=== PATIENT | female | born 1955 | race Caucasian/White ===

== ENCOUNTER 2018-03-03 22:00 | Emergency (ER) | payer MEDICARE ==
[2018-03-03 22:40] LABS: #Eosinphils 0.2 thou/uL (0.0-0.7); #Lymphocytes 2.3 thou/uL (1.20-3.40); #Monocytes 0.7 thou/uL (0.11-0.59); #Neutrophils 6.2 thou/uL (1.40-6.50); %Basophils 0.4 % (0.0-1.0); %Lymphocytes 24.5 % (21.0-51.0); %Monocytes 7.2 % (0.0-10.0); %Neutrophils 65.9 % (42.0-75.0); Mean Corpuscular HGB CONC 34.8 g/dL (32.0-36.0); Mean Corpuscular Hemoglobin 31.8 pg (27.0-31.0); Mean Corpuscular Volume 91.5 fl (81.0-99.0); Mean Platelet Volume 7.9 fL (7.4-10.4); Platelet Count 203 thou/uL (130-400); RBC Distribution Width 11.9 % (11.5-14.5); White Blood Cell (WBC) Count 9.4 thou/uL (4.8-10.8)
[2018-03-03 23:03] LABS: ALT (SGPT) 21 U/L (8-55); AST (SGOT) 14 U/L (5-34); Albumin 4.2 g/dL (3.4-4.8); Alkaline Phosphatase 92 U/L (40-150); Anion Gap 12 mmol/L (10-20); BUN (Urea Nitrogen) 13 mg/dL (9.8-20.1); Bilirubin, Total 0.4 mg/dL (0.2-1.2); Calc. Creatinine Clearance 0 mL/min (70-130); Calcium 10.3 mg/dL (7.8-10.44); Carbon Dioxide 26 mmol/L (23-31); Chloride 105 mmol/L (98-107); Estimated GFR-MDRD 75; Globulin 2.7 g/dL (2.4-3.5); Glucose 100 mg/dL (80-115); Potassium 4.3 mmol/L (3.5-5.1); Protein, Total 6.9 g/dL (6.0-8.3); Sodium 139 mmol/L (136-145)
--- NOTE | 2018-03-03 23:29 | ULT ---
LEFT LOWER EXTREMITY VENOUS DOPPLER WITH SPECTRAL ANALYSIS AND COLORFLOW EVALUATION: 03/03/2018 HISTORY: Left lower extremity pain, redness, and swelling. History of peripheral arterial disease. TECHNIQUE: Bolaños-scale, color-flow, Doppler evaluation, and spectral analysis of the left lower extremity venous structures is performed with 2D imaging. The left lower extremity common femoral, superficial femora l, popliteal, posterior tibial, most proximal greater saphenous, and profunda femoral veins are image d. FINDINGS: There is normal lumen compressibility, flow, and augmentation of the visualized deep venous structure s of the left lower extremity. IMPRESSION: No evidence of deep venous thrombosis involving the visualized deep venous structures of the left low er extremity. POS: KENN
[2018-03-04] MEDS ORDERED: Fentanyl 100 MCG/2 ML VIAL ONE (00:22)
== END 2018-03-04 00:45 | disposition home or self-care (01) ==
LOC: ERS 22:00
DX: I82.4Z2 Acute embolism and thrombosis of unspecified deep veins of left distal lower extremity (principal); F17.210 Nicotine dependence, cigarettes, uncomplicated; Z86.718 Personal history of other venous thrombosis and embolism; Z86.73 Personal history of transient ischemic attack (TIA), and cerebral infarction without residual deficits
CPT/HCPCS: 36415; 80053; 83605; 85025; 96374; 99406; J3010

== ENCOUNTER 2019-04-13 20:21 | Inpatient (IN) | payer MEDICARE ==
[~2019-04-13 20:21] MED LIST: Iopamidol 370 76% 100 ML VIAL ONE
--- NOTE | 2019-04-13 21:33 | RAD ---
EXAM: Single view of the chest HISTORY: Chest pain; left foot discoloration COMPARISON: 09/26/2010 FINDINGS: Single view of the chest shows a normal sized cardiomediastinal silhouette. There is no valery dence of consolidation, mass, or pleural effusion. Degenerative changes are seen in the spine. IMPRESSION: No evidence of acute cardiopulmonary disease
[2019-04-13 21:50] LABS: #Eosinphils 0.2 thou/uL (0.0-0.7); #Monocytes 0.7 thou/uL (0.11-0.59); #Neutrophils 5.3 thou/uL (1.40-6.50); %Basophils 0.5 % (0.0-1.0); %Eosinophils 2.1 % (0.0-10.0); %Lymphocytes 24.6 % (21.0-51.0); %Neutrophils 64.8 % (42.0-75.0); Hemoglobin 14.2 g/dL (12.0-16.0); Mean Corpuscular Hemoglobin 29.8 pg (27.0-31.0); Mean Corpuscular Volume 87.7 fL (78.0-98.0); Mean Platelet Volume 7.8 fL (7.4-10.4); Platelet Count 192 thou/uL (130-400); RBC Distribution Width 12.3 % (11.5-14.5); Red Blood Cell (RBC) Count 4.77 mill/uL (4.20-5.40); White Blood Cell (WBC) Count 8.2 thou/uL (4.8-10.8)
[2019-04-13 22:13] LABS: ALT (SGPT) 17 U/L (8-55); AST (SGOT) 15 U/L (5-34); Albumin 4.2 g/dL (3.4-4.8); Alkaline Phosphatase 96 U/L (40-150); Anion Gap 12 mmol/L (10-20); BUN (Urea Nitrogen) 12 mg/dL (9.8-20.1); Bilirubin, Total 0.5 mg/dL (0.2-1.2); Calc. Creatinine Clearance 0 mL/min (70-130); Calcium 10.2 mg/dL (7.8-10.44); Carbon Dioxide 24 mmol/L (23-31); Chloride 108 mmol/L (98-107); Estimated GFR-MDRD 75; Globulin 2.3 g/dL (2.4-3.5); Glucose 100 mg/dL (80-115); Potassium 4.1 mmol/L (3.5-5.1); Protein, Total 6.5 g/dL (6.0-8.3); Sodium 140 mmol/L (136-145)
--- NOTE | 2019-04-13 23:23 | CT ---
EXAM: CTA of the abdomen, pelvis, and bilateral lower extremities HISTORY: Left decreased pulses with left foot pain and discoloration COMPARISON: None TECHNIQUE: Multiple contiguous axial images were obtained a CTA of the abdomen, pelvis, and bilateral lower extremities with contrast. Sagittal and coronal 3-D MIP reformats were performed. FINDINGS: Liver: Unremarkable. Gallbladder: Absent. Kidneys: Unremarkable. Spleen: Unremarkable Pancreas: Unremarkable Bowel: Unremarkable. Retroperitoneum: No lymphadenopathy Reproductive organs: unremarkable Bones: Degenerative changes in the spine. Inferior thorax: Unremarkable Abdominal aorta. Normal caliber with mild diffuse atherosclerotic disease Celiac trunk: Patent SMA: Patent MARY ANN: Patent Renal arteries: Bilateral single renal arteries without significant atherosclerotic disease Bilateral common iliac arteries: Moderate diffuse nonfocal atherosclerotic disease Internal iliac arteries: Moderate diffuse nonfocal atherosclerotic disease External iliac arteries: Unremarkable Common femoral arteries: Unremarkable Frontal femoral arteries: Unremarkable Superficial femoral arteries: No significant right SFA abnormality. Occluded left SFA proximally. Popliteal arteries: No significant right popliteal artery abnormality. Reconstituted flow in the left popliteal artery via profunda collaterals. 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
[2019-04-14] MEDS ORDERED: Ondansetron PF 4 MG/2 ML Vial IVP PRN ×2 (00:56→11:48)
[2019-04-14] MEDS ORDERED: Ondansetron ODT 4 MG TAB SL PRN (00:56)
[2019-04-14 01:33] VITALS: BMI 41.2
--- NOTE | 2019-04-14 03:38 | HP ---
CHIEF COMPLAINT: Left foot pain and discoloration. HISTORY OF PRESENT ILLNESS: Ms. Whaley is a pleasant 63-year-old woman, with a history of peripheral arterial disease with recurring ischemic-type changes of the left foot requiring multiple procedures in the past including femoral popliteal bypass surgery x4 and femoral stent placement. The patient states she had throbbing pain on Sunday with bluish discoloration of her left foot, lasting approximately an hour and a half. Yesterday, the pain recurred again as well as the discoloration and persisted prompting her to come into the emergency department. In the ED, when assessed, she was noted to have discoloration with the foot being cool to touch. The patient apparently was seen in [place] back in October when she had her last surgery and was told there was 98% blockage to the left femoral artery. The patient currently reports a pain level of 10/10 and states it feels like severe throbbing that begins at the knee and worsens as it gets down to the ankle. Her case was discussed with Dr. Upton as per ED physician, who advised the patient to remain n.p.o. and he will see her in the morning. In the ED, there was difficulty palpating pulses even with the assistance of a Doppler. Of note, the CT angiogram did confirm occlusion of the left superficial femoral artery with reconstitution of flow distal to the knee via profunda collaterals. REVIEW OF SYSTEMS: The patient denies having any recent fevers, chills, or sweats. Denies having any headaches or dizziness. She does report feeling nauseated yesterday and so she did not take any of her regular medications. Denies having any abdominal pain or cramping. No urinary symptoms. No bowel changes. Denies having any other complaints. She denies any chest pain, palpitations, or shortness of breath. All other review of systems are negative. PAST MEDICAL HISTORY: 1. DVT. 2. Heart attack x3 in February. 3. TIA. PAST SURGICAL HISTORY: 1. CABG x2. 2. Appendectomy. 3. Cholecystectomy. 4. Tubal ligation. 5. Femoral-popliteal bypass surgery x4. SOCIAL HISTORY: The patient drinks socially and denies any tobacco use. Denies any drug use. ALLERGIES: 1. CODEINE. 2. DARVOCET. 3. DEMEROL. 4. MORPHINE. CURRENT MEDICATIONS: 1. Aspirin. 2. Clopidogrel. 3. Gabapentin. 4. Metoprolol. 5. Nitroglycerin. 6. Atorvastatin. PHYSICAL EXAMINATION: GENERAL: The patient was found sleeping and did not appear to be in any significant distress. VITAL SIGNS: Temperature 98.2, pulse 75, respirations 18, and O2 saturation 96% on room air, blood pressure 110/72. HEENT: Normocephalic and atraumatic. Pupils are equal, round, and reactive to light. Sclerae are without icterus. Oropharynx is clear. NECK: Supple. LUNGS: Clear to auscultation bilaterally. CARDIAC: Regular rate and rhythm. ABDOMEN: Soft, nontender, nondistended. Normoactive bowel sounds present. EXTREMITIES: Left foot cool to touch with slight discoloration. Mild dusky appearance to the plantar aspect. Unable to palpate pedal pulses. NEUROLOGIC: Alert and oriented x3. SKIN: Otherwise normal. Warm and dry. LABORATORY DATA: White blood count 8.2, hemoglobin 14.2, platelets 192. Sodium 140, potassium 4.1, creatinine 0.77, GFR 75, BUN 12, lactic acid 1.0, glucose 100. LFTs unremarkable. Troponin negative. Albumin 4.2, total protein 6.5. IMAGING DATA: As mentioned above in HPI. IMPRESSION AND PLAN: Ms. Whaley is a 63-year-old woman, being admitted for management of the following. 1. CT confirmed occlusion of the left superficial femoral artery. Case has been discussed with Dr. Upton who plans to evaluate tomorrow morning. At present, the patient complaining of 10/10 pain; however, allergic to multiple narcotics. We will try IV acetaminophen. Dr. Avendaño has advised to hold Plavix. We will also gently hydrate given the fact she may receive contrast with any surgery related studies. 2. Hypertension. The patient missed blood pressure medicine yesterday and today her blood pressure is on the lower side. We will continue to monitor blood pressure. We did reconcile her home medications. 3. Nausea. We have prescribed Zofran p.r.n. 4. Gastrointestinal prophylaxis. 5. Deep venous thrombosis prophylaxis. No mechanical SCDs. At this present time, any anticoagulation is surgically contraindicated given the fact she may undergo surgery tomorrow. 6. Full code status. Her surrogate decision maker is her daughter, Carol Whaley. The patient's case was discussed with Dr. Avendaño, who agrees with the plan of care as described above. Job ID: [id number]
[2019-04-14 04:29] LABS: #Eosinphils 0.1 thou/uL (0.0-0.7); #Monocytes 0.7 thou/uL (0.11-0.59); #Neutrophils 4.2 thou/uL (1.40-6.50); %Basophils 0.2 % (0.0-1.0); %Lymphocytes 28.8 % (21.0-51.0); %Monocytes 9.5 % (0.0-10.0); %Neutrophils 59.5 % (42.0-75.0); Hemoglobin 13.3 g/dL (12.0-16.0); Mean Corpuscular HGB CONC 34.1 g/dL (32.0-36.0); Mean Corpuscular Hemoglobin 30.1 pg (27.0-31.0); Mean Corpuscular Volume 88.3 fL (78.0-98.0); Mean Platelet Volume 7.9 fL (7.4-10.4); Platelet Count 165 thou/uL (130-400); RBC Distribution Width 12.2 % (11.5-14.5); Red Blood Cell (RBC) Count 4.42 mill/uL (4.20-5.40)
[2019-04-14 04:41] LABS: INR-International Normal Ratio 1.1; Prothrombin Time 14.6 SEC (12.0-14.7)
[2019-04-14 04:42] LABS: PTT 32.3 SEC (22.9-36.1)
[2019-04-14 04:53] LABS: Anion Gap 10 mmol/L (10-20); BUN (Urea Nitrogen) 10 mg/dL (9.8-20.1); Calc. Creatinine Clearance 138 mL/min (70-130); Carbon Dioxide 24 mmol/L (23-31); Chloride 109 mmol/L (98-107); Estimated GFR-MDRD 83; Glucose 95 mg/dL (80-115); Potassium 4.1 mmol/L (3.5-5.1); Sodium 139 mmol/L (136-145)
[2019-04-14] MEDS: Sodium Chloride 0.9% 1,000 ML IV SCH ×3 (05:35→22:44)
[2019-04-14] MEDS: Acetaminophen 650 MG in Premix Bag 1 BAG IVPB SCH ×2 (05:35→11:09)
[2019-04-14] MEDS: Metoprolol Tartrate 25 MG TAB PO SCH ×2 (08:53→20:31)
[2019-04-14] MEDS ORDERED: Famotidine/PF 20 mg/2ml Vial SLOW IVP SCH (09:00)
--- NOTE | 2019-04-14 11:01 | PDOC.PN ---
- Subjective Encounter Start Date: 04/14/19 Encounter Start Time: 09:00 -: old records requested/rev pt has left foot pain, no other complaints Patient seen and examined. No overnight events - Objective Resuscitation Status - Order Detail: 04/14/19 02:30 Resuscitation Status Routine Co-Sign Provider: Resuscitation Status: FULL: Full Resuscitation MAR Reviewed: Yes Vital Signs & Weight: Vital Signs (12 hours) Temp Pulse Resp BP Pulse Ox 04/14/19 07:55 97.7 F 61 16 98/65 96 04/14/19 04:00 98 F 62 16 100/66 95 04/14/19 01:30 96 04/14/19 00:55 98.2 F 75 18 110/72 96 Weight Weight 240 lb 3.2 oz I&O: 04/13/19 04/14/19 04/15/19 06:59 06:59 06:59 Intake Total 225 Balance 225 Result Diagrams: 04/14/19 04:09 04/14/19 04:09 Radiology Reviewed by me: Yes Phys Exam - Physical Examination Constitutional: NAD HEENT: PERRLA, moist MMs, sclera anicteric Neck: no JVD, supple Respiratory: no wheezing, no rales, no rhonchi Cardiovascular: RRR, no significant murmur, no rub Gastrointestinal: soft, non-tender, no distention, positive bowel sounds left foot cold, no discoloration Neurological: non-focal, normal sensation, moves all 4 limbs Lymphatic: no nodes Psychiatric: normal affect, A&O x 3 Skin: no rash, normal turgor Dx/Plan (1) Ischemia of left lower extremity Code(s): I99.8 - OTHER DISORDER OF CIRCULATORY SYSTEM Status: Acute (2) Occlusion of left femoral artery Code(s): I70.202 - UNSP ATHSCL [place] ARTERIES OF EXTREMITIES, LEFT LEG Status : Acute Comment: LEFT SUPERFICIAL FEMORAL ARTERY OCCLUSION (3) CAD (coronary artery disease) Code(s): I25.10 - ATHSCL HEART DISEASE OF [place] CORONARY ARTERY W/O ANG PCTRS Status: Chronic (4) Dyslipidemia Code(s): E78.5 - HYPERLIPIDEMIA, UNSPECIFIED Status: Chronic (5) Hypertension Code(s): I10 - ESSENTIAL (PRIMARY) HYPERTENSION Status: Chronic (6) Morbid obesity with BMI of 40.0-44.9, adult Code(s): E66.01 - MORBID (SEVERE) OBESITY DUE TO EXCESS CALORIES; Z68.41 - BODY MASS INDEX (BMI) 40.0-44.9, ADULT Status: Chronic (7) PAD (peripheral artery disease) Code(s): I73.9 - PERIPHERAL VASCULAR DISEASE, UNSPECIFIED Status: Chronic (8) Tobacco abuse Code(s): Z72.0 - TOBACCO USE Status: Chronic - Plan cont current plan of care * CV surgery recommendation noted * plan for angiography and get medical record from previous surgery * medication reviewed as below * symptomatic treatment. * pain control * home meds reconciled Review of Systems - Review of Systems ENT: negative: Ear Pain, Ear Discharge, Nose Pain, Nose Discharge, Nose Congestion, Mouth Pain, Mouth Swelling, Throat Pain, Throat Swelling, Other Respiratory: negative: Cough, Dry, Shortness of Breath, Hemoptysis, SOB with Excertion, Pleuritic Pain, Sputum, Wheezing Cardiovascular: negative: chest pain, palpitations, orthopnea, paroxysmal nocturnal dyspnea, edema, light headedness, other Gastrointestinal: negative: Nausea, Vomiting, Abdominal Pain, Diarrhea, Constipation, Melena, Hematochezia, Other Genitourinary: negative: Dysuria, Frequency, Incontinence, Hematuria, Retention , Other Musculoskeletal: Foot Pain. negative: Neck Pain, Shoulder Pain, Arm Pain, Back Pain, Hand Pain, Leg Pain, Other Skin: negative: Rash, Lesions, Andre, Bruising, Other - Medications/Allergies Allergies/Adverse Reactions: Allergies Allergy/AdvReac Type Severity Reaction Status Date / Time codeine Allergy Rash Verified 04/14/19 01:22 hydrocodone Allergy Rash Verified 04/14/19 01:22 meperidine [From Demerol] Allergy Rash Verified 04/14/19 01:22 morphine Allergy Rash Verified 04/14/19 01:22 propoxyphene Allergy Rash Verified 04/14/19 01:22 [From Darvocet-N] Medications: Current Medications Atorvastatin Calcium (Lipitor) 80 mg PO HS FELICE Famotidine (Pepcid) 20 mg SLOW IVP Q12HR [facility] Last Admin: 04/14/19 08:40 Dose: 20 mg Acetaminophen 650 mg/ Device 65 mls @ 400 mls/hr IVPB Q6HR [facility]EL[facility] Stop: 04/15/19 00:09 Last Admin: 04/14/19 05:35 Dose: 65 mls Sodium Chloride (Normal Saline 0.9%) 1,000 mls @ 75 mls/hr IV .[id number] [facility] Last Admin: 04/14/19 05:35 Dose: 1,000 mls Metoprolol Tartrate (Lopressor) 12.5 mg PO BID [facility] Last Admin: 04/14/19 08:53 Dose: Not Given Ondansetron HCl (Zofran) 4 mg IVP Q6H PRN PRN Reason: Nausea/Vomiting Stop: 04/14/19 11:43 Ondansetron HCl (Zofran Odt) 4 mg SL Q6H PRN PRN Reason: Nausea/Vomiting Stop: 04/14/19 11:43 Sodium Chloride (Flush - Normal Saline) 10 ml IVF Q12HR [facility] Last Admin: 04/14/19 08:41 Dose: 10 ml Sodium Chloride (Flush - Normal Saline) 10 ml IVF PRN PRN PRN Reason: Saline Flush
[2019-04-14] MEDS ORDERED: Sodium Chloride 0.65% Nasal 44 ML BOT EA NARE PRN (11:48)
[2019-04-14] MEDS ORDERED: Loratadine 10 MG TAB PO PRN (11:48)
[2019-04-14] MEDS ORDERED: Loperamide HCl 2 MG CAP PO PRN (11:48)
[2019-04-14] MEDS ORDERED: Cepastat Lozenges 1 LOZ PO PRN (11:48)
[2019-04-14] MEDS ORDERED: Zolpidem Tartrate 5 MG TAB PO PRN (11:48)
[2019-04-14] MEDS ORDERED: hydrALAZINE 20 MG/ML VIAL SLOW IVP PRN (11:48)
[2019-04-14] MEDS ORDERED: Ondansetron ODT 4 MG TAB PO PRN (11:48)
[2019-04-14] MEDS ORDERED: Nitroglycerin 0.4 MG TAB (25 Tab Bottle) SL PRN (11:49)
[2019-04-14] MEDS ORDERED: Bisacodyl 10 MG SUPP PR PRN (12:00)
[2019-04-14] MEDS ORDERED: Diabetic Tussin 200 MG/10 ML UDCUP PO PRN (12:00)
[2019-04-14] MEDS ORDERED: Calcium Carbonate 500 MG ChewTAB PO PRN (12:00)
[2019-04-14] MEDS ORDERED: Artificial Tears 18 DROP/0.9 ML EA EYE PRN (12:00)
--- NOTE | 2019-04-14 14:02 | CON ---
DATE OF CONSULTATION: 04/14/2019 CHIEF COMPLAINT: Left foot pain. HISTORY OF PRESENT ILLNESS: The patient is a 63-year-old woman with no history of smoking or diabetes, but a positive family history of atherosclerotic disease. She has recently moved here from the [place], [place] area. She has an extensive vascular history primarily involving her left lower extremity. She describes 4 different revascularization procedures on her left lower extremity in the last few years and describes having had a percutaneous coronary intervention following a myocardial infarction last October. On Sunday, she had a brief episode of pain and discoloration in her left leg associated with essentially crippling claudication pain. She had a second episode yesterday afternoon that persisted long enough that last night she presented to the emergency room. Though painful, she had not developed any paresthesias or neurapraxia, and the ankle remained mobile. CT angiography demonstrated findings consistent with an SFA occlusion with intact trifurcation vessel runoff. Overnight, her symptoms have largely resolved with respect to resting symptoms, but she still has difficulty doing much more than simply walking from the bed to the bathroom and back. PAST MEDICAL HISTORY: As above. MEDICATIONS: 1. Lopressor 12.5 mg b.i.d. 2. Lipitor 80 mg at bedtime. 3. Plavix 75 mg a day. 4. Baby aspirin a day. ALLERGIES: SHE REPORTS RASHES WITH CODEINE, HYDROCODONE, MEPERIDINE, MORPHINE, AND PROPOXYPHENE. SOCIAL HISTORY: She denies smoking. She has a younger sister, who has had a heart attack. REVIEW OF SYSTEMS: Negative for any chest pain currently. Negative for any shortness of breath. Negative for eye, speech, facial, or extremity symptoms consistent with recent TIAs. PHYSICAL EXAMINATION: GENERAL: She is in no distress. VITAL SIGNS: She is 5 feet 4 inches, weighs 240 pounds. Heart rate 61, blood pressure 98/65, temperature 97.7. HEENT: She has no obvious xanthelasma. No JVD. No carotid bruits. CHEST: Clear to auscultation. She has a regular rate and rhythm. ABDOMEN: Obese, soft, and nontender. EXTREMITIES: She has palpable radial and femoral pulses bilaterally. She has well-healed surgical scars on her thigh and proximal calf medially consistent with multiple femoropopliteal procedures consistent with her description of one of them being with vein. She has some dependent rubor in the left foot that is far more noticeable when she is standing than when her leg is elevated. Capillary refill in that foot is about 2 seconds. Capillary refill in the right foot is fairly brisk, but I am not able to palpate pedal pulses. There are some varicosities in the ankle on the right side. LABORATORY DATA: Showed a white count of 8.2, hemoglobin 14.2, hematocrit 41.8, platelets 192,000. PT 14.6, INR 1.1, PTT 32.3. Sodium was 140, potassium was 4.1, glucose was 100, BUN 12, creatinine 0.77. LFTs were normal. IMAGING STUDIES: Chest x-ray is essentially normal. CTA for aorta with runoffs suggest a proximal to mid SFA occlusion with reconstitution of the trifurcation vessels on the left side, which at the time of the study last night appeared tiny. There appears to be stents in the distal SFA as it is passing in the Bro canal and then in the popliteal just barely above the knee joint on the left with some calcifications in the common femoral. IMPRESSION AND RECOMMENDATIONS: The patient currently does not have a limb truly at risk, but she is going to almost surely be left with crippling claudication based on what she is describing to me right now. She probably ought to have conventional arteriography to get better detail of her anatomy, which will also potentially offer the option for percutaneous intervention, and I would like to get records from her caregivers in the [place], [place] area including Dr. Devan Myers, her vascular surgeon; Dr. Sawyer Vidal, her recruiter manager; Sahra Page, who is the nurse practitioner who provided her primary care. Job ID: [id number]
[2019-04-14] MEDS ORDERED: Acetaminophen 325 MG TAB PO PRN (14:32)
[2019-04-14] MEDS: Ketorolac Tromethamine 30 MG/ML VIAL IVP PRN (16:15)
[2019-04-14] MEDS: Atorvastatin Calcium 40 MG TAB PO SCH (20:31)
[2019-04-14] MEDS: Famotidine 20 MG TAB PO SCH (20:31)
[2019-04-14] MEDS ORDERED: Senokot S 8.6-50 MG TAB PO PRN (21:00)
[2019-04-15] MEDS: Ketorolac Tromethamine 30 MG/ML VIAL IVP PRN (05:57)
[2019-04-15] MEDS: Metoprolol Tartrate 25 MG TAB PO SCH ×2 (09:28→21:21)
[2019-04-15] MEDS: Aspirin 81 mg Enteric Coated Tablet PO SCH (11:03)
[2019-04-15] MEDS: Clopidogrel Bisulfate 75 MG TAB PO SCH (11:03)
[2019-04-15] MEDS: Famotidine 20 MG TAB PO SCH ×2 (11:03→21:20)
[2019-04-15] MEDS ORDERED: Midazolam HCl 2 mg/2 ml Vial ONE (11:08)
[2019-04-15] MEDS ORDERED: diphenhydrAMINE 50 MG/ML VIAL ONE (11:09)
--- NOTE | 2019-04-15 11:31 | PDOC.PN ---
- Subjective Encounter Start Date: 04/15/19 Encounter Start Time: 09:30 Patient seen and examined. No new complaints. No overnight events - Objective Resuscitation Status - Order Detail: 04/14/19 02:30 Resuscitation Status Routine Co-Sign Provider: Resuscitation Status: FULL: Full Resuscitation MAR Reviewed: Yes Vital Signs & Weight: Vital Signs (12 hours) Temp Pulse Resp BP Pulse Ox 04/15/19 07:54 97.5 F L 58 L 18 110/72 96 04/15/19 07:51 98 04/15/19 04:45 97.6 F 59 L 20 111/72 98 04/15/19 00:30 98.1 F 71 20 108/77 94 L Weight Weight 240 lb 3.2 oz I&O: 04/14/19 04/15/19 04/16/19 06:59 06:59 06:59 Intake Total 225 2850 Balance 225 2850 Result Diagrams: 04/14/19 04:09 04/14/19 04:09 Phys Exam - Physical Examination Constitutional: NAD HEENT: PERRLA, moist MMs, sclera anicteric Neck: no JVD, supple Respiratory: no wheezing, no rales, no rhonchi Cardiovascular: RRR, no significant murmur, no rub Gastrointestinal: soft, non-tender, no distention, positive bowel sounds Musculoskeletal: no edema, pulses present left foot cold compared to right Neurological: non-focal, normal sensation Lymphatic: no nodes Psychiatric: normal affect, A&O x 3 Dx/Plan (1) Ischemia of left lower extremity Code(s): I99.8 - OTHER DISORDER OF CIRCULATORY SYSTEM Status: Acute (2) Occlusion of left femoral artery Code(s): I70.202 - UNSP ATHSCL [place] ARTERIES OF EXTREMITIES, LEFT LEG Status : Acute Comment: LEFT SUPERFICIAL FEMORAL ARTERY OCCLUSION (3) CAD (coronary artery disease) Code(s): I25.10 - ATHSCL HEART DISEASE OF [place] CORONARY ARTERY W/O ANG PCTRS Status: Chronic (4) Dyslipidemia Code(s): E78.5 - HYPERLIPIDEMIA, UNSPECIFIED Status: Chronic (5) Hypertension Code(s): I10 - ESSENTIAL (PRIMARY) HYPERTENSION Status: Chronic (6) Morbid obesity with BMI of 40.0-44.9, adult Code(s): E66.01 - [place] (SEVERE) OBESITY DUE TO EXCESS CALORIES; Z68.41 - BODY MASS INDEX (BMI) 40.0-44.9, ADULT Status: Chronic (7) PAD (peripheral artery disease) Code(s): I73.9 - PERIPHERAL VASCULAR DISEASE, UNSPECIFIED Status: Chronic (8) Tobacco abuse Code(s): Z72.0 - TOBACCO USE Status: Chronic - Plan cont current plan of care * today plan for angiography and possible PTCA * Medication reviewed as below * symptomatic treatment. Review of Systems - Review of Systems Eyes: negative: Pain, Vision Change, Conjunctivae Inflammation, Eyelid Inflammation, Redness, Other ENT: negative: Ear Pain, Ear Discharge, Nose Pain, Nose Discharge, Nose Congestion, Mouth Pain, Mouth Swelling, Throat Pain, Throat Swelling, Other Respiratory: negative: Cough, Dry, Shortness of Breath, Hemoptysis, SOB with Excertion, Pleuritic Pain, Sputum, Wheezing Cardiovascular: negative: chest pain, palpitations, orthopnea, paroxysmal nocturnal dyspnea, edema, light headedness, other Gastrointestinal: negative: Nausea, Vomiting, Abdominal Pain, Diarrhea, Constipation, Melena, Hematochezia, Other Genitourinary: negative: Dysuria, Frequency, Incontinence, Hematuria, Retention , Other Musculoskeletal: Foot Pain. negative: Neck Pain, Shoulder Pain, Arm Pain, Back Pain, Hand Pain, Leg Pain, Other - Medications/Allergies Allergies/Adverse Reactions: Allergies Allergy/AdvReac Type Severity Reaction Status Date / Time codeine Allergy Rash Verified 04/14/19 01:22 hydrocodone Allergy Rash Verified 04/14/19 01:22 meperidine [From Demerol] Allergy Rash Verified 04/14/19 01:22 morphine Allergy Rash Verified 04/14/19 01:22 propoxyphene Allergy Rash Verified 04/14/19 01:22 [From Darvocet-N] Medications: Current Medications Acetaminophen (Tylenol) 650 mg PO Q6H PRN PRN Reason: Headache/Fever or Pain Artificial Tears (Tears Naturale) 2 drop EA EYE PRN PRN PRN Reason: Dry Eyes Aspirin (Ecotrin) 81 mg PO DAILY [facility] Last Admin: 04/15/19 11:03 Dose: Not Given Atorvastatin Calcium (Lipitor) 80 mg PO HS [facility] Last Admin: 04/14/19 20:31 Dose: 80 mg Bisacodyl (Dulcolax) [address] DAILYPRN PRN PRN Reason: Constipation Calcium Carbonate (Tums) 1,000 mg PO Q4H PRN PRN Reason: Heartburn or Indigestion Clopidogrel Bisulfate (Plavix) 75 mg PO DAILY [facility] Last Admin: 04/15/19 11:03 Dose: Not Given Famotidine (Pepcid) 20 mg PO BID [facility] Last Admin: 04/15/19 11:03 Dose: Not Given Guaifenesin (Robitussin Sf) 200 mg PO Q4H PRN PRN Reason: Cough Hydralazine HCl (Apresoline) 10 mg SLOW IVP Q4H PRN PRN Reason: SBP > 180 and HR < 70 Sodium Chloride (Normal Saline 0.9%) 1,000 mls @ 75 mls/hr IV .[id number] [facility] Last Admin: 04/14/19 22:44 Dose: 1,000 mls Ketorolac Tromethamine (Toradol) 15 mg IVP Q6H PRN PRN Reason: Pain Stop: 04/19/19 11:50 Last Admin: 04/15/19 05:57 Dose: 15 mg Loperamide HCl (Imodium) 2 mg PO PRN PRN PRN Reason: Diarrhea/Loose Stools Loratadine (Claritin) 10 mg PO DAILYPRN PRN PRN Reason: Sinus Symptoms Metoprolol Tartrate (Lopressor) 12.5 mg PO BID [facility] Last Admin: 04/15/19 09:28 Dose: 12.5 mg Nitroglycerin (Nitrostat) 0.4 mg SL Q5MIN PRN PRN Reason: chest pain Ondansetron HCl (Zofran Odt) 4 mg PO Q6H PRN PRN Reason: Nausea/Vomiting Ondansetron HCl (Zofran) 4 mg IVP Q6H PRN PRN Reason: Nausea/Vomiting Senna/Docusate Sodium (Senokot S) 2 tab PO BID PRN PRN Reason: Constipation Sodium Chloride (Flush - Normal Saline) 10 ml IVF Q12HR [facility] Last Admin: 04/15/19 09:30 Dose: Not Given Sodium Chloride (Flush - Normal Saline) 10 ml IVF PRN PRN PRN Reason: Saline Flush Sodium Chloride ([place] Nasal Arnold 0.65%) 0 ml EA NARE QIDPRN PRN PRN Reason: Nasal Congestion Throat Lozenges (Cepastat Lozenges) 1 edel PO Q2H PRN PRN Reason: Sore Throat Zolpidem Tartrate (Ambien) 5 mg PO HSPRN PRN PRN Reason: Insomnia
[2019-04-15] MEDS ORDERED: hydrALAZINE 20 MG/ML VIAL ONE (12:19)
[2019-04-15] MEDS ORDERED: Iopamidol 370 76% 50 ML VIAL FS ONE (14:39)
--- NOTE | 2019-04-15 15:26 | OP ---
DATE OF PROCEDURE: 04/15/2019 PROCEDURES PERFORMED: Ultrasound guidance, right common femoral artery access and aortography with left lower extremity runoff with selective angiography of superficial femoral artery. PREOPERATIVE DIAGNOSIS: Peripheral vascular disease. POSTOPERATIVE DIAGNOSIS: Peripheral vascular disease. ANESTHESIA: 1% lidocaine, local anesthesia with intravenous sedation consisting of 2 mg of Versed and 50 mg of Benadryl. INDICATIONS: The patient is a 63-year-old woman with multiple previous left lower extremity revascularization procedures including percutaneous and open procedures. She recently had sudden onset of discoloration and pain in her left foot that has since resolved, but she has left with essentially crippling claudication. CT angiography demonstrated occlusion of her SFA, but had marginal imaging of her outflow. FINDINGS: Proximal occlusion of the SFA. Able to advance the catheter to the midportion of the stent in the mid SFA, but not able to advance a wire or see any significant contrast passed in the SFA beyond that approach. The diseased infrageniculate popliteal artery reconstituted. The trifurcation was small and initial view of the trifurcation appeared to indicate that the posterior tibial occluded. The followup view appears that both the anterior tibial and posterior tibial crossed to the foot, but the peroneal does not quite. NARRATIVE REPORT: After informed consent was obtained, the patient was positioned on the cardiac catheterization table and her groins, prepped and draped in a sterile fashion. She was given intravenous sedation consisting of incremental doses of Versed totaling 2 mg and 50 mg of Benadryl. Ultrasound was used to identify the common femoral artery and its bifurcation. 1% lidocaine was infiltrated in the skin and subcutaneous tissues at that level and then a micropuncture needle was used to cannulate the femoral artery under ultrasonic guidance. A guidewire was placed and passed retrograde into the iliac system under fluoroscopy. The needle was removed and the micropuncture sheath was inserted over the wire. Through that sheath, a Bentson wire was placed and the micropuncture sheath was exchanged for a 5-Romanian sheath. A Contra catheter over the Bentson wire was guided into the aorta and a flush aortogram was obtained that showed no significant disease within the distal aorta or in the iliac system. The catheter was withdrawn, down to the level of the bifurcation and another aortogram was obtained getting clearer pictures of the iliacs. Under fluoroscopy, the Contra catheter and Bentson wire were manipulated to advance the wire into the left iliac system and then over that wire guide, the Bentson catheter and injection of the common femoral was undertaken. There was a network of profunda collaterals and fairly proximal occlusion of the SFA. It was relatively easy to guide the wire and catheter about half way through the stent in the mid SFA. An injection at that point, failed to show any further patency and there were profunda collaterals that were filling through reflux of contrast. The catheter was then withdrawn back to the level of the common femoral, and serial imaging was undertaken first using half-strength contrast and then with full-strength contrast in order to image the trifurcation vessels in the runoff to the foot. The catheter over the wire was then withdrawn and removed. The sheath was removed and hemostasis achieved with direct pressure. The patient was taken to the recovery area for initial observation before being returned to the room. Job ID: [id number]
[2019-04-15] MEDS ORDERED: Ketorolac Tromethamine 30 MG/ML VIAL ONE (16:30)
[2019-04-15] MEDS: Atorvastatin Calcium 40 MG TAB PO SCH (21:20)
[2019-04-16] MEDS: Sodium Chloride 0.9% 1,000 ML IV SCH (00:59)
[2019-04-16] MEDS: Ketorolac Tromethamine 30 MG/ML VIAL IVP PRN ×2 (04:40→10:12)
[2019-04-16 04:45] LABS: #Eosinphils 0.2 thou/uL (0.0-0.7); #Lymphocytes 1.9 thou/uL (1.20-3.40); #Monocytes 0.6 thou/uL (0.11-0.59); #Neutrophils 3.5 thou/uL (1.40-6.50); %Basophils 0.4 % (0.0-1.0); %Eosinophils 2.9 % (0.0-10.0); %Lymphocytes 30.3 % (21.0-51.0); %Monocytes 9.2 % (0.0-10.0); %Neutrophils 57.3 % (42.0-75.0); Hemoglobin 12.1 g/dL (12.0-16.0); Mean Corpuscular HGB CONC 34.7 g/dL (32.0-36.0); Mean Corpuscular Hemoglobin 30.8 pg (27.0-31.0); Mean Corpuscular Volume 88.7 fL (78.0-98.0); Mean Platelet Volume 8.6 fL (7.4-10.4); Platelet Count 151 thou/uL (130-400); RBC Distribution Width 12.2 % (11.5-14.5); Red Blood Cell (RBC) Count 3.93 mill/uL (4.20-5.40); White Blood Cell (WBC) Count 6.1 thou/uL (4.8-10.8)
[2019-04-16 04:59] LABS: Anion Gap 9 mmol/L (10-20); BUN (Urea Nitrogen) 21 mg/dL (9.8-20.1); Calc. Creatinine Clearance 138 mL/min (70-130); Calcium 9.4 mg/dL (7.8-10.44); Carbon Dioxide 23 mmol/L (23-31); Chloride 112 mmol/L (98-107); Estimated GFR-MDRD 83; Glucose 96 mg/dL (80-115); Potassium 4.4 mmol/L (3.5-5.1); Sodium 140 mmol/L (136-145)
[2019-04-16] MEDS: Metoprolol Tartrate 25 MG TAB PO SCH ×2 (09:18→09:23)
[2019-04-16] MEDS: Famotidine 20 MG TAB PO SCH (09:18)
[2019-04-16] MEDS: Aspirin 81 mg Enteric Coated Tablet PO SCH (09:18)
[2019-04-16] MEDS: Clopidogrel Bisulfate 75 MG TAB PO SCH (09:18)
--- NOTE | 2019-04-16 14:06 | PDOC.PN ---
- Subjective Encounter Start Date: 04/16/19 Encounter Start Time: 10:00 Patient seen and examined. No new complaints. No overnight events still has cold left foot and pain in left foot - Objective Resuscitation Status - Order Detail: 04/14/19 02:30 Resuscitation Status Routine Co-Sign Provider: Resuscitation Status: FULL: Full Resuscitation MAR Reviewed: Yes Vital Signs & Weight: Vital Signs (12 hours) Temp Pulse Resp BP Pulse Ox 04/16/19 11:54 98.0 F 69 16 118/75 98 04/16/19 07:17 97.7 F 57 L 14 106/67 98 04/16/19 04:49 98.0 F 70 20 100/64 97 Weight Weight 240 lb 3.2 oz I&O: 04/15/19 04/16/19 04/17/19 06:59 06:59 06:59 Intake Total 2850 1250 240 Balance 2850 1250 240 Result Diagrams: 04/16/19 04:01 04/16/19 04:01 Phys Exam - Physical Examination Constitutional: NAD HEENT: PERRLA, moist MMs, sclera anicteric Neck: no JVD, supple Respiratory: no wheezing, no rales, no rhonchi Cardiovascular: RRR, no significant murmur, no rub Gastrointestinal: soft, non-tender, no distention Musculoskeletal: no edema left foot cold Neurological: non-focal, normal sensation, moves all 4 limbs Lymphatic: no nodes Psychiatric: normal affect, A&O x 3 Skin: no rash, normal turgor Dx/Plan (1) Ischemia of left lower extremity Code(s): I99.8 - OTHER DISORDER OF CIRCULATORY SYSTEM Status: Acute Comment : s/p angiography (2) Occlusion of left femoral artery Code(s): I70.202 - UNSP ATHSCL [place] ARTERIES OF EXTREMITIES, LEFT LEG Status : Acute Comment: LEFT SUPERFICIAL FEMORAL ARTERY OCCLUSION (3) CAD (coronary artery disease) Code(s): I25.10 - ATHSCL HEART DISEASE OF [place] CORONARY ARTERY W/O ANG PCTRS Status: Chronic (4) Dyslipidemia Code(s): E78.5 - HYPERLIPIDEMIA, UNSPECIFIED Status: Chronic (5) Hypertension Code(s): I10 - ESSENTIAL (PRIMARY) HYPERTENSION Status: Chronic (6) Morbid obesity with BMI of 40.0-44.9, adult Code(s): E66.01 - MORBID (SEVERE) OBESITY DUE TO EXCESS CALORIES; Z68.41 - BODY MASS INDEX (BMI) 40.0-44.9, ADULT Status: Chronic (7) PAD (peripheral artery disease) Code(s): I73.9 - PERIPHERAL VASCULAR DISEASE, UNSPECIFIED Status: Chronic (8) Tobacco abuse Code(s): Z72.0 - TOBACCO USE Status: Chronic - Plan cont current plan of care * continue medical therapy * CV surgery on case and further treatment plan will defer to them * pain controlled * medication reviewed as below * symptomatic treatment. Review of Systems - Review of Systems ENT: negative: Ear Pain, Ear Discharge, Nose Pain, Nose Discharge, Nose Congestion, Mouth Pain, Mouth Swelling, Throat Pain, Throat Swelling, Other Respiratory: negative: Cough, Dry, Shortness of Breath, Hemoptysis, SOB with Excertion, Pleuritic Pain, Sputum, Wheezing Cardiovascular: negative: chest pain, palpitations, orthopnea, paroxysmal nocturnal dyspnea, edema, light headedness, other Gastrointestinal: negative: Nausea, Vomiting, Abdominal Pain, Diarrhea, Constipation, Melena, Hematochezia, Other Genitourinary: negative: Dysuria, Frequency, Incontinence, Hematuria, Retention , Other Musculoskeletal: Foot Pain. negative: Neck Pain, Shoulder Pain, Arm Pain, Back Pain, Hand Pain, Leg Pain, Other Skin: negative: Rash, Lesions, Andre, Bruising, Other - Medications/Allergies Allergies/Adverse Reactions: Allergies Allergy/AdvReac Type Severity Reaction Status Date / Time codeine Allergy Rash Verified 04/14/19 01:22 hydrocodone Allergy Rash Verified 04/14/19 01:22 meperidine [From Demerol] Allergy Rash Verified 04/14/19 01:22 morphine Allergy Rash Verified 04/14/19 01:22 propoxyphene Allergy Rash Verified 04/14/19 01:22 [From Darvocet-N] Medications: Current Medications Acetaminophen (Tylenol) 650 mg PO Q6H PRN PRN Reason: Headache/Fever or Pain Artificial Tears (Tears Naturale) 2 drop EA EYE PRN PRN PRN Reason: Dry Eyes Aspirin (Ecotrin) 81 mg PO DAILY [facility] Last Admin: 04/16/19 09:18 Dose: 81 mg Atorvastatin Calcium (Lipitor) 80 mg PO HS [facility] Last Admin: 04/15/19 21:20 Dose: 80 mg Bisacodyl (Dulcolax) 10 mg [place] DAILYPRN PRN PRN Reason: Constipation Calcium Carbonate (Tums) 1,000 mg PO Q4H PRN PRN Reason: Heartburn or Indigestion Clopidogrel Bisulfate (Plavix) 75 mg PO DAILY [facility] Last Admin: 04/16/19 09:18 Dose: 75 mg Famotidine (Pepcid) 20 mg PO BID [facility] Last Admin: 04/16/19 09:18 Dose: 20 mg Guaifenesin (Robitussin Sf) 200 mg PO Q4H PRN PRN Reason: Cough Hydralazine HCl (Apresoline) 10 mg SLOW IVP Q4H PRN PRN Reason: SBP > 180 and HR < 70 Sodium Chloride (Normal Saline 0.9%) 1,000 mls @ 75 mls/hr IV .[id number] [facility] Last Admin: 04/16/19 00:59 Dose: 1,000 mls Ketorolac Tromethamine (Toradol) 15 mg IVP Q6H PRN PRN Reason: Pain Stop: 04/19/19 11:50 Last Admin: 04/16/19 10:12 Dose: 15 mg Loperamide HCl (Imodium) 2 mg PO PRN PRN PRN Reason: Diarrhea/Loose Stools Loratadine (Claritin) 10 mg PO DAILYPRN PRN PRN Reason: Sinus Symptoms Metoprolol Tartrate (Lopressor) 12.5 mg PO BID [facility] Last Admin: 04/16/19 09:23 Dose: Not Given Nitroglycerin (Nitrostat) 0.4 mg SL Q5MIN PRN PRN Reason: chest pain Ondansetron HCl (Zofran Odt) 4 mg PO Q6H PRN PRN Reason: Nausea/Vomiting Ondansetron HCl (Zofran) 4 mg IVP Q6H PRN PRN Reason: Nausea/Vomiting Senna/Docusate Sodium (Senokot S) 2 tab PO BID PRN PRN Reason: Constipation Sodium Chloride (Flush - Normal Saline) 10 ml IVF Q12HR [facility] Last Admin: 04/16/19 09:20 Dose: Not Given Sodium Chloride (Flush - Normal Saline) 10 ml IVF PRN PRN PRN Reason: Saline Flush Sodium Chloride ([place] Nasal [place] 0.65%) 0 ml EA NARE QIDPRN PRN PRN Reason: Nasal Congestion Throat Lozenges (Cepastat Lozenges) 1 edel PO Q2H PRN PRN Reason: Sore Throat Zolpidem Tartrate (Ambien) 5 mg PO HSPRN PRN PRN Reason: Insomnia
[2019-04-16 15:22] VITALS: BP 146/81; TEMP 97.7
--- NOTE | 2019-04-16 15:25 | DIS ---
DATE OF ADMISSION: 04/14/2019 DATE OF DISCHARGE: 04/16/2019 PRIMARY CARE PHYSICIAN: [facility] Call Admission. DISCHARGE DISPOSITION: Home. PRIMARY DISCHARGE DIAGNOSES: Ischemia of left foot, occlusion of left superficial femoral artery. SECONDARY DISCHARGE DIAGNOSES: Tobacco abuse disorder, peripheral arterial disease, morbid obesity with BMI of 41, hypertension, dyslipidemia, coronary artery disease. PRIMARY PROCEDURE/OPERATION: Angiography of lower extremity. RADIOLOGICAL INVESTIGATION: Aorta with runoff CT angiography showed occlusion of left superficial femoral artery. SIGNIFICANT LABORATORY DATA: WBC 6.1, hemoglobin 12.1, platelets 151. INR 1.1. Sodium 140, creatinine 0.71, calcium 9.4. LFT normal. Cardiac enzyme negative. DISCHARGE MEDICATIONS: The patient will continue all her previous medications. 1. Nitroglycerin 0.4 mg sublingual p.r.n. as directed. 2. Aspirin 81 mg daily. 3. Lipitor 80 mg p.o. at bedtime. 4. Plavix 75 mg p.o. daily. 5. Lopressor 12.5 mg b.i.d. 6. Tums 1000 mg q.4 hourly p.r.n. CONTRAINDICATION: None. CODE STATUS: Full code. INPATIENT SENIOR COBOL DEVELOPER: Dr. Upton was consulted while in hospital. ALLERGIES: CODEINE, HYDROCODONE, DEMEROL, MORPHINE, PROPOXYPHENE. DISCHARGE PLAN: Posthospital, the patient is instructed to follow up with primary care physician as well as the patient is also instructed to follow up with primary obiee consultant and primary cardiovascular surgeon. HOSPITAL COURSE: A 63-year-old female, who was initially evaluated at [facility]. Subsequently, she was brought to our emergency room for evaluation. The patient was having left foot coldness and pain. She has underlying history of peripheral arterial disease. She had CT angiography, which showed occlusion of the left superficial femoral artery. We consulted cardiovascular surgeon for further management. We obtained medical record from her primary obiee consultant and primary cardiovascular surgeon's office. Subsequently, cardiovascular surgeon decided to do an invasive angiography. Based on invasive angiography report, the patient has significant vascular problem, but cardiovascular surgeon decided that it is not fixable problem for them and that is why they decided to discharge her home with medical therapy. The patient is seen and examined at bedside today. Please see my progress note from today for further detail. The patient is discharged by cardiovascular surgeon. Job ID: [id number]
--- NOTE | 2019-04-17 11:34 | DIS ---
DATE OF ADMISSION: 04/14/2019 DATE OF DISCHARGE: 04/16/2019 PRINCIPAL DIAGNOSIS: Peripheral vascular disease. PROCEDURES PERFORMED: Aortography with left lower extremity runoff, 04/15/2019. HISTORY OF PRESENT ILLNESS AND HOSPITAL COURSE: The patient is a 63-year-old woman with an extensive vascular history involving her left lower extremity while records from [place], [place] are not immediately available for review. She describes and has scars that are consistent with at least 2 surgical femoral popliteal bypass procedures and she has multiple stenting procedures in her left lower extremity. The day prior to admission, she had several minutes of severe pain and discoloration in her leg and then on the day of presentation, she had another episode that persisted for several hours. She was admitted to the hospital, but by the next morning her symptoms at least at rest had largely resolved. She underwent aortography with runoffs, which demonstrated occluded stents in her mid SFA, distal SFA, and in her popliteal extending down to just above the knee joint. She had proximal occlusion of her SFA, but a rich network of collaterals that filled the small infrageniculate popliteal artery. She had anterior and posterior tibial runoff to the foot, although the vessel seemed to be small. Historically, she says and she has scars consistent with previous use of vein for revascularizing that leg. At this point, she is describing severe claudication, but not truly crippling claudication and is not having any resting symptoms. Because she has such poor revascularization options and a poor track record on previous attempts at revascularization, she is going to be discharged home now with an attempt to manage her medically. I have discussed with her strategies for recruitment of collaterals through a regular walking regimen. I will plan on seeing her in the office initially in about 2 weeks, but then assuming she remains stable, every few months after that. Job ID: [id number]
== END 2019-04-16 16:15 | disposition home or self-care (01) | DRG 300 ==
LOC: ERS 20:21 → SURG A 04-14 00:43
PROVIDERS: ADMIT Internal Medicine; ATTEND Internal Medicine
PROC: B41G1ZZ Fluoroscopy of Left Lower Extremity Arteries using Low Osmolar Contrast (ICD-10-PCS; principal; 2019-04-15)
DX: I70.202 Unspecified atherosclerosis of native arteries of extremities, left leg (principal); Z68.41 Body mass index [BMI] 40.0-44.9, adult; I10 Essential (primary) hypertension; E66.01 Morbid (severe) obesity due to excess calories; Z86.718 Personal history of other venous thrombosis and embolism; Z95.1 Presence of aortocoronary bypass graft; Z90.49 Acquired absence of other specified parts of digestive tract; Z98.51 Tubal ligation status; Z88.5 Allergy status to narcotic agent; Z88.6 Allergy status to analgesic agent; Z79.82 Long term (current) use of aspirin; Z79.899 Other long term (current) drug therapy; Z72.0 Tobacco use
CPT/HCPCS: 36251; 36415; 71045; 75630; 75635; 76942; 80048; 80053; 83605; 84484; 85025; 85610; 85730; 93005; 99152; C1769; J0131; J0360; J1200; J1644; J1885; J2250; Q9967; S0028

== ENCOUNTER 2019-05-06 10:59 | Outpatient (CLI) | payer MEDICARE ==
[2019-05-06 13:40] LABS: Hemoglobin 14.5 g/dL (12.0-16.0); Mean Corpuscular HGB CONC 33.7 g/dL (32.0-36.0); Mean Corpuscular Hemoglobin 30.3 pg (27.0-31.0); Mean Corpuscular Volume 89.8 fL (78.0-98.0); Mean Platelet Volume 7.8 fL (7.4-10.4); Platelet Count 200 thou/uL (130-400); RBC Distribution Width 12.6 % (11.5-14.5); Red Blood Cell (RBC) Count 4.78 mill/uL (4.20-5.40); White Blood Cell (WBC) Count 7.9 thou/uL (4.8-10.8)
[2019-05-06 14:16] LABS: Anion Gap 11 mmol/L (10-20); BUN (Urea Nitrogen) 11 mg/dL (9.8-20.1); Calc. Creatinine Clearance 0 mL/min (70-130); Calcium 10.8 mg/dL (7.8-10.44); Carbon Dioxide 25 mmol/L (23-31); Chloride 108 mmol/L (98-107); Estimated GFR-MDRD 84; Glucose 86 mg/dL (80-115); Potassium 3.9 mmol/L (3.5-5.1); Sodium 140 mmol/L (136-145)
== END 2019-05-06 11:00 | disposition home or self-care (01) ==
LOC: LABBT 10:59
PROVIDERS: ATTEND Thoracic Surgery (Cardiothoracic Vascular Surgery)
DX: Z01.812 Encounter for preprocedural laboratory examination (principal); I73.9 Peripheral vascular disease, unspecified
CPT/HCPCS: 80048; 85027

== ENCOUNTER 2019-05-06 11:30 | Inpatient (IN) | payer MEDICARE ==
[2019-05-07] MEDS ORDERED: Heparin 5,000 UNITS/ML VIAL ONE ×2 (06:35→08:52)
[2019-05-07] MEDS ORDERED: Protamine Sulfate 50 MG/5 ML VIAL ONE ×2 (06:35→17:13)
[2019-05-07] MEDS ORDERED: Fentanyl 100 MCG/2 ML VIAL ONE ×4 (06:55→18:57)
[2019-05-07] MEDS ORDERED: Midazolam HCl 2 mg/2 ml Vial ONE (06:55)
[2019-05-07] MEDS ORDERED: Glycopyrrolate 0.2 MG/ML 5 ML SYRINGE ONE (08:52)
[2019-05-07] MEDS ORDERED: Heparin 30,000 units/30 ml VIAL ONE (08:52)
[2019-05-07] MEDS ORDERED: PROPOFOL 200 MG/20 ML VIAL ONE (08:52)
[2019-05-07] MEDS ORDERED: ePHEDrine 50 MG/ML VIAL ONE (08:52)
[2019-05-07] MEDS ORDERED: Papaverine 60 MG/2 ML VIAL ONE ×2 (08:52→13:05)
[2019-05-07] MEDS ORDERED: PHENYLEPHRINE-NS 100 MCG/ML 10 ML SYRINGE ONE (08:52)
[2019-05-07] MEDS ORDERED: Vecuronium 10 MG VIAL ONE ×2 (08:52→17:13)
[2019-05-07] MEDS ORDERED: Rocuronium Bromide 10 MG/ML (10ML VIAL) ONE (08:52)
[2019-05-07] MEDS ORDERED: Heparin 10,000 UNITS/1 ML VIAL ONE ×2 (14:36→16:32)
[2019-05-07] MEDS ORDERED: Phenylephrine HCL 10 MG/ML VIAL ONE (14:36)
[2019-05-07] MEDS ORDERED: Heparin 1,000 UNITS/ML VIAL ONE (15:00)
[2019-05-07] MEDS ORDERED: SUGAMMADEX SODIUM 500 MG/5 ML VIAL ONE (15:44)
[2019-05-07] MEDS ORDERED: Calcium Carbonate 500 MG ChewTAB PO PRN (18:22)
[2019-05-07] MEDS ORDERED: Nitroglycerin 0.4 MG TAB (25 Tab Bottle) SL PRN (18:22)
[2019-05-07] MEDS ORDERED: traMADol HCl 50 MG TAB PO PRN (18:23)
[2019-05-07] MEDS ORDERED: Promethazine HCl 25 MG/ML VIAL IM PRN (18:27)
[2019-05-07] MEDS ORDERED: Ondansetron PF 4 MG/2 ML Vial ONE (18:27)
[2019-05-07] MEDS ORDERED: Promethazine HCl 25 MG/ML VIAL SLOW IVP PRN (18:27)
[2019-05-07] MEDS ORDERED: Ondansetron HCl/PF 4 MG/2 ML Vial IVP PRN (18:27)
[2019-05-07] MEDS ORDERED: Haloperidol Lactate 5 MG/ML VIAL ONE (18:39)
[2019-05-07] MEDS: Atorvastatin Calcium 40 MG TAB PO SCH (20:15)
[2019-05-07] MEDS: traMADol HCl 50 MG TAB PO PRN (20:19)
[2019-05-07] MEDS: Fentanyl 100 MCG/2 ML VIAL SLOW IVP PRN ×2 (21:54→23:53)
[2019-05-07] MEDS: Sodium Chloride 0.9% 1,000 ML IV SCH (22:05)
[2019-05-07] MEDS: Metoprolol Tartrate 25 MG TAB PO SCH (22:28)
--- NOTE | 2019-05-08 02:29 | OP ---
DATE OF PROCEDURE: 05/07/2019 PROCEDURES PERFORMED: Left common femoral endarterectomy and profundoplasty with greater saphenous vein patch angioplasty, left common femoral artery to posterior tibial artery bypass with composite bilateral lower extremity lesser saphenous and left lower extremity greater saphenous tributary veins. PREOPERATIVE DIAGNOSIS: Peripheral vascular disease with ischemic rest pain and nonhealing wound. POSTOPERATIVE DIAGNOSIS: Peripheral vascular disease with ischemic rest pain and nonhealing wound. ANESTHESIA: General endotracheal anesthesia. INDICATIONS FOR PROCEDURE: The patient is a 63-year-old woman who has had multiple left lower extremity revascularization procedures, both open and percutaneous. Over the fairly recent past, she [place] and she developed severe claudication and some discoloration in her foot. Overnight the rest pain and discoloration dramatically improved, but she continued to have some near crippling claudication. Arteriography at that time showed an occluded SFA and a small diseased infrageniculate popliteal artery with small but intact tibial runoff to the foot. She had already had saphenous vein harvested for at least one of her procedures, but when she presented for followup, she had progressed to rest pain and marked discoloration of her forefoot and she had a recent injury to that foot where the dog had scratched her foot and there was scant evidence of healing. Venous mapping showed a very short stump of greater saphenous vein at the left ankle, but intact lesser saphenous in both calves. The combined length appeared to be adequate to reach from groin to mid calf and she is now taken to the operating room in an attempt for limb salvage. FINDINGS: While the external caliber of the lesser saphenous all appeared to be adequate and in fact, in some areas appeared to be thin-walled, post revascularization areas were found to be very thick-walled with compromised lumen and although postprocedure, a good Doppler signal could be identified in the graft and in the posterior tibial within the relatively deep wound. In the lower leg, no Doppler signals could be identified in the foot itself transcutaneous. NARRATIVE REPORT: After informed consent was obtained, the patient was taken to the operating room. General endotracheal anesthesia was induced on her gurney. Her endotracheal tube was controlled. Her face in the operating table was appropriately padded and she was turned into the prone position on the operating table. Ultrasonographic mapping of both lesser saphenous veins was undertaken and the legs were marked. Her lower legs were circumferentially prepped and draped. Lesser saphenous was harvested from the popliteal fossa down to just above the heel bilaterally and the veins were prepared for use as grafts. The 2 veins were somewhat small, but appeared to be of adequate size and quality and appeared to be of similar quality. The composite length appeared to be adequate to reach from mid calf to the groin. Those wounds were closed in layers of subcutaneous and subcuticular Vicryl and a Dermabond was applied. The patient was then turned back onto the gurney and then transferred back to the operating table in the supine position and her lower abdomen, groins, and lower extremities were prepped and draped in sterile fashion after mapping the remnant saphenous vein at the ankle. An oblique incision was made about a fingerbreadth below the groin crease on the left side. No scar was identified and upon exposing the common femoral artery, there was no evidence that it had previously been surgically manipulated. There was a fairly large thin-walled tributary to the saphenous system seen at that point. It was followed up proximally and when it was traced back to drainage into the saphenofemoral junction, the greater saphenous proper was identified about 1 handbreadth or so, greater saphenous was still intact and had Prolene suture on it. Distally that appeared to represent either a ligature or some sort of tagging and this was harvested as well. Palpation of the common femoral artery showed a good pulse in it, but there was eccentric plaque palpable within the femoral, particularly distally that seem to be mostly on the posterior aspect of the vessel wall. A longitudinal incision was made on the medial lower legs starting in about the extent of the previous medial scar below the knee. The superficial and then the deep posterior compartments were entered and the posterior tibial artery and vein were identified. The posterior tibial artery was about 1.5 to 2 mm in size and soft, but was somewhat spastic upon manipulation though isolated. A counter incision was made about a handbreadth above the knee to allow for creation of a subcutaneous tunnel fairly directly from the lower leg wound to the groin wound rather than the traditional path of the greater saphenous to minimize the length of vein that would be necessary. This corresponded with roughly the length of the lesser saphenous vein so that the vein to vein anastomosis could be constructed readily under direct vision within that wound. The lesser saphenous was reversed and anastomosed to an arteriotomy made between vascular clamps in the posterior tibial with 7-0 Prolene suture. Saline easily flushed through it. It was oriented and passed up to the counter incision in the distal thigh and a vascular clamp was used to maintain orientation. Papaverine solution was applied topically to the posterior tibial in that wound. The other lesser saphenous was reversed and the 2 were obliquely divided and spatulated to make an oblique end-to-end anastomosis with 7-0 Prolene suture. Multiple repairs were necessary as the most proximal end of the reversed lesser saphenous that had been anastomosed to the posterior tibial artery was quite thin-walled at that point. The composite graft was oriented and passed up to the groin incision, held in place with a vascular clamp. Proximal and distal control was then established on the distal external iliac artery and on the femoral bifurcation. A longitudinal arteriotomy was made in the common femoral and extended proximally and distally. The distal extent was taken down onto the origin of the profunda and endarterectomy plane was developed at the distal common femoral. Plaque was easily transected proximally and broke off in the origin of the profunda with a clean feather. The short-segment of greater saphenous from the groin wound was bivalved and used to close that endarterectomized vessel with an onlay patch. It was distended by releasing the vascular clamp briefly and a longitudinal venotomy was made in that patch and the composites lesser saphenous was anastomosed there with running Prolene. The vein to vein anastomosis in the thigh appeared problematic, although there was a good Doppler signal throughout the vein in the posterior tibial, there appeared to be a palpable change in the strength of that pulse across the anastomosis. The vessels were re-clamped and divided freshening up the ends and re-doing the oblique anastomosis with an improvement in the quality of the pulse. Protamine was administered and the wounds were closed in layers of subcutaneous and subcuticular Vicryl. Even prior to closure with a good Doppler signal in the posterior tibial within the wound, no posterior tibial could be found even immediately below that wound transcutaneously nor in the foot. The dorsalis pedis was not found either, although the veins filled in when stripped fairly quickly when examining the foot. Doppler signal could be identified in the graft just above the knee. Upon closure of the wounds, another exam was undertaken and the pulse could not be found at the knee. Attempts at visualizing it with ultrasound showed some pulsatility to the vessel to the graft proximally, but not distally. The wounds were reopened starting distally and the pulse in the graft was quite weak and the signal was quite weak. All the wounds were reopened in order to sequentially examine the whole length of the vein. Very proximally, there was a palpable pulse in the graft. There was one area found when following the vein down its tunnel from the groin that appeared somewhat narrower. An incision was made in the skin over that to better visualize it. The patient was re-heparinized and the tributary to the greater saphenous system in the groin wound was harvested and used as an interposition graft to replace that segment. When the vein was transected, the lumen at that point appeared to be small and spatulation was extended several centimeters proximally until good inflow was reestablished. But even at that, the vein wall was very thick at that point. Likewise, the graft distally was spatulated to get back to where there was better caliber. There was noticeable improvement in the Doppler signal throughout the graft and in the posterior tibial within the wound, but still no Doppler signal could be identified in the foot transcutaneously. The veins refilled fairly quickly when stripped and slowly the foot seemed to be improving in color, feeling that there really was no more that could be done. At this point, the wound was inspected for hemostasis, which appeared grossly adequate without reversal of the heparin and the wounds were reclosed in layers of subcutaneous Vicryl and skin luz. They were dressed. The patient was awakened and extubated in the operating room and taken to the recovery area in stable condition. Job ID: [id number]
[2019-05-08] MEDS: Fentanyl 100 MCG/2 ML VIAL SLOW IVP PRN ×9 (02:58→21:02)
[2019-05-08] MEDS: Sodium Chloride 0.9% 1,000 ML IV SCH ×2 (03:13→14:08)
[2019-05-08 03:44] LABS: #Lymphocytes 0.9 thou/uL (1.20-3.40); #Monocytes 0.6 thou/uL (0.11-0.59); #Neutrophils 8.8 thou/uL (1.40-6.50); %Basophils 0.1 % (0.0-1.0); %Eosinophils 0.1 % (0.0-10.0); %Lymphocytes 8.3 % (21.0-51.0); %Monocytes 5.6 % (0.0-10.0); %Neutrophils 85.8 % (42.0-75.0); Hemoglobin 10.7 g/dL (12.0-16.0); Mean Corpuscular HGB CONC 33.9 g/dL (32.0-36.0); Mean Corpuscular Hemoglobin 30.2 pg (27.0-31.0); Mean Corpuscular Volume 89.1 fL (78.0-98.0); Mean Platelet Volume 7.2 fL (7.4-10.4); Platelet Count 138 thou/uL (130-400); RBC Distribution Width 12.6 % (11.5-14.5); Red Blood Cell (RBC) Count 3.53 mill/uL (4.20-5.40); White Blood Cell (WBC) Count 10.3 thou/uL (4.8-10.8)
[2019-05-08 04:06] LABS: Anion Gap 10 mmol/L (10-20); BUN (Urea Nitrogen) 6 mg/dL (9.8-20.1); Calc. Creatinine Clearance 169 mL/min (70-130); Calcium 9.4 mg/dL (7.8-10.44); Carbon Dioxide 23 mmol/L (23-31); Chloride 110 mmol/L (98-107); Estimated GFR-MDRD Greater than 90; Glucose 117 mg/dL (80-115); Potassium 3.9 mmol/L (3.5-5.1); Sodium 139 mmol/L (136-145)
[2019-05-08] MEDS: Metoprolol Tartrate 25 MG TAB PO SCH ×2 (08:06→23:32)
[2019-05-08] MEDS: Aspirin 81 mg Enteric Coated Tablet PO SCH (08:06)
[2019-05-08] MEDS: Clopidogrel Bisulfate 75 MG TAB PO SCH (08:06)
[2019-05-08] MEDS ORDERED: Aspirin Chewable 81 MG TAB PO SCH (09:00)
[2019-05-08] MEDS: traMADol HCl 50 MG TAB PO PRN (14:02)
--- NOTE | 2019-05-08 15:16 | CON ---
DATE OF CONSULTATION: 05/08/2019 REASON FOR CONSULTATION: The patient is status post left common femoral endarterectomy and profundoplasty with greater saphenous vein patch angioplasty in ICU for recovery. HISTORY OF PRESENT ILLNESS: This is a 63-year-old female, who presents to the ICU after having a scheduled elective left common femoral endarterectomy and profundoplasty with greater saphenous vein patch angioplasty. This is patient's fifth revascularization surgery for peripheral vascular disease. The patient's other significant past medical history includes hypertension, coronary artery disease, status post stent placement. The patient is doing well, status post surgical intervention. REVIEW OF SYSTEMS: A 12-point review of systems is performed and are negative except as indicated in HPI are listed below. The patient denies any chest pain or shortness of breath. She does endorse left lower extremity pain, which is tolerable on current medications. The patient denies any significant lower extremity swelling. PAST MEDICAL HISTORY: 1. Peripheral vascular disease. 2. Status post left common femoral endarterectomy and profundoplasty with greater saphenous vein patch angioplasty. 3. Hypertension. 4. Coronary artery disease, status post stent placement. PAST SURGICAL HISTORY: 1. Coronary stent placement. 2. Femoral-popliteal surgical intervention x5. FAMILY HISTORY: Noncontributory per the patient. SOCIAL HISTORY: The patient states she quit smoking in August. She denies history of alcohol or drug use. ALLERGIES: 1. CODEINE. 2. HYDROCODONE. 3. MEPERIDINE. 4. MORPHINE. 5. PROPOXYPHENE. PHYSICAL EXAMINATION: VITAL SIGNS: Blood pressure 113/64, respiratory rate 17, oxygen saturation 93% on room air, heart rate 82, temp 98 degrees Fahrenheit. GENERAL: The patient is alert and oriented x3, in no acute distress. HEENT: Pupils are equally round and reactive to light. CARDIO: Regular rate and rhythm. No appreciable murmurs. RESPIRATORY: No acute respiratory distress. Clear to auscultation bilaterally. EXTREMITIES: Left lower extremity with recent postoperative changes to include sutures along the medial aspect of the left lower extremity. The patient's dorsalis pedis and posterior tibial pulses not palpable on the left. NEURO: GCS 15. No focal deficits. LABORATORY DATA: CBC reveals white blood cell count 10.3, hemoglobin 10.7, hematocrit 31.5, platelets 138. BMP reveals sodium 139, potassium 3.9, chloride 110, bicarb 23, BUN 6, creatinine 0.62, glucose 117, calcium 9.4. ASSESSMENT: 1. Peripheral vascular disease, status post left common femoral endarterectomy and profundoplasty with greater saphenous vein patch angioplasty. 2. Hypertension. 3. Coronary artery disease, status post stent placement. PLAN: The patient is stable from a respiratory standpoint. She does not have palpable pulses in the left lower extremity. Uncertain whether or not she will be taken back for an additional procedure. We will continue to follow while the patient is in the ICU. Dr. Olson was present for the consultation. He is agreeable with the stated plan. Thank you for the consultation. 70 minutes have been devoted to this patient in various activities. I personally reviewed all imaging studies and laboratory data noted within this document. For fifty percent of this time, I was interacting with the patient at the bedside or coordinating care with the care team. For the remainder of the time I was immediately available to the patient in the hospital unit. Job ID: [id number] [facility]
[2019-05-08] MEDS: Atorvastatin Calcium 40 MG TAB PO SCH (20:56)
[2019-05-08] MEDS: HYDROmorphone 2 MG TAB PO PRN (23:58)
[2019-05-09] MEDS: Fentanyl 100 MCG/2 ML VIAL SLOW IVP PRN ×8 (03:54→23:54)
[2019-05-09] MEDS: Metoprolol Tartrate 25 MG TAB PO SCH ×2 (07:37→20:41)
[2019-05-09] MEDS: Aspirin 81 mg Enteric Coated Tablet PO SCH (07:37)
[2019-05-09] MEDS: Clopidogrel Bisulfate 75 MG TAB PO SCH (07:37)
[2019-05-09] MEDS: HYDROmorphone 2 MG TAB PO PRN ×3 (08:28→20:42)
--- NOTE | 2019-05-09 08:37 | OP ---
DATE OF PROCEDURE: 05/07/2019 ADDENDUM: PROCEDURES PERFORMED: Left common femoral endarterectomy and profundoplasty with greater saphenous vein patch angioplasty, left common femoral artery to posterior tibial artery bypass, Composite bilateral lower extremity lesser saphenous and left lower extremity graders, saphenous tributary veins. NARRATIVE REPORT: During the graft revision in which a tributary to the greater saphenous vein was harvested and used as an interposition graft to replace a segment of lesser saphenous with a small lumen. The Composite lesser saphenous graft was evaluated for thrombus. None was found upon passing a #3 Arsenio catheter proximally through the anastomosis and withdrawing it and none was found when passing the Arsenio distally. The Arsenio passed at roughly 70 cm from the point of the graft transection in the proximal thigh well beyond the anastomosis into the foot. The Arsenio could be appreciated when it was withdrawn into the exposed posterior tibial in the wound through the anastomosis and into the vein graft. No thrombus was extracted. Job ID: [id number]
--- NOTE | 2019-05-09 13:46 | PRG ---
DATE OF SERVICE: 05/09/2019 SERVICE: Pulmonary Medicine. INTERVAL HISTORY: The patient is doing really well from respiratory standpoint. That being said, she had to sleep in a chair yesterday. The reason for that is whenever she got into bed, she had a horrendous left foot discomfort. She has been basically upright for the last 24 hours. She did not get much sleep. She denies any cough, sputum production, or fevers. Her left foot is exquisitely tender. PHYSICAL EXAMINATION: VITAL SIGNS: Afebrile, pulse 83, blood pressure 108/64, respirations 20, and saturations 95% on room air. GENERAL: The patient is awake and alert, in no apparent distress. LUNGS: Decent air entry. There is slight prolongation of expiratory phase, but no wheezing. HEART: Normal rate, regular. ABDOMEN: Soft, nontender, nondistended. Bowel sounds are positive. MUSCULOSKELETAL: No cyanosis or clubbing. There is 2+ pitting in the left lower extremity, and 1+ pitting in the right lower extremity. Pulses are absent in the left foot. NEUROLOGIC: Nonfocal. ASSESSMENT: 1. Peripheral vascular disease, quite severe. 2. Hypertension. DISCUSSION AND PLAN: The patient is being transitioned to the floor. Pulmonary/Critical Care will continue to follow, intermittently during this hospital stay. The patient will be declaring herself over the next couple of weeks as to whether or not she will be able to re-establish blood flow to the foot. At this point, if she has increasing signs of sepsis, panculture and empiric antibiotics for skin janene would be initiated. Job ID: [id number] [facility]
[2019-05-09] MEDS: Atorvastatin Calcium 40 MG TAB PO SCH (20:42)
[2019-05-10] MEDS: Fentanyl 100 MCG/2 ML VIAL SLOW IVP PRN ×5 (03:05→18:58)
[2019-05-10] MEDS: HYDROmorphone 2 MG TAB PO PRN ×4 (05:05→22:43)
[2019-05-10] MEDS: Clopidogrel Bisulfate 75 MG TAB PO SCH (08:06)
[2019-05-10] MEDS: Metoprolol Tartrate 25 MG TAB PO SCH ×2 (08:06→20:11)
[2019-05-10] MEDS: Aspirin 81 mg Enteric Coated Tablet PO SCH (08:06)
[2019-05-10] MEDS ORDERED: Zolpidem Tartrate 5 MG TAB PO PRN (13:00)
[2019-05-10] MEDS: Atorvastatin Calcium 40 MG TAB PO SCH (20:10)
[2019-05-11] MEDS: Fentanyl 100 MCG/2 ML VIAL SLOW IVP PRN ×3 (00:18→19:09)
[2019-05-11] MEDS: HYDROmorphone 2 MG TAB PO PRN ×4 (03:39→21:11)
[2019-05-11] MEDS: Aspirin 81 mg Enteric Coated Tablet PO SCH (08:56)
[2019-05-11] MEDS: Clopidogrel Bisulfate 75 MG TAB PO SCH (08:56)
[2019-05-11] MEDS: Acetaminophen 325 MG TAB PO PRN ×2 (08:56→17:07)
[2019-05-11] MEDS: Metoprolol Tartrate 25 MG TAB PO SCH ×2 (08:56→21:08)
[2019-05-11] MEDS: Atorvastatin Calcium 40 MG TAB PO SCH (21:07)
[2019-05-12] MEDS: Fentanyl 100 MCG/2 ML VIAL SLOW IVP PRN ×2 (03:19→15:03)
[2019-05-12] MEDS: Acetaminophen 325 MG TAB PO PRN ×2 (03:24→08:56)
[2019-05-12] MEDS: HYDROmorphone 2 MG TAB PO PRN ×2 (06:56→21:11)
[2019-05-12] MEDS: Clopidogrel Bisulfate 75 MG TAB PO SCH (08:57)
[2019-05-12] MEDS: Aspirin 81 mg Enteric Coated Tablet PO SCH (08:57)
--- NOTE | 2019-05-12 09:42 | RAD ---
RADIOGRAPH CHEST 2 VIEWS: HISTORY: 63-year-old female with dyspnea and tachycardia. FINDINGS: There is no air space density, pulmonary edema, pleural effusion, pneumothorax, or cardiomegaly. IMPRESSION: No acute cardiopulmonary findings. jn [] POS: [facility]
[2019-05-12] MEDS: Metoprolol Tartrate 25 MG TAB PO SCH ×2 (09:43→21:08)
[2019-05-12 20:22] LABS: Anion Gap 14 mmol/L (10-20); BUN (Urea Nitrogen) 12 mg/dL (9.8-20.1); Calc. Creatinine Clearance 154 mL/min (70-130); Calcium 9.8 mg/dL (7.8-10.44); Carbon Dioxide 26 mmol/L (23-31); Chloride 100 mmol/L (98-107); Estimated GFR-MDRD 87; Glucose 96 mg/dL (80-115); Potassium 3.3 mmol/L (3.5-5.1); Sodium 137 mmol/L (136-145)
[2019-05-12] MEDS: Atorvastatin Calcium 40 MG TAB PO SCH (21:07)
[2019-05-12] MEDS: Zolpidem Tartrate 5 MG TAB PO PRN (21:15)
[2019-05-13] MEDS: HYDROmorphone 2 MG TAB PO PRN ×4 (02:45→20:18)
[2019-05-13 04:41] LABS: #Eosinphils 0.1 thou/uL (0.0-0.7); #Lymphocytes 1.1 thou/uL (1.20-3.40); #Monocytes 0.8 thou/uL (0.11-0.59); #Neutrophils 6.8 thou/uL (1.40-6.50); %Basophils 0.1 % (0.0-1.0); %Eosinophils 1.3 % (0.0-10.0); %Lymphocytes 12.6 % (21.0-51.0); %Monocytes 9.2 % (0.0-10.0); %Neutrophils 76.8 % (42.0-75.0); Hemoglobin 9.2 g/dL (12.0-16.0); Mean Corpuscular HGB CONC 33.6 g/dL (32.0-36.0); Mean Corpuscular Volume 89.4 fL (78.0-98.0); Mean Platelet Volume 8.1 fL (7.4-10.4); Platelet Count 159 thou/uL (130-400); RBC Distribution Width 12.5 % (11.5-14.5); Red Blood Cell (RBC) Count 3.05 mill/uL (4.20-5.40); White Blood Cell (WBC) Count 8.9 thou/uL (4.8-10.8)
[2019-05-13] MEDS ORDERED: Piperacillin/Tazobactam 3.375 GM in Sodium Chloride 0.9% 100 ML IVPB SCH (06:00)
[2019-05-13] MEDS: Clopidogrel Bisulfate 75 MG TAB PO SCH (08:21)
[2019-05-13] MEDS: Aspirin 81 mg Enteric Coated Tablet PO SCH (08:21)
[2019-05-13] MEDS: Metoprolol Tartrate 25 MG TAB PO SCH ×2 (08:25→20:17)
[2019-05-13] MEDS: Fentanyl 100 MCG/2 ML VIAL SLOW IVP PRN ×2 (11:31→18:25)
--- NOTE | 2019-05-13 14:44 | PRG ---
DATE OF SERVICE: 05/13/2019 SERVICE: Pulmonary Medicine. INTERVAL HISTORY: The patient started to have some fevers overnight. Since she has been out of the ICU, she started coughing up a little bit of purulent sputum. She denies having any shortness of breath, nausea, or vomiting. She is not having any frequency, dysuria, or urgency. She does not have any hot, red, swollen joints other than the left lower extremity. She has exquisite tenderness to palpation of the left foot, but this has not changed since she has been here. Blood cultures were performed. Gram-negative rods are growing out of the urine. She also has gram-negative rods growing in 2/2 blood cultures. Presumptively, we are dealing with a pseudomonal infection. Sputum culture was also performed and was unremarkable. She was empirically initiated on Zosyn, which should be more than adequate to cover the causative organism. PHYSICAL EXAMINATION: VITAL SIGNS: Afebrile. Pulse 86, blood pressure 124/74, respirations 13, saturation 97% on room air. GENERAL: The patient is awake and alert, in no apparent distress. LUNGS: Very good air entry. There is no prolonged expiratory phase. Rhonchi are present, but clear with cough. No wheezing or crackles are appreciated. HEART: Normal rate and regular. ABDOMEN: Soft, nontender, nondistended. Bowel sounds are positive. MUSCULOSKELETAL: No cyanosis or clubbing. There is 1+ pitting in the left lower extremity. The bottom of her left foot is purple, and has some ischemic changes on the toes. Incisions are clean and dry. There is a little bit of erythema extending from the margins of the surgical site. Additionally, there is some purple discoloration in the inferior margin of the lower leg incision. : No Glover. LABORATORY DATA: WBC 8.9, hemoglobin 9.2 and downtrending, platelets 159,000. Neutrophil count is 77%. Lymphocyte count seems to be improving. Basic metabolic profile is otherwise unremarkable, except for potassium of 3.3. Respiratory culture is negative to date. Urine culture, blood culture x2 are all growing gram- negative rods. There are many white blood cells seen in the Gram stain. There is gram-positive cocci in chains and clusters, as well as some gram-variable rods, gram-negative rods, and gram-negative coccobacillus. IMAGING: Chest x-ray demonstrates no acute cardiopulmonary abnormality. There is a little subtle interstitial fullness throughout bilateral lung herndon. Minimal cephalization is noted. ASSESSMENT: 1. Sepsis without end-organ damage. 2. Bacteremia secondary to gram-negative joe. 3. Urinary tract infection secondary to gram-negative joe. 4. Peripheral vascular disease, quite severe. 5. Hypertension. DISCUSSION AND PLAN: I agree with the Zosyn. I am going to double cover for possible Pseudomonas with fluoroquinolone. Once we have final identification, and sensitivities, we can back off to one agent. She will require a minimum of 2 weeks of antibiotics. I will repeat blood cultures in the morning to make certain she is clearing the causative lesion. It looks like this was a urine-associated illness. Hopefully, she will defervesce very comfortably. It is my understanding that she is going back down to the operating room tomorrow to see if we can improve blood flow to that left foot. The patient already understands that if these multiple vascular interventions are unsuccessful, we may be looking at an amputation. Hopefully; however, it does not come to that. I am grateful that the patient is completely realistic. Job ID: [id number] [facility]
[2019-05-13] MEDS: Ondansetron PF 4 MG/2 ML Vial IVP PRN (17:07)
[2019-05-13] MEDS: Piperacillin/Tazobactam 3.375 GM in Sodium Chloride 0.9% 100 ML IVPB SCH ×2 (17:44→21:19)
[2019-05-13] MEDS: Melatonin 3 MG TAB PO SCH (20:16)
[2019-05-13] MEDS: Atorvastatin Calcium 40 MG TAB PO SCH (20:17)
[2019-05-13] MEDS: traZODone HCl 50 MG TAB PO SCH (20:17)
[2019-05-14] MEDS: Ondansetron PF 4 MG/2 ML Vial IVP PRN (03:07)
[2019-05-14] MEDS: HYDROmorphone 2 MG TAB PO PRN (03:08)
[2019-05-14] MEDS: Piperacillin/Tazobactam 3.375 GM in Sodium Chloride 0.9% 100 ML IVPB SCH ×3 (03:09→16:31)
[2019-05-14] MEDS: Acetaminophen 325 MG TAB PO PRN (03:32)
[2019-05-14 05:23] LABS: Band 15 % (5-11); Hemoglobin 9.5 g/dL (12.0-16.0); Hypochromia SLIGHT = 6-15 cells (100X) (0-5/hpf); Lymphocytes 3 % (21-51); MDiff Complete? YES; Mean Corpuscular HGB CONC 34.1 g/dL (32.0-36.0); Mean Corpuscular Hemoglobin 30.3 pg (27.0-31.0); Mean Corpuscular Volume 88.9 fL (78.0-98.0); Mean Platelet Volume 8.3 fL (7.4-10.4); Monocytes 1 % (0-10); Neutrophil 81 % (42-75); Platelet Count 150 thou/uL (130-400); Platelet Morphology Comment Appears Adequate; RBC Distribution Width 12.6 % (11.5-14.5); Red Blood Cell (RBC) Count 3.14 mill/uL (4.20-5.40); White Blood Cell (WBC) Count 7.9 thou/uL (4.8-10.8)
[2019-05-14 05:30] LABS: Anion Gap 16 mmol/L (10-20); BUN (Urea Nitrogen) 10 mg/dL (9.8-20.1); Calc. Creatinine Clearance 139 mL/min (70-130); Calcium 9.7 mg/dL (7.8-10.44); Carbon Dioxide 21 mmol/L (23-31); Chloride 100 mmol/L (98-107); Estimated GFR-MDRD 78; Glucose 116 mg/dL (80-115); Magnesium 1.2 mg/dL (1.6-2.6); Potassium 3.5 mmol/L (3.5-5.1); Sodium 133 mmol/L (136-145)
[2019-05-14 05:37] LABS: Phosphorus 1.9 mg/dL (2.3-4.7)
[2019-05-14] MEDS ORDERED: Midazolam HCl 2 mg/2 ml Vial ONE ×2 (06:31→10:40)
[2019-05-14] MEDS ORDERED: Fentanyl 100 MCG/2 ML VIAL ONE (06:31)
[2019-05-14] MEDS ORDERED: Protamine Sulfate 50 MG/5 ML VIAL ONE (06:36)
[2019-05-14] MEDS ORDERED: Heparin 5,000 UNITS/ML VIAL ONE (06:36)
[2019-05-14] MEDS: Aspirin 81 mg Enteric Coated Tablet PO SCH (09:19)
[2019-05-14] MEDS: Metoprolol Tartrate 25 MG TAB PO SCH ×2 (09:19→20:08)
[2019-05-14] MEDS: Clopidogrel Bisulfate 75 MG TAB PO SCH (09:23)
[2019-05-14] MEDS ORDERED: Midazolam HCl 5 mg/5 ml Vial ONE (10:40)
[2019-05-14] MEDS ORDERED: Insulin Regular 300 UNITS/3 ML VIAL ONE (11:03)
[2019-05-14] MEDS ORDERED: Magnesium Sulfate 4 GM in Sodium Chloride 0.9% 250 ML 250 ML IVPB SCH (12:15)
[2019-05-14] MEDS ORDERED: Potassium Phosphate 30 MMOL in Sodium Chloride 0.9% 500 ML IVPB SCH (12:15)
--- NOTE | 2019-05-14 12:39 | PRG ---
DATE OF SERVICE: 05/14/2019 SERVICE: Pulmonary Medicine. INTERVAL HISTORY: The patient is doing okay from a Respiratory standpoint. She spiked a fever last night, but did not go as high as prior. She denies any current fevers, chills, shortness of breath, or cough. Otherwise, she is improving ever so slightly. She is going back down to the operating room today for reexploration and to see if we can improve blood flow further. PHYSICAL EXAMINATION: VITAL SIGNS: Afebrile, currently with a T-max of 100.5, pulse 79, blood pressure 93/58, respirations 18, and saturation 96% on room air. GENERAL: The patient is awake, alert, in no apparent distress. LUNGS: Decent air entry. There is no prolonged expiratory phase. I do not appreciate any wheezing. Rhonchi are minimally clear with cough. HEART: Normal rate and regular. ABDOMEN: Soft, nontender, nondistended. Bowel sounds are positive. MUSCULOSKELETAL: No clubbing. There is cyanosis of the left foot, particular at the base with white toes. She has absent pulses in the left lower extremity. There is 1+ pitting in the left lower extremity, trace pitting in the right lower extremity. NEUROLOGIC: Grossly nonfocal. LABORATORY DATA: WBC 7.9, hemoglobin 9.5, platelets 150,000, and band count is 15% on top of 81% neutrophils. Sodium 133, bicarb 21, anion gap 16 and increasing, magnesium 1.2, and phosphorus 1.9. Urine culture is growing Enterobacter cloacae complex, which is a pansensitive organism. Blood culture on the other hand is growing 2/2 Pseudomonas species. Respiratory cultures are negative. ASSESSMENT: 1. Sepsis without end-organ damage. 2. Bacteremia secondary to Pseudomonas. 3. Urinary tract infection, secondary to Enterobacter. 4. Peripheral vascular disease, quite severe, status post multiple operations. 5. Hypertension. DISCUSSION AND PLAN: I will continue double coverage for the Pseudomonas. Final sensitivities will direct our ultimate therapy. It appears that the urine is not the source. It is increasingly likely that our issue is the left lower extremity. Dr. Lovell is going to be consulted to help us consider our options including hyperbarics. Pulmonary will continue to follow along as she will likely end up back in the ICU once again. Job ID: [id number] [facility]
[2019-05-14] MEDS ORDERED: Rocuronium Bromide 50 MG/5 ML VIAL ONE (13:22)
[2019-05-14 14:22] LABS: Hemoglobin 8.8 g/dL (12.0-16.0); Mean Corpuscular HGB CONC 34.7 g/dL (32.0-36.0); Mean Corpuscular Hemoglobin 29.9 pg (27.0-31.0); Mean Corpuscular Volume 86.3 fL (78.0-98.0); Mean Platelet Volume 8.6 fL (7.4-10.4); Platelet Count 115 thou/uL (130-400); Red Blood Cell (RBC) Count 2.92 mill/uL (4.20-5.40)
[2019-05-14 14:53] LABS: Band 21 % (5-11); Lymphocytes 2 % (21-51); MDiff Complete? YES; Metamyelocyte 1 % (0-0); Monocytes 1 % (0-10); Neutrophil 75 % (42-75); Platelet Morphology Comment Appears Decreased; Polychromasia SLIGHT = 2-3 cells (100X) (0-2/hpf)
[2019-05-14] MEDS ORDERED: Ondansetron PF 4 MG/2 ML Vial IVP PRN (15:53)
[2019-05-14] MEDS ORDERED: Insulin Regular 300 UNITS/3 ML VIAL SC PRN (15:53)
[2019-05-14] MEDS ORDERED: Dextrose 5% in Water 1,000 ML IV PRN (15:58)
[2019-05-14] MEDS ORDERED: Dextrose 50% Abboject 50 ML SYRINGE IVP PRN (15:58)
[2019-05-14 16:11] LABS: #Lymphocytes 0.9 thou/uL (1.20-3.40); #Monocytes 1.3 thou/uL (0.11-0.59); #Neutrophils 9.7 thou/uL (1.40-6.50); %Basophils 0.1 % (0.0-1.0); %Eosinophils 0.2 % (0.0-10.0); %Lymphocytes 7.1 % (21.0-51.0); %Neutrophils 81.6 % (42.0-75.0); Hemoglobin 9.9 g/dL (12.0-16.0); Mean Corpuscular HGB CONC 33.9 g/dL (32.0-36.0); Mean Corpuscular Hemoglobin 29.9 pg (27.0-31.0); Mean Corpuscular Volume 88.4 fL (78.0-98.0); Mean Platelet Volume 7.9 fL (7.4-10.4); Platelet Count 108 thou/uL (130-400); RBC Distribution Width 14.9 % (11.5-14.5); Red Blood Cell (RBC) Count 3.31 mill/uL (4.20-5.40); White Blood Cell (WBC) Count 11.8 thou/uL (4.8-10.8)
[2019-05-14 16:15] LABS: INR-International Normal Ratio 1.4; Prothrombin Time 16.9 SEC (12.0-14.7)
[2019-05-14 16:16] LABS: PTT 38.7 SEC (22.9-36.1)
[2019-05-14] MEDS ORDERED: Glycopyrrolate 0.2 MG/ML 5 ML SYRINGE ONE (16:22)
[2019-05-14] MEDS ORDERED: PHENYLEPHRINE-NS 100 MCG/ML 10 ML SYRINGE ONE (16:22)
[2019-05-14] MEDS ORDERED: Rocuronium Bromide 10 MG/ML (10ML VIAL) ONE (16:22)
[2019-05-14] MEDS ORDERED: ePHEDrine 50 MG/ML VIAL ONE (16:22)
[2019-05-14] MEDS ORDERED: Heparin 30,000 units/30 ml VIAL ONE (16:22)
[2019-05-14] MEDS ORDERED: Dextrose 50% Abboject 50 ML SYRINGE ONE (16:22)
[2019-05-14] MEDS: Sodium Chloride 0.9% 1,000 ML IV SCH (16:32)
--- NOTE | 2019-05-14 16:32 | RAD ---
PORTABLE CHEST: 05/14/19 INDICATION: Assess central line placement. Central line has been placed through the left subclavian. The tip overlying the upper SVC appears in adequate position. Lung herndon are clear of infiltrate. No pneumothorax. Heart size is mildly prominent. Mild vascular e ngorgement. IMPRESSION: Central line appears adequately positioned. No acute lung process. POS: OFF
[2019-05-14 16:48] LABS: Anion Gap 11 mmol/L (10-20); BUN (Urea Nitrogen) 11 mg/dL (9.8-20.1); Calc. Creatinine Clearance 144 mL/min (70-130); Carbon Dioxide 24 mmol/L (23-31); Chloride 106 mmol/L (98-107); Estimated GFR-MDRD 80; Glucose 93 mg/dL (80-115); Potassium 3.4 mmol/L (3.5-5.1); Sodium 138 mmol/L (136-145)
--- NOTE | 2019-05-14 17:37 | OP ---
DATE OF PROCEDURE: 05/14/2019 PROCEDURES PERFORMED: Emergent left groin exploration with control of anastomotic bleeding, redo left common femoral artery to posterior tibial artery bypass with reversed cadaveric saphenous vein graft, and posterior tibial artery thrombectomy. PREOPERATIVE DIAGNOSES: Failed, positive lesser saphenous and greater saphenous tributary, left common femoral to posterior tibial artery bypass with acute bleeding. POSTOPERATIVE DIAGNOSES: Failed, positive lesser saphenous and greater saphenous tributary, left common femoral to posterior tibial artery bypass with acute bleeding, and acute proximal anastomotic bleeding. ANESTHESIA: General endotracheal anesthesia. INDICATIONS: The patient is a 63-year-old woman, who has undergone several previous open and percutaneous attempts at left lower extremity revascularization, who had fairly crippling claudication following failure of the last procedure that progressed to rest pain and a nonhealing wound. Shortly thereafter, when she had trivial trauma to her left foot, arteriography demonstrated occlusion over the superficial femoral and popliteal arteries with small, but intact trifurcation vessels. Ultrasonography suggested adequate length of in size of the lesser saphenous and residual greater saphenous of the ankle to attempt revascularization with a composite technique. That procedure never worked very well because of poor quality of conduit and after discussing options with her, she opted to attempt limb salvage with cadaveric vein. Arrangements were made to have that available and while in the holding area for her second procedure, she went to the bathroom and began bleeding profusely from her left groin. Direct pressure was held and she was transported emergently to the operating room, where she was resuscitated while pressure was held and I was summoned emergently to the operating room. FINDINGS: Dehiscence of the anastomosis at the heel a little bit lateral to the heel, where the lesser saphenous was sewn into the greater saphenous vein patch of the endarterectomized common femoral proximally. The graft was thrombosed and there was some thrombus extending into the posterior tibial artery. Postoperatively, there was a good Doppler and palpable pulse in the graft and the posterior tibial within the wound, but it is difficult to Doppler posterior tibial pulse in the foot or the pulse in the graft in the thigh transcutaneously. NARRATIVE REPORT: The patient was emergently transported to the operating room and a large-bore internal jugular line was placed after intubating the patient. OR personnel held pressure in the right groin while the thigh and pannus were prepped and draped. I exchanged places with the OR personnel holding pressure and removed the skin luz and cut the subcutaneous suture on either side, where I was holding pressure, then released pressure and removed the remaining luz in suture to allow for direct pressure on the femoral artery within the wound. Retractors were put into place to allow for exposure. Yankauer sucker was used to evacuate blood and bluntly dissect out the femoral artery on either side, where it could be seen to be bleeding at the suture line near the heel, where the lesser saphenous graft was anastomosed to the endarterectomized common femoral artery. A 6-0 Prolene suture was used to oversew that bleeding area achieving hemostasis. The wound was then closed at the skin level with luz and the drapes were removed, then a circumferential prep of the left lower extremity was undertaken and more formal draping performed. The luz and subcutaneous suture from all of the wounds were removed. The graft could be seen to be thrombosed and there was some purplish discoloration of the posterior tibial, distal to the graft anastomosis. Posterior tibial was dissected out distally to that to allow for any extension of the anastomosis that might prove necessary and the cadaveric vein was thawed, rinsed, and flushed. The patient was heparinized. The posterior tibial was clamped proximally and distally from the anastomosis and the posterior tibial anastomosis was taken down with an 11 blade scalpel. A #3 Arsenio catheter was sequentially and incrementally passed down the posterior tibial well into the foot. Extracting thrombus from the posterior tibial, it was then passed proximally. No thrombus was extracted proximally. Low-pressure inflow bleeding was achieved, but even after irrigating the posterior tibial distally with heparinized saline, no backbleeding was re-established. The arteriotomy was extended slightly proximally and distally, so that the heel and toe would be placed on freshly incised tissue. The cadaveric vein was examined and then spatulated distally and anastomosed end-to-side to the posterior tibial. Heparinized saline easily flushed through it. It was distended and marked and then taking care to maintain orientation. Past deep to the skin bridges up to the groin when maintaining orientation. It was clamped with a vascular clamp and then proximal and distal control was established on the femoral artery. The anastomosis of the lesser saphenous graft to the vein patch on the endarterectomized common femoral was taken down. There was a small amount of adherent thrombus laminated within the wound. A Arsenio catheter was passed down the SFA. No thrombus was extracted. There was good backbleeding from the profunda and no thrombus extracted from it. There was no residual thrombus within the arteriotomy and a good pulse in the femoral artery proximal to the clamp. The cadaveric vein graft was trimmed to length and beveled, and anastomosed to the freshened vein patch on the common femoral with running 7-0 Prolene. The vessels were forward and back bled and the suture line secured and the vascular controls were released, although there was an excellent pulse both palpably in the graft and in the posterior tibial artery within the wound distal to the anastomosis. Attempts at identifying Doppler flow either in the graft or in the posterior tibial at the foot transcutaneously required frustrating after getting an ultrasound probe, 2 different Doppler probes, and 2 different Doppler boxes. Finally, a signal could be found in the posterior tibial in the foot. Protamine was administered at the beginning of the case while the graft was following. The wounds were swabbed for culture and then irrigated. When hemostasis was adequate, the wounds were closed with subcutaneous Vicryl and skin luz on the calf incision, where the anastomosis had been performed. A knife was used to sharply debride in the area of skin that was beginning to necrose prior to the stapling. The wounds were dressed. The patient was awakened and extubated in the operating room and taken to the intensive care unit in stable condition, where she had 1 to 1.5 second capillary refill in the forefoot and dopplerable pulse in the posterior tibial. Job ID: [id number]
[2019-05-14] MEDS: Fentanyl 100 MCG/2 ML VIAL SLOW IVP PRN ×3 (17:41→22:31)
--- NOTE | 2019-05-14 19:09 | CON ---
DATE OF CONSULTATION: 05/14/2019 REASON FOR CONSULTATION: Bacteremia. HISTORY OF PRESENT ILLNESS: A 63-year-old patient, who has a history of coronary artery disease, peripheral vascular disease with prior bypass graft surgery, and numerous vascular procedures including femoral popliteal bypasses, who developed worsening ischemic changes in the left foot. The patient had a left lower extremity runoff angiography and this was at the beginning of April and then on May 07, the patient had a left common femoral endarterectomy with profundoplasty with greater saphenous vein patch angioplasty, left common femoral artery to posterior tibial artery bypass and composite bilateral lower extremity lesser saphenous and left lower extremity greater saphenous tributary veins. The patient was waiting for another procedure because of the poor quality of the conduit before the bypass. The attempt was going to be made for limb salvage with a cadaveric vein. She developed bleeding in the left groin and she was taken to the operating room. There was evidence of dehiscence of the anastomosis, where the lesser saphenous vein was sewn into the greater saphenous vein patch of the endarterectomized common femoral proximally. The graft was thrombosed and there was some thrombus extending into the posterior tibial artery. The cadaveric vein was anastomosed end-to-side to the posterior tibial artery. The graft was seen to be thrombosed and there was some purplish discoloration of the posterior tibial, distal to the graft anastomosis. Before the second intervention on May 13, the patient started to have fever. She had a little bit of cough, dyspnea, and 2 out of 2 sets of blood cultures have yielded Pseudomonas aeruginosa. The patient has been started on Zosyn and quinolone intravenously. She is a little bit drowsy, but oriented, follows commands, and pleasant. No headaches. Vbnj-to-jizefmoe sore throat and some cough, but not much. No chest pain. No back pain. No abdominal pain. She is voiding in a bedside toilet. She has a central line, which was placed today in the left subclavian location. PAST MEDICAL HISTORY: Coronary artery disease, prior myocardial infarctions, TIA, peripheral vascular disease with previous femoral-popliteal bypasses on the left side x4, appendectomy, cholecystectomy, and tubal ligation. SOCIAL HISTORY: The patient had been smoking up until last year, but has discontinued since. Drinks occasionally. ALLERGIES: HISTORY OF ALLERGY TO DEMEROL. FAMILY HISTORY: Noncontributory. CURRENT MEDICATIONS: 1. DuoNeb. 2. Ecotrin. 3. Lipitor. 4. Tums. 5. Plavix. 6. Sublimaze. 7. Dilaudid. 8. Levofloxacin. 9. Zosyn. 10. Zolpidem. PHYSICAL EXAMINATION: VITAL SIGNS: She started having fever on 05/10 and then went up to 102.7 on . Other vital signs, blood pressure kailey was 89/60 on May 08 and she is now 109/ 63. Respiratory rate 18 and O2 saturation 96 on room air. SKIN: She has the skin exam, which shows some erythema in the dorsal aspect of the left foot with an elliptical irregular wound with scab covering it, measuring about 1.5 cm. There is some element of onycholysis in the first toenail. She has the wounds covered. I did not remove the dressing at this point in time, along the left lower extremity from the leg all the way to the groin. She has a central line catheter in the left subclavian location and does not have a Glovre catheter. There is no lymphadenopathy. HEENT: Ocular movements conjugate. Sclerae white. Pupils are equal. Oral cavity normal. NECK: Supple. No jugular vein distention. LUNGS: Symmetric clear breath sounds. HEART: S1 and S2. Regular rate. No S3 or S4. ABDOMEN: Soft, not distended or tender. There is moderate tenderness in the left groin region and along the incisions for the bypass and redo surgery. EXTREMITIES: She has a dopplerable pulse in the left dorsalis pedis and the toes on the left side is somewhat cool to touch. She is able to move them with some pain. NEUROLOGIC: She is oriented. Follows commands. LABORATORY DATA: White cell count was 10.3 went up to 11.8, hemoglobin 9.9, and platelets 108,000. INR 1.4. Creatinine 0.73, sodium 138, and phosphorus 1.9. The cultures have revealed sputum with Haemophilus influenzae and urine with Enterobacter cloacae complex and a two sets of blood cultures with Pseudomonas yet pending susceptibility results. ASSESSMENT: Peripheral vascular disease, coronary artery disease, and multiple vascular procedures in the past now with the redo procedure with a femoral tibial bypass. The patient developed bleeding and had to have a revision of the previous surgery with a cadaveric venous graft placed. The initial surgery was on the and the second one was on 05/14. Now with sepsis and P. aeruginosa bacteremia. DISCUSSION: The differential diagnosis includes a postop infection of one of the grafts of the initial surgery as the more likely scenario with colonization by Pseudomonas aeruginosa. The timing of the collection of the samples was at 9: 36 on 05/12. The second sample at so about 6 minutes apart. Unfortunately, those procedures have a significant rate of infection of the grafts and it is the more likely scenario. There is no evidence to suggest pneumonia, intraabdominal, or urinary tract infection causing the Pseudomonas bacteremia, which is the primary culprit here behind the sepsis syndrome. The central line was just placed so I cannot be the culprit although it would be at risk of colonization in the near future. In terms of management, we will continue with the aggressive antimicrobial therapy. I am not going to change the regimen for now except for an increase in the dose of Zosyn + administration in an extended fashion over 4 hrs. One of the main question is the viability of the bypassed site. She did have a second surgery, which hopefully will have cleared the areas that were compromised. I would recommend protracted antimicrobial treatment if the extremity is successfully salvaged. Job ID: [id number] [facility]
--- NOTE | 2019-05-14 19:29 | PRG ---
DATE OF SERVICE: 05/14/2019 SUBJECTIVE: Ms. Whaley apparently started to externally exsanguinate today, was emergently taken to the operating room. She had emergent left groin exploration to control anastomotic bleeding. She then had redo of her left common femoral artery to posterior tibial artery bypass with reversed cadaveric saphenous vein graft and posterior tibial artery thrombectomy. She was successfully weaned from mechanical ventilation in recovery room and transferred to the Critical Care Unit. I have since evaluated her. OBJECTIVE: VITAL SIGNS: She is afebrile, heart rate 76, respiratory rate is 18 , oximetry surprisingly is 96% on room air, blood pressure is 80/64. Heart rate is 124 after surgery as well as signs earlier from before surgery. HEENT: She has oxygen in place. LUNGS: Clear. HEART: Regular rhythm. ABDOMEN: Soft. EXTREMITIES: Warm. LABORATORY DATA: White count 11.8, hemoglobin 9.9, platelets are 108,000. Sodium 138, potassium 3.4, chloride 106, bicarb 24, BUN 11, and creatinine 0.73. IMPRESSION: Status post emergent repair of an anastomotic leak leading to a large volume blood loss. She is stable surprisingly after surgery with no evidence of cardiogenic and noncardiogenic pulmonary edema. Given the resting tachycardia, she is probably still a little bit behind on volume. This is being managed by the thoracic surgeon. Critical care time is 30 minutes. Job ID: [id number] [facility]
[2019-05-14] MEDS: traZODone HCl 50 MG TAB PO SCH (20:09)
[2019-05-14] MEDS: Atorvastatin Calcium 40 MG TAB PO SCH (20:09)
[2019-05-14] MEDS: Melatonin 3 MG TAB PO SCH (20:28)
[2019-05-14] MEDS: Cepastat Lozenges 1 LOZ PO PRN (22:33)
[2019-05-14] MEDS: Piperacillin/Tazobactam 4.5 GM in Sodium Chloride 0.9% 100 ML IVPB SCH (23:45)
[2019-05-15] MEDS: Cepastat Lozenges 1 LOZ PO PRN ×4 (02:06→20:34)
[2019-05-15] MEDS: HYDROmorphone 2 MG TAB PO PRN ×5 (02:12→20:26)
[2019-05-15] MEDS: Sodium Chloride 0.9% 1,000 ML IV SCH ×2 (02:18→13:25)
[2019-05-15 06:51] LABS: #Eosinphils 0.1 thou/uL (0.0-0.7); #Lymphocytes 1.1 thou/uL (1.20-3.40); #Neutrophils 7.3 thou/uL (1.40-6.50); %Basophils 0.3 % (0.0-1.0); %Eosinophils 0.6 % (0.0-10.0); %Lymphocytes 12.1 % (21.0-51.0); %Monocytes 10.1 % (0.0-10.0); %Neutrophils 76.9 % (42.0-75.0); Hemoglobin 8.9 g/dL (12.0-16.0); Mean Corpuscular HGB CONC 34.4 g/dL (32.0-36.0); Mean Corpuscular Hemoglobin 30.1 pg (27.0-31.0); Mean Corpuscular Volume 87.4 fL (78.0-98.0); Mean Platelet Volume 8.2 fL (7.4-10.4); Platelet Count 108 thou/uL (130-400); RBC Distribution Width 15.1 % (11.5-14.5); Red Blood Cell (RBC) Count 2.97 mill/uL (4.20-5.40); White Blood Cell (WBC) Count 9.5 thou/uL (4.8-10.8)
[2019-05-15 07:10] LABS: Anion Gap 10 mmol/L (10-20); BUN (Urea Nitrogen) 7 mg/dL (9.8-20.1); Calc. Creatinine Clearance 171 mL/min (70-130); Calcium 8.2 mg/dL (7.8-10.44); Carbon Dioxide 24 mmol/L (23-31); Chloride 107 mmol/L (98-107); Estimated GFR-MDRD Greater than 90; Glucose 92 mg/dL (80-115); Potassium 3.4 mmol/L (3.5-5.1); Sodium 138 mmol/L (136-145)
[2019-05-15] MEDS: Piperacillin/Tazobactam 4.5 GM in Sodium Chloride 0.9% 100 ML IVPB SCH ×2 (08:26→15:30)
[2019-05-15] MEDS: Aspirin 81 mg Enteric Coated Tablet PO SCH (08:26)
[2019-05-15] MEDS: Clopidogrel Bisulfate 75 MG TAB PO SCH (08:26)
[2019-05-15] MEDS: Metoprolol Tartrate 25 MG TAB PO SCH ×2 (08:27→21:00)
--- NOTE | 2019-05-15 11:16 | PRG ---
DATE OF SERVICE: 05/15/2019 SUBJECTIVE: This morning, she is awake, alert, responsive, status post emergency surgery from aortic bypass surgery. OBJECTIVE: VITAL SIGNS: This morning, blood pressure is 100/80, pulse 80, respiratory rate 18, afebrile. CHEST: No wheezing or crackles. CARDIAC: Normal S1 and S2. No gallops. ABDOMEN: No masses. LABORATORY DATA: H and H are stable at 8 and 25. Lytes are normal. She has an Enterobacter and H flu in the sputum and urine respectively. Previously, she had Pseudomonas in the blood culture. MEDICATIONS: Levaquin and Zosyn are her antibiotics. IMPRESSION: 1. Status post emergency left groin exploration for massive bleeding post aortic bypass surgery. 2. Morbid obesity. 3. Sepsis syndrome. PLAN: Continue broad-spectrum antibiotics for Pseudomonas sepsis. Continue hydration, supportive care, PT. She is on Plavix. For supportive care, probably needs to be started on Lovenox in the next day or two. Job ID: [id number]
[2019-05-15] MEDS: Atorvastatin Calcium 40 MG TAB PO SCH (20:30)
[2019-05-15] MEDS: Zolpidem Tartrate 5 MG TAB PO PRN (20:31)
[2019-05-15] MEDS: traZODone HCl 50 MG TAB PO SCH (20:32)
[2019-05-15] MEDS: Melatonin 3 MG TAB PO SCH (20:37)
[2019-05-16] MEDS: Sodium Chloride 0.9% 1,000 ML IV SCH ×3 (00:11→20:12)
[2019-05-16] MEDS: Piperacillin/Tazobactam 4.5 GM in Sodium Chloride 0.9% 100 ML IVPB SCH ×3 (00:11→15:43)
[2019-05-16] MEDS: HYDROmorphone 2 MG TAB PO PRN ×4 (01:15→20:18)
[2019-05-16 04:54] LABS: #Eosinphils 0.2 thou/uL (0.0-0.7); #Lymphocytes 1.3 thou/uL (1.20-3.40); #Monocytes 0.6 thou/uL (0.11-0.59); #Neutrophils 5.8 thou/uL (1.40-6.50); %Basophils 0.2 % (0.0-1.0); %Eosinophils 2.5 % (0.0-10.0); %Lymphocytes 16.4 % (21.0-51.0); Hemoglobin 8.9 g/dL (12.0-16.0); Mean Corpuscular HGB CONC 34.2 g/dL (32.0-36.0); Mean Corpuscular Hemoglobin 30.4 pg (27.0-31.0); Mean Platelet Volume 8.9 fL (7.4-10.4); Platelet Count 121 thou/uL (130-400); RBC Distribution Width 15.4 % (11.5-14.5); Red Blood Cell (RBC) Count 2.92 mill/uL (4.20-5.40); White Blood Cell (WBC) Count 7.9 thou/uL (4.8-10.8)
[2019-05-16 05:17] LABS: Anion Gap 10 mmol/L (10-20); BUN (Urea Nitrogen) 8 mg/dL (9.8-20.1); Calc. Creatinine Clearance 179 mL/min (70-130); Calcium 8.4 mg/dL (7.8-10.44); Carbon Dioxide 25 mmol/L (23-31); Chloride 106 mmol/L (98-107); Estimated GFR-MDRD Greater than 90; Glucose 103 mg/dL (80-115); Potassium 3.5 mmol/L (3.5-5.1); Sodium 137 mmol/L (136-145)
[2019-05-16] MEDS: Clopidogrel Bisulfate 75 MG TAB PO SCH (09:08)
[2019-05-16] MEDS: Aspirin 81 mg Enteric Coated Tablet PO SCH (09:08)
[2019-05-16] MEDS: Metoprolol Tartrate 25 MG TAB PO SCH ×2 (09:08→20:17)
[2019-05-16] MEDS: Acetaminophen 325 MG TAB PO PRN (13:36)
[2019-05-16] MEDS: Atorvastatin Calcium 40 MG TAB PO SCH (20:17)
[2019-05-16] MEDS: traZODone HCl 50 MG TAB PO SCH (20:18)
[2019-05-16] MEDS: Zolpidem Tartrate 5 MG TAB PO PRN (20:18)
[2019-05-16] MEDS: Melatonin 3 MG TAB PO SCH (20:33)
--- NOTE | 2019-05-16 20:33 | PRG ---
DATE OF SERVICE: 05/16/2019 SUBJECTIVE: Ms. Whaley is clinically doing well. They did try to sit her up today and she had serosanguineous drainage out of her wound on her leg. OBJECTIVE: VITAL SIGNS: She is afebrile. Heart rate in the 70s, respiratory rates in the teens, oximetry is 98% on a cannula, blood pressure 124/79. Intake and output, positive 1773. LUNGS: Clear. HEART: Regular rhythm. ABDOMEN: Soft. EXTREMITIES: Have bandages where the surgery was. LABORATORY DATA: White count 7.9, hemoglobin 8.9, platelets 121. Sodium 137, potassium 3.5, chloride 106, bicarb 25, BUN 8, and creatinine 0.6. IMPRESSION: Status post massive blood loss, requiring repair of an anastomotic leak. Overall, she appears to be doing well, weakness and deconditioning is an issue. Draining wound is a concern for future infection risk, but at this point in time, everything appears to be reasonably stable. Job ID: [id number]
[2019-05-17] MEDS: Piperacillin/Tazobactam 4.5 GM in Sodium Chloride 0.9% 100 ML IVPB SCH ×4 (00:53→23:55)
[2019-05-17] MEDS: HYDROmorphone 2 MG TAB PO PRN ×5 (00:53→18:46)
[2019-05-17] MEDS: Acetaminophen 325 MG TAB PO PRN ×2 (01:01→08:43)
[2019-05-17] MEDS: Sodium Chloride 0.9% 1,000 ML IV SCH ×3 (05:23→23:58)
[2019-05-17] MEDS: Clopidogrel Bisulfate 75 MG TAB PO SCH (08:43)
[2019-05-17] MEDS: Metoprolol Tartrate 25 MG TAB PO SCH ×2 (08:44→21:49)
[2019-05-17] MEDS: Aspirin 81 mg Enteric Coated Tablet PO SCH (08:44)
[2019-05-17] MEDS: Melatonin 3 MG TAB PO SCH (21:48)
[2019-05-17] MEDS: Zolpidem Tartrate 5 MG TAB PO PRN (21:49)
[2019-05-17] MEDS: Atorvastatin Calcium 40 MG TAB PO SCH (21:49)
[2019-05-17] MEDS: traZODone HCl 50 MG TAB PO SCH (21:49)
[2019-05-17] MEDS: Cepastat Lozenges 1 LOZ PO PRN (21:58)
[2019-05-18] MEDS: HYDROmorphone 2 MG TAB PO PRN ×4 (05:43→22:05)
[2019-05-18] MEDS: Metoprolol Tartrate 25 MG TAB PO SCH ×2 (08:24→21:22)
[2019-05-18] MEDS: Aspirin 81 mg Enteric Coated Tablet PO SCH (08:24)
[2019-05-18] MEDS: Piperacillin/Tazobactam 4.5 GM in Sodium Chloride 0.9% 100 ML IVPB SCH ×3 (08:25→23:27)
[2019-05-18] MEDS: Clopidogrel Bisulfate 75 MG TAB PO SCH (08:25)
[2019-05-18] MEDS ORDERED: HYDROmorphone 2 MG TAB PO SCH (11:00)
[2019-05-18] MEDS: Sodium Chloride 0.9% 1,000 ML IV SCH ×3 (15:34→23:27)
--- NOTE | 2019-05-18 15:40 | PRG ---
DATE OF SERVICE: 05/18/2019 SUBJECTIVE: Ms. Whaley is ambulating in the stacy slowly. She says her legs are throbbing, but it is tolerable. She had no new complaints. She denies shortness of breath. OBJECTIVE: VITAL SIGNS: Blood pressure 136/80, heart rate 78, respiratory rates in the teens, oximetry is 97%. LUNGS: Clear. HEART: Regular rhythm. ABDOMEN: Soft. EXTREMITIES: She still has Doppler pulses in feet. LABORATORY DATA: No new lab today. IMPRESSION: Status post near exsanguination with emergent repair of an anastomotic leak with a cadaveric vein graft. She appears to be doing reasonably well. She has recollection of the day, but also understands that if she had not been in the hospital when that happened, she probably would have exsanguinated. She is very grateful for the care that is being given to her at this point. We will continue with supportive care, which is mainly wound care, lab checks intermittently, and physical therapy. Job ID: [id number]
--- NOTE | 2019-05-18 17:28 | PRG ---
DATE OF SERVICE: 05/18/2019 SUBJECTIVE: Ms. Whaley is feeling better. Denies any chest pain. No shortness of breath. No abdominal pain. Mild pain in the left foot. OBJECTIVE: VITAL SIGNS: Temperature has been normal, BP 130/80, pulse 80. SKIN: Shows the irregular shaped 1 cm ulcer with about 30% dark tissue at the base with no erythema at the margins over the dorsal aspect of the left proximal MPJ skin site. There is a small blister proximal to the third left MPJ. The incisions are all dressed and I did not remove them at this time. The skin is speech therapist early intervention the left foot with a dopplerable pulse, which is quite strong. HEENT: Ocular movements are conjugate. LUNGS: Clear. HEART: S1 and S2. Regular rate. ABDOMEN: Soft, not distended. LABORATORY DATA: White cell count 7.9, hemoglobin 8.9, platelets 121, 73% neutrophils. Creatinine 0.61, sodium 137. Microbiology with propionibacterium, Peptostreptococcus, Pseudomonas aeruginosa, and groin swab. ASSESSMENT AND DISCUSSION: Peripheral vascular disease, coronary artery disease, multiple vascular procedures in the past, now with a redo procedure of femoral tibial bypass with postop infection, probably at the groin site. Continue Zosyn for protracted periods of time, probably at least 4 weeks if not six and then transition to oral quinolone at the end. The left foot appears viable at this point in time. Job ID: [id number]
[2019-05-18] MEDS: Atorvastatin Calcium 40 MG TAB PO SCH (21:21)
[2019-05-18] MEDS: Acetaminophen 325 MG TAB PO PRN (21:22)
[2019-05-18] MEDS: traZODone HCl 50 MG TAB PO SCH (21:22)
[2019-05-18] MEDS: Melatonin 3 MG TAB PO SCH (21:22)
[2019-05-18] MEDS: Zolpidem Tartrate 5 MG TAB PO PRN (22:05)
[2019-05-19 04:41] LABS: #Eosinphils 0.2 thou/uL (0.0-0.7); #Lymphocytes 1.5 thou/uL (1.20-3.40); #Monocytes 0.7 thou/uL (0.11-0.59); #Neutrophils 4.8 thou/uL (1.40-6.50); %Eosinophils 2.9 % (0.0-10.0); %Lymphocytes 20.3 % (21.0-51.0); %Monocytes 9.8 % (0.0-10.0); Mean Corpuscular Hemoglobin 30.5 pg (27.0-31.0); Mean Corpuscular Volume 89.7 fL (78.0-98.0); Platelet Count 190 thou/uL (130-400); RBC Distribution Width 15.3 % (11.5-14.5); Red Blood Cell (RBC) Count 2.94 mill/uL (4.20-5.40); White Blood Cell (WBC) Count 7.1 thou/uL (4.8-10.8)
[2019-05-19 05:01] LABS: Anion Gap 8 mmol/L (10-20); BUN (Urea Nitrogen) 6 mg/dL (9.8-20.1); Calc. Creatinine Clearance 160 mL/min (70-130); Carbon Dioxide 27 mmol/L (23-31); Chloride 107 mmol/L (98-107); Estimated GFR-MDRD Greater than 90; Glucose 97 mg/dL (80-115); Potassium 3.7 mmol/L (3.5-5.1); Sodium 138 mmol/L (136-145)
[2019-05-19] MEDS: Piperacillin/Tazobactam 4.5 GM in Sodium Chloride 0.9% 100 ML IVPB SCH ×2 (09:03→15:58)
[2019-05-19] MEDS: Metoprolol Tartrate 25 MG TAB PO SCH ×2 (09:03→20:06)
[2019-05-19] MEDS: Aspirin 81 mg Enteric Coated Tablet PO SCH (09:03)
[2019-05-19] MEDS: Clopidogrel Bisulfate 75 MG TAB PO SCH (09:03)
[2019-05-19] MEDS: HYDROmorphone 2 MG TAB PO PRN ×3 (09:04→20:07)
[2019-05-19] MEDS: Sodium Chloride 0.9% 1,000 ML IV SCH (16:00)
--- NOTE | 2019-05-19 16:46 | PRG ---
DATE OF SERVICE: 05/19/2019 SERVICE: Pulmonary Medicine. INTERVAL HISTORY: The patient is doing fine from respiratory standpoint. She is breathing comfortably. She denies having any cough, shortness of breath, nausea, or vomiting. She did not have any fevers overnight. She is having blood flow to the left foot. There is improving color there as well. She is able to get out of bed and into a chair. She had not had any events in the last 3 days. PHYSICAL EXAMINATION: VITAL SIGNS: Afebrile, pulse 78, blood pressure 135/60, respirations 16, and saturation 97% on room air. GENERAL: The patient is awake and alert, in no apparent distress. LUNGS: Decent air entry with a slightly prolonged expiratory phase. No wheezing or rhonchi are appreciated. HEART: Normal rate. Regular. ABDOMEN: Soft, nontender, and nondistended. Bowel sounds are positive. MUSCULOSKELETAL: No cyanosis or clubbing. There is 2+ pitting in the left lower extremity and 1+ pitting in the right lower extremity. She has actual pulses in the dorsalis pedis and the anterior tibialis on the bilateral feet. LABORATORY DATA: Hemoglobin 9.0. Basic metabolic profile is unremarkable. Multiple organisms are growing in the blood cultures including Pseudomonas x2, Haemophilus in the sputum, Enterobacter in the urine, Pseudomonas in the groin, and Peptostreptococcus and Propionibacterium in various leg sites. ASSESSMENT: 1. Peripheral vascular disease, severe, status post multiple operations. 2. Acute blood loss anemia with near exsanguination, stable x3 days. 3. Bacteremia secondary to Pseudomonas. 4. Sepsis without end-organ damage. DISCUSSION AND PLAN: The patient is stable from a respiratory standpoint. She can be transitioned out of the ICU to the intermediate care unit. IV fluids will be interrupted. I will give her a laboratory holiday tomorrow morning. Pulmonary/Critical Care will continue to follow along while the patient remains inhouse given her recent setback. Job ID: [id number]
[2019-05-19] MEDS: Atorvastatin Calcium 40 MG TAB PO SCH (20:05)
[2019-05-19] MEDS: Melatonin 3 MG TAB PO SCH (20:06)
[2019-05-19] MEDS: traZODone HCl 50 MG TAB PO SCH (20:06)
[2019-05-20] MEDS: Piperacillin/Tazobactam 4.5 GM in Sodium Chloride 0.9% 100 ML IVPB SCH ×4 (00:15→23:59)
[2019-05-20] MEDS: HYDROmorphone 2 MG TAB PO PRN ×4 (00:35→20:40)
[2019-05-20] MEDS: Clopidogrel Bisulfate 75 MG TAB PO SCH (08:42)
[2019-05-20] MEDS: Metoprolol Tartrate 25 MG TAB PO SCH ×2 (08:42→20:40)
[2019-05-20] MEDS: Aspirin 81 mg Enteric Coated Tablet PO SCH (08:42)
[2019-05-20 08:49] LABS: Actual Bicarbonate (HCO3a) 21.5 mEq/L (22-28); Analyzer IN Cardio OR; Base Excess (BEa) -3.8 mEq/L (-2.0 to +3.0); CO2 Tension 40.1 mmHg (35.0-45.0); Calcium, Ionized 1.01 mmol/L (1.12-1.30); Carboxyhemoglobin (COHb) 0.8 gm% (0.0-3.0); Hemoglobin (Hb) 8.9 g/dL (12.0-16.0); O2 Tension (PaO2) 362.8 mmHg (> 80.0); Potassium - ABG Lab 2.89 mmol/L (3.70-5.30); pH, Arterial 7.35 (7.35-7.45)
[2019-05-20 08:49] LABS: Actual Bicarbonate (HCO3a) 18.1 mEq/L (22-28); Analyzer IN Cardio OR; Base Excess (BEa) -8.6 mEq/L (-2.0 to +3.0); CO2 Tension 43.1 mmHg (35.0-45.0); Calcium, Ionized 1.02 mmol/L (1.12-1.30); Carboxyhemoglobin (COHb) 1.3 gm% (0.0-3.0); Hemoglobin (Hb) 6.7 g/dL (12.0-16.0); O2 Tension (PaO2) 456.8 mmHg (> 80.0); Potassium - ABG Lab 3.22 mmol/L (3.70-5.30)
[2019-05-20 08:49] LABS: Actual Bicarbonate (HCO3a) 19.9 mEq/L (22-28); Analyzer IN Cardio OR; Base Excess (BEa) -5.6 mEq/L (-2.0 to +3.0); CO2 Tension 38.7 mmHg (35.0-45.0); Calcium, Ionized 0.99 mmol/L (1.12-1.30); Hemoglobin (Hb) 8.2 g/dL (12.0-16.0); O2 Tension (PaO2) 457.6 mmHg (> 80.0); Potassium - ABG Lab 2.94 mmol/L (3.70-5.30); pH, Arterial 7.33 (7.35-7.45)
[2019-05-20 09:20] LABS: Puncture Site ALINE
[2019-05-20 09:20] LABS: Puncture Site ALINE
[2019-05-20 09:21] LABS: Puncture Site ALINE; pH, Arterial 7.24 (7.35-7.45)
--- NOTE | 2019-05-20 13:26 | PRG ---
DATE OF SERVICE: 05/20/2019 SERVICE: Pulmonary Medicine. INTERVAL HISTORY: The patient is doing fine from a respiratory standpoint. She denies any current chest pain, fevers, or chills. She is not experiencing any shortness of breath, nausea, or vomiting. She is tolerating p.o. just fine. She is requiring frequent doses of pain medications. Otherwise, there is no interval change to her condition. PHYSICAL EXAMINATION: VITAL SIGNS: Afebrile, pulse 69, blood pressure 106/77, respirations 15, saturation 96% on room air. GENERAL: The patient is awake and alert, in no apparent distress. LUNGS: Very good air entry. There is minimal dependent crackles present. No wheezing or rhonchi appreciated. HEART: Normal rate. Regular. ABDOMEN: Soft, nontender, nondistended. Bowel sounds are positive. MUSCULOSKELETAL: No cyanosis or clubbing. She has decent pulses in the bilateral lower extremities, which are at this point roughly symmetric. There is 2+ edema in the left lower extremity and trace to 1+ pitting in the right lower extremity. ASSESSMENT: 1. Peripheral vascular disease, severe, status post multiple operations. 2. Acute blood loss anemia with near exsanguination, stable x6 days. 3. Bacteremia, secondary to Pseudomonas. 4. Sepsis without end-organ damage. DISCUSSION AND PLAN: We will watch the lower extremity swelling pretty closely. If it fails to go down, an ultrasound of the leg may be indicated. Pulmonary/Critical Care will continue to follow along while she remains in this location. She is pending orders for transition to the floor. Job ID: [id number]
[2019-05-20] MEDS: Zolpidem Tartrate 5 MG TAB PO PRN (20:39)
[2019-05-20] MEDS: Melatonin 3 MG TAB PO SCH (20:39)
[2019-05-20] MEDS: traZODone HCl 50 MG TAB PO SCH (20:40)
[2019-05-20] MEDS: Atorvastatin Calcium 40 MG TAB PO SCH (20:40)
[2019-05-20] MEDS ORDERED: Piperacillin/Tazobactam 4.5 GM VIAL ONE (23:56)
[2019-05-21] MEDS: Piperacillin/Tazobactam 4.5 GM in Sodium Chloride 0.9% 100 ML IVPB SCH ×2 (08:52→16:00)
[2019-05-21] MEDS: HYDROmorphone 2 MG TAB PO PRN ×3 (08:56→21:08)
[2019-05-21] MEDS: Clopidogrel Bisulfate 75 MG TAB PO SCH (08:58)
[2019-05-21] MEDS: Aspirin 81 mg Enteric Coated Tablet PO SCH (08:58)
[2019-05-21] MEDS: Metoprolol Tartrate 25 MG TAB PO SCH ×2 (08:58→20:59)
--- NOTE | 2019-05-21 13:13 | PRG ---
DATE OF SERVICE: 05/21/2019 SERVICE: Pulmonary Medicine. INTERVAL HISTORY: The patient is doing fine from respiratory standpoint. Breathing comfortably. She is on room air. She slept well last night. She feels more refreshed today and has more energy. She has much improved pain in her leg right now. Earlier, got cold, so she put a sock on it. The throbbing ultimately stopped. PHYSICAL EXAMINATION: VITAL SIGNS: Afebrile, pulse 94, blood pressure 142/80, respirations 27, saturation 98% on room air. GENERAL: The patient is awake and alert, in no apparent distress. LUNGS: Decent air entry. No prolonged expiratory phase, wheezing, or crackles appreciated. HEART: Normal rate. Regular. ABDOMEN: Soft, nontender, and nondistended. Bowel sounds are positive. MUSCULOSKELETAL: No cyanosis or clubbing. There is decreasing pitting in the bilateral lower extremities. The left leg once again has absent pulses to palpation. ASSESSMENT: 1. Peripheral vascular disease, severe, status post multiple operations. 2. Acute blood loss anemia. 3. Bacteremia, secondary to Pseudomonas. 4. Sepsis without end-organ damage, resolving. DISCUSSION AND PLAN: The patient is doing fine from respiratory standpoint. Pulmonary/Critical Care will continue to follow along while she remains in this location. The patient will likely require placement of a PICC line for her long-term antibiotics. Job ID: [id number]
--- NOTE | 2019-05-21 18:20 | PRG ---
DATE OF SERVICE: 05/21/2019 SUBJECTIVE: Ms. Whaley is feeling well. She is finally able to lift her leg since the pain has improved markedly and the swelling is down as well. No respiratory symptoms or chest pain. No abdominal pain or diarrhea. OBJECTIVE: VITAL SIGNS: Essentially normal. She had a little bit of temp at 99.8 earlier, but now she is afebrile. BP 130/77, heart rate 85, O2 saturation 98%. GENERAL: Appears in no distress, pleasant. HEENT: Ocular movements are conjugate. LUNGS: Clear. HEART: S1 and S2. Regular rate. ABDOMEN: Soft and not distended. EXTREMITIES: The leg has a quite a bit of serous drainage from the wounds. The foot has a round-shaped necrotic ulcer in the dorsal aspect of the left first toe and one small blister in the dorsal aspect of the third toe MPJ skin site. There is good temperature and no tenderness. LABORATORY DATA: White cell count down to 7.1, hemoglobin 9.0, platelets 190. Sodium 138, creatinine 0.64. Microbiology with the Pseudomonas aeruginosa. She also has propionibacterium and slight Peptostreptococcus julio like swab. ASSESSMENT AND DISCUSSION: Peripheral vascular disease, coronary artery disease, multiple vascular procedures in the past, now with redo procedure of femoral-tibial bypass and with postop infection probably at the groin site due to Pseudomonas aeruginosa, but also with other organisms, which could be implicated in the process. The plan is to continue Zosyn intravenously for a total of 4 weeks and the end date of therapy will be June 14 with weekly labs. Peripherally inserted central catheter line will be inserted. Job ID: [id number]
[2019-05-21] MEDS: Melatonin 3 MG TAB PO SCH (20:59)
[2019-05-21] MEDS: traZODone HCl 50 MG TAB PO SCH (20:59)
[2019-05-21] MEDS: Atorvastatin Calcium 40 MG TAB PO SCH (21:02)
[2019-05-22] MEDS: Piperacillin/Tazobactam 4.5 GM in Sodium Chloride 0.9% 100 ML IVPB SCH ×3 (00:12→16:46)
[2019-05-22] MEDS: Cepastat Lozenges 1 LOZ PO PRN ×2 (02:21→20:42)
[2019-05-22] MEDS: HYDROmorphone 2 MG TAB PO PRN (02:25)
[2019-05-22] MEDS: Aspirin 81 mg Enteric Coated Tablet PO SCH (09:00)
[2019-05-22] MEDS: Clopidogrel Bisulfate 75 MG TAB PO SCH (09:00)
[2019-05-22] MEDS: Metoprolol Tartrate 25 MG TAB PO SCH ×2 (09:00→20:49)
--- NOTE | 2019-05-22 15:54 | SPC ---
Sonographic guided left upper extremity PICC HISTORY: Leg infection. Need for long-term antibiotics. FINDINGS: After explaining the procedure and answering all questions, the left upper extremity was pr epped and draped in usual sterile fashion. Sterile technique, buffered local anesthesia, sonographic guidance, and a 22-gauge needle were used to carefully access the left basilic vein. Stefano dard technique was used to place the tip of a 5 Arabic dual-lumen PICC so that the tip lies at the level of the superior vena cava. The catheter was flushed and secured externally. Patient tolerated t he procedure well and was returned in unchanged condition. Fluoroscopy time 0.1 minutes. IMPRESSION: Left upper extremity PICC is ready for use.
--- NOTE | 2019-05-22 17:20 | PRG ---
DATE OF SERVICE: 05/22/2019 SERVICE: Pulmonary Medicine. INTERVAL HISTORY: The patient is doing really well from respiratory standpoint. Breathing comfortably. She is able to walk and stand. She is ambulating from the bed to the bedside commode and back again without assistance. Otherwise, she feels like her lower extremity swelling and discomfort have improved. PHYSICAL EXAMINATION: VITAL SIGNS: Afebrile, pulse 89, blood pressure 124/78, respirations 30, saturation 100% on room air. GENERAL: The patient is awake and alert, in no apparent distress. LUNGS: Decent air entry. No prolonged expiratory phase or wheezing is appreciated. HEART: Normal rate, regular. ABDOMEN: Soft, nontender, and nondistended. Bowel sounds are positive. MUSCULOSKELETAL: No cyanosis or clubbing. No pitting in the bilateral lower extremities. NEUROLOGIC: Grossly nonfocal. ASSESSMENT: 1. Peripheral vascular disease, severe, status post multiple operations. 2. Acute blood loss anemia. 3. Bacteremia secondary to Pseudomonas, though polymicrobial infection is suspected. 4. Sepsis without end-organ damage, resolving. DISCUSSION AND PLAN: At this point, the patient is stable for transition out of the hospital from purely respiratory perspective. I will continue to follow, intermittently while the patient remains inhouse. Please call with additional questions or concerns through time. Job ID: [id number]
[2019-05-22] MEDS ORDERED: Piperacillin/Tazobactam 4.5 GM VIAL ONE (17:48)
[2019-05-22] MEDS: traZODone HCl 50 MG TAB PO SCH (20:41)
[2019-05-22] MEDS: Atorvastatin Calcium 40 MG TAB PO SCH (20:41)
[2019-05-22] MEDS: Melatonin 3 MG TAB PO SCH (20:41)
[2019-05-23] MEDS: Piperacillin/Tazobactam 4.5 GM in Sodium Chloride 0.9% 100 ML IVPB SCH ×4 (00:11→23:53)
[2019-05-23] MEDS: Acetaminophen 325 MG TAB PO PRN ×2 (05:58→16:20)
[2019-05-23] MEDS: Cepastat Lozenges 1 LOZ PO PRN ×2 (05:59→21:11)
[2019-05-23] MEDS: Metoprolol Tartrate 25 MG TAB PO SCH ×2 (08:32→21:08)
[2019-05-23] MEDS: Clopidogrel Bisulfate 75 MG TAB PO SCH (08:32)
[2019-05-23] MEDS: Aspirin 81 mg Enteric Coated Tablet PO SCH (08:32)
--- NOTE | 2019-05-23 13:32 | PRG ---
DATE OF SERVICE: 05/23/2019 SERVICE: Pulmonary Medicine. INTERVAL HISTORY: The patient is doing fine from respiratory standpoint. She is breathing comfortably. She has no complaints of chest pain, fevers, or chills. She is having frequent bowel movements. She had four yesterday and additional two bowel movements overnight. It is liquid. This is new onset over the last 48 hours. It seems to be getting worse. PHYSICAL EXAMINATION: VITAL SIGNS: Afebrile, pulse 93, blood pressure 109/62, respirations 21, and saturation 96% on room air. GENERAL: The patient is awake and alert, in no apparent distress. LUNGS: Decent air entry. No prolonged expiratory phase, wheezing, crackles or rhonchi appreciated. HEART: Normal rate, regular. ABDOMEN: Soft, nontender, nondistended. Bowel sounds are positive. MUSCULOSKELETAL: No cyanosis or clubbing. No pitting in the bilateral lower extremities. NEUROLOGIC: Grossly nonfocal. ASSESSMENT: 1. Peripheral vascular disease, severe, status post multiple operations. 2. Acute blood loss anemia, stable. 3. Bacteremia secondary to Pseudomonas, thought to be polymicrobial. 4. Sepsis without end-organ damage. 5. Diarrhea, new onset. DISCUSSION AND PLAN: I will repeat laboratories tomorrow morning. With her next bowel movement, we will get a lactoferrin and C. diff antigen and toxin. If it does not appear there is any infectious cause, Imodium will be initiated. Pulmonary will continue to follow along, intermittently while the patient remains in-house. If she runs into any issue over the weekend, please notify my colleague. Dr. Reese is covering. Job ID: [id number]
[2019-05-23] MEDS: Atorvastatin Calcium 40 MG TAB PO SCH (21:10)
[2019-05-23] MEDS: traZODone HCl 50 MG TAB PO SCH (21:10)
[2019-05-23] MEDS: Melatonin 3 MG TAB PO SCH (21:11)
[2019-05-24 06:05] LABS: #Eosinphils 0.2 thou/uL (0.0-0.7); #Lymphocytes 1.3 thou/uL (1.20-3.40); #Monocytes 0.6 thou/uL (0.11-0.59); #Neutrophils 8.6 thou/uL (1.40-6.50); %Basophils 0.2 % (0.0-1.0); %Eosinophils 1.7 % (0.0-10.0); %Lymphocytes 11.8 % (21.0-51.0); %Monocytes 5.6 % (0.0-10.0); %Neutrophils 80.7 % (42.0-75.0); Hemoglobin 9.1 g/dL (12.0-16.0); Mean Corpuscular HGB CONC 30.9 g/dL (32.0-36.0); Mean Corpuscular Hemoglobin 27.4 pg (27.0-31.0); Mean Corpuscular Volume 88.8 fL (78.0-98.0); Mean Platelet Volume 7.1 fL (7.4-10.4); Platelet Count 282 thou/uL (130-400); RBC Distribution Width 14.8 % (11.5-14.5); Red Blood Cell (RBC) Count 3.33 mill/uL (4.20-5.40); White Blood Cell (WBC) Count 10.6 thou/uL (4.8-10.8)
[2019-05-24 06:25] LABS: Anion Gap 9 mmol/L (10-20); BUN (Urea Nitrogen) 7 mg/dL (9.8-20.1); Calc. Creatinine Clearance 147 mL/min (70-130); Calcium 9.6 mg/dL (7.8-10.44); Carbon Dioxide 25 mmol/L (23-31); Chloride 107 mmol/L (98-107); Estimated GFR-MDRD 90; Glucose 105 mg/dL (80-115); Magnesium 1.7 mg/dL (1.6-2.6); Potassium 3.7 mmol/L (3.5-5.1); Sodium 137 mmol/L (136-145)
[2019-05-24] MEDS: Aspirin 81 mg Enteric Coated Tablet PO SCH (09:49)
[2019-05-24] MEDS: Clopidogrel Bisulfate 75 MG TAB PO SCH (09:49)
[2019-05-24] MEDS: Metoprolol Tartrate 25 MG TAB PO SCH ×2 (09:49→23:17)
[2019-05-24] MEDS: Piperacillin/Tazobactam 4.5 GM in Sodium Chloride 0.9% 100 ML IVPB SCH ×2 (09:49→15:47)
[2019-05-24] MEDS ORDERED: Ondansetron PF 4 MG/2 ML Vial ONE (15:02)
[2019-05-24] MEDS ORDERED: ePHEDrine 50 MG/ML VIAL ONE (15:02)
[2019-05-24] MEDS ORDERED: PROPOFOL 200 MG/20 ML VIAL ONE (15:02)
[2019-05-24] MEDS ORDERED: Calcium Chloride 1 GM/10 ML Abboject SYRINGE ONE (15:02)
[2019-05-24] MEDS ORDERED: Succinylcholine Chloride 20 MG/ML 10 ml SYRINGE FS ONE (15:02)
[2019-05-24] MEDS ORDERED: Rocuronium Bromide 10 MG/ML (10ML VIAL) ONE (15:02)
[2019-05-24] MEDS ORDERED: Dexamethasone 20 MG/5 ML VIAL ONE (15:02)
[2019-05-24] MEDS ORDERED: Fentanyl 100 MCG/2 ML VIAL ONE (18:31)
[2019-05-24] MEDS ORDERED: Midazolam HCl 2 mg/2 ml Vial ONE (18:32)
[2019-05-24] MEDS ORDERED: Norepinephrine 4 MG/4 ML VIAL ONE (18:45)
[2019-05-24] MEDS ORDERED: Heparin 5,000 UNITS/ML VIAL ONE (18:49)
[2019-05-24] MEDS ORDERED: Protamine Sulfate 50 MG/5 ML VIAL ONE (18:49)
[2019-05-24] MEDS ORDERED: Ketamine 50 MG/ML (10ML VIAL) ONE (18:51)
[2019-05-24] MEDS ORDERED: Albumin 5% 500 ML ONE ×2 (19:08→19:36)
[2019-05-24] MEDS ORDERED: Fentanyl 100 MCG/2 ML VIAL SLOW IVP PRN ×2 (22:06)
[2019-05-24] MEDS ORDERED: Ondansetron PF 4 MG/2 ML Vial IVP PRN (22:06)
[2019-05-24] MEDS ORDERED: Acetaminophen 325 MG TAB PO PRN (22:06)
[2019-05-24] MEDS ORDERED: Promethazine HCl 25 MG/ML VIAL IM PRN (22:06)
[2019-05-24] MEDS ORDERED: Promethazine HCl 25 MG/ML VIAL PR PRN (22:06)
--- NOTE | 2019-05-24 22:11 | RAD ---
Exam: Chest one view HISTORY:Postop evaluation Comparison: 05/14/2019 FINDINGS: Lungs: Hazy right basilar density. Bilateral interstitial prominence. Cardiac silhouette:Accentuated by portable technique and patient rotation Pulmonary vessels: Prominent, centrally Pleural Spaces: Added density of the inferior right chest may relate to pleural fluid Pneumothorax: None Endotracheal tube is present with tip between thoracic inlet and cheryl. There is a left PICC line wi th tip overlying SVC. Osseous abnormalities: None of acuity. IMPRESSION: Right basilar density which may relate to pleural fluid with adjacent atelectasis. Recomm end continued follow-up Evidence of mild fluid overload.
[2019-05-24] MEDS: Sodium Chloride 0.9% 1,000 ML IV SCH (22:44)
[2019-05-24] MEDS ORDERED: hydrALAZINE 20 MG/ML VIAL SLOW IVP PRN (23:01)
[2019-05-24 23:08] LABS: Actual Bicarbonate (HCO3a) 19.9 mEq/L (22-28); Base Excess (BEa) -6.7 mEq/L (-2.0 to +3.0); CO2 Tension 44.8 mmHg (35.0-45.0); Calcium, Ionized 1.21 mmol/L (1.12-1.30); Carboxyhemoglobin (COHb) 1.7 gm% (0.0-3.0); Hemoglobin (Hb) 9.4 g/dL (12.0-16.0); O2 Tension (PaO2) 95.4 mmHg (> 80.0); Potassium - ABG Lab 3.81 mmol/L (3.70-5.30); pH, Arterial 7.27 (7.35-7.45)
[2019-05-24] MEDS: Atorvastatin Calcium 40 MG TAB PO SCH (23:16)
[2019-05-24] MEDS: Melatonin 3 MG TAB PO SCH (23:17)
[2019-05-24] MEDS: traZODone HCl 50 MG TAB PO SCH (23:18)
[2019-05-24] MEDS ORDERED: Propofol BOLUS 1,000 MG/100 ML VIAL IV PRN (23:27)
[2019-05-24] MEDS ORDERED: Fentanyl BOLUS 250 ML IVPB PRN (23:27)
[2019-05-24] MEDS ORDERED: Propofol 1,000 MG/100 ML VIAL IV PRN (23:27)
[2019-05-24] MEDS ORDERED: Lorazepam 2 MG/ML VIAL SLOW IVP PRN (23:27)
[2019-05-24] MEDS ORDERED: fentaNYL Citrate/PF 2,000 MCG in Sodium Chloride 0.9% 60 ML IV SCH (23:27)
[2019-05-24] MEDS ORDERED: DISCONTINUE PREVIOUS NARCOTIC PAIN MEDICATIONS AND BENZODIAZEPINES FS SCH (23:27)
[2019-05-24] MEDS ORDERED: Morphine 2 MG/ML SYRINGE SLOW IVP PRN (23:27)
[2019-05-25] MEDS: Piperacillin/Tazobactam 4.5 GM in Sodium Chloride 0.9% 100 ML IVPB SCH ×3 (00:45→15:48)
--- NOTE | 2019-05-25 02:59 | OP ---
DATE OF PROCEDURE: 05/24/2019 PROCEDURES PERFORMED: Emergent left groin exploration with control of anastomotic bleeding, explantation of cadaveric vein common femoral artery to posterior tibial artery bypass graft with incision and drainage of multiple leg incisions. PREOPERATIVE DIAGNOSIS: Bleeding, status post cadaveric vein left femoral posterior tibial bypass. POSTOPERATIVE DIAGNOSIS: Bleeding, status post cadaveric vein left femoral posterior tibial bypass. ANESTHESIA: General endotracheal anesthesia. INDICATIONS: The patient is a 63-year-old woman, who at another institution has had multiple vascular procedures on her left lower extremity. She had crippling claudication that rapidly progressed to rest pain and a nonhealing wound on her foot prompting composite femoral distal grafting utilizing lesser saphenous vein and a tributary to the greater saphenous system. Perioperatively, she had an isolated fever spike and had positive blood cultures. Failure of that graft prompted arrangements for re-doing the procedure with a cadaveric vein and while in the holding area, developed brisk bleeding from the groin incision and was found to have had breakdown of the lesser saphenous vein that had been used for graft at the femoral anastomosis, that groin wound grew out Pseudomonas aeruginosa with comparable antibiograms as did her blood cultures even though the wound itself was not grossly infected in appearance. She is now roughly 10 days postop from that procedure receiving appropriate antibiotics, having some serous drainage, but no suspicious drainage from her wounds when she again developed sudden onset of bright red bleeding from her groin wound. Direct pressure was held to allow for transport to the operating room and resuscitation. FINDINGS: Breakdown of the cadaveric vein at the femoral anastomosis. NARRATIVE REPORT: The patient was emergently transported to the operating room with pressure held on the groin incision. General endotracheal anesthesia was induced and additional IVs were inserted, while the patient's leg was prepped and draped; while pressure was being held, that groin wound was re-opened and direct pressure held on the femoral artery where the bleeding was seen. Retractors were put into place and suction was used to evacuate blood and other fluid from the wound to allow for inspection of the unga artery patch and graft. The bleeding point was visualized. Pressure was held on the femoral artery proximally to allow for adequate control of inflow to allow for closure of what appeared to represent a 1 or 2 mm defect in the cadaveric vein near the heel of the anastomosis. When the bleeding was controlled, the groin wound was stapled shut. The drapes were removed and then a more formal circumferential prep and drape of that leg was undertaken. The luz and subcutaneous sutures were removed from all the incisions. The cadaveric vein was ligated and divided near the proximal anastomosis. The unga artery was dissected free sufficiently to allow for placement of vascular clamp proximally and distally. The anastomosis was then taken down. Inspection of the patch that had been performed using remnant of greater saphenous vein, appeared to be intact and in good repair. Because of the quality of the tissues and the degree to which the femoral artery had dilated with that patch, it was opted to repair the defect and retaining the greater saphenous patch rather than excising it as well. The incision in the vein patch was closed in 2 layers of running Prolene using a running horizontal mattress for the initial layer and a running simple suture for the second. The excised proximal esparza of the graft was sent for culture as well as a swab of the wound and a calf wound. The posterior tibial was isolated on either side of the anastomosis. The graft was delivered down to the calf wound and then the anastomosis was taken down and the posterior tibial was closed in 2 layers of running 7-0 Prolene. 3 L of irrigation using a Pulsavac device was used to irrigate the wounds. A 19 mm bulb suction drain was placed along the tract of the graft from groin wound to calf wound and bringing it out through a separate incision, it was secured to the skin with suture. The skin incisions were then closed with interrupted nylon suture alternating simple and vertical mattress sutures. The wounds were dressed and the patient was taken to the intensive care unit in stable condition. Job ID: [id number]
[2019-05-25 04:50] LABS: #Lymphocytes 0.6 thou/uL (1.20-3.40); #Monocytes 0.4 thou/uL (0.11-0.59); #Neutrophils 7.9 thou/uL (1.40-6.50); %Basophils 0.1 % (0.0-1.0); %Eosinophils 0.2 % (0.0-10.0); %Lymphocytes 6.9 % (21.0-51.0); %Monocytes 4.8 % (0.0-10.0); %Neutrophils 88.1 % (42.0-75.0); Hemoglobin 9.5 g/dL (12.0-16.0); Mean Corpuscular HGB CONC 36.5 g/dL (32.0-36.0); Mean Corpuscular Hemoglobin 32.7 pg (27.0-31.0); Mean Corpuscular Volume 89.6 fL (78.0-98.0); Mean Platelet Volume 7.5 fL (7.4-10.4); Platelet Count 236 thou/uL (130-400); RBC Distribution Width 13.7 % (11.5-14.5); White Blood Cell (WBC) Count 8.9 thou/uL (4.8-10.8)
[2019-05-25 05:06] LABS: Anion Gap 10 mmol/L (10-20); BUN (Urea Nitrogen) 9 mg/dL (9.8-20.1); Calc. Creatinine Clearance 152 mL/min (70-130); Carbon Dioxide 21 mmol/L (23-31); Chloride 112 mmol/L (98-107); Estimated GFR-MDRD Greater than 90; Glucose 137 mg/dL (80-115); Sodium 139 mmol/L (136-145)
[2019-05-25 07:46] LABS: Actual Bicarbonate (HCO3a) 19.7 mEq/L (22-28); Base Excess (BEa) -3.8 mEq/L (-2.0 to +3.0); Calcium, Ionized 1.19 mmol/L (1.12-1.30); Carboxyhemoglobin (COHb) 1.2 gm% (0.0-3.0); Hemoglobin (Hb) 9.2 g/dL (12.0-16.0); O2 Tension (PaO2) 100.1 mmHg (> 80.0); Potassium - ABG Lab 3.64 mmol/L (3.70-5.30); pH, Arterial 7.44 (7.35-7.45)
[2019-05-25 07:47] LABS: Puncture Site ALINE
[2019-05-25] MEDS: Sodium Chloride 0.9% 1,000 ML IV SCH ×2 (08:18→18:02)
[2019-05-25] MEDS: Metoprolol Tartrate 25 MG TAB PO SCH ×3 (08:19→21:39)
[2019-05-25] MEDS: Aspirin 81 mg Enteric Coated Tablet PO SCH (08:19)
[2019-05-25] MEDS: Aspirin Chewable 81 MG TAB PO SCH ×2 (08:19→10:47)
[2019-05-25] MEDS: Clopidogrel Bisulfate 75 MG TAB PO SCH ×2 (08:19→10:47)
--- NOTE | 2019-05-25 09:14 | PRG ---
DATE OF SERVICE: 05/25/2019 35 minutes critical care time. SUBJECTIVE: This patient went to the operating room last night because of bleeding from a femoral-popliteal bypass. She was left intubated after surgery. She is awake and alert this morning. OBJECTIVE: VITAL SIGNS: Temperature 98.6, pulse 85, blood pressure 111/61, currently on fentanyl for sedation. HEENT: Unremarkable. NECK: No adenopathy or JVD. CHEST: Clear anteriorly. CARDIAC: S1, S2. Regular. ABDOMEN: Soft, nontender. EXTREMITIES: She has a cold left leg with necrotic toes. Right leg looks okay. LABORATORY DATA: A pH of 7.44, pCO2 of 30, PO2 100 on SIMV rate 14, tidal of 500, PEEP 5, pressure support 10, FiO2 of 50%. White blood cell count 8.9, hematocrit 25.9, and platelet count 236. Sodium 139, potassium 4, chloride 112, CO2 of 21, BUN 9, creatinine 0.6, glucose 137. Chest x-ray shows some chronic interstitial changes bilaterally, may be a small right pleural effusion. ASSESSMENT: 1. Status post operative therapy for bleeding femoral-popliteal. 2. Ischemic left leg. 3. Respiratory failure, requiring mechanical ventilation. 4. Peripheral vascular disease. 5. Bacteremia. PLAN: 1. Will extubate and observe. 2. Continue antibiotics per Infectious Disease service. 3. Further care per Cardiovascular Surgery. The above encompassed 35 minutes of critical care time. Job ID: [id number]
[2019-05-25] MEDS: Fentanyl 100 MCG/2 ML VIAL SLOW IVP PRN ×3 (10:51→21:28)
[2019-05-25] MEDS: Cepastat Lozenges 1 LOZ PO PRN ×3 (11:01→21:40)
--- NOTE | 2019-05-25 12:03 | RAD ---
CHEST 1 VIEW: Date: 05/25/19 INDICATION: Status post groin exploration. COMPARISON: Prior exam dated 05/24/19. FINDINGS: There is increased air space opacity involving both lower lobes that may reflect developing subsegmen abel atelectasis or pneumonia. The patient remains intubated. Left-sided PICC line is similar appearin g. No pneumothorax is evident. IMPRESSION: 1. Bibasilar air space opacities may reflect developing pneumonia or atelectasis. 2. ET tube and left-sided PICC line are unchanged. POS: BH
[2019-05-25] MEDS: traZODone HCl 50 MG TAB PO SCH (21:19)
[2019-05-25] MEDS: Atorvastatin Calcium 40 MG TAB PO SCH (21:19)
[2019-05-25] MEDS: Melatonin 3 MG TAB PO SCH (21:19)
[2019-05-26] MEDS: Piperacillin/Tazobactam 4.5 GM in Sodium Chloride 0.9% 100 ML IVPB SCH ×3 (00:25→15:20)
[2019-05-26] MEDS: Fentanyl 100 MCG/2 ML VIAL SLOW IVP PRN ×4 (01:16→17:58)
[2019-05-26] MEDS: Sodium Chloride 0.9% 1,000 ML IV SCH ×2 (05:13→14:50)
[2019-05-26 05:44] LABS: #Eosinphils 0.1 thou/uL (0.0-0.7); #Lymphocytes 1.4 thou/uL (1.20-3.40); #Monocytes 0.5 thou/uL (0.11-0.59); #Neutrophils 4.2 thou/uL (1.40-6.50); %Basophils 0.6 % (0.0-1.0); %Eosinophils 2.2 % (0.0-10.0); %Lymphocytes 22.4 % (21.0-51.0); %Monocytes 7.6 % (0.0-10.0); %Neutrophils 67.2 % (42.0-75.0); Hemoglobin 8.2 g/dL (12.0-16.0); Mean Corpuscular HGB CONC 33.7 g/dL (32.0-36.0); Mean Corpuscular Hemoglobin 30.7 pg (27.0-31.0); Mean Platelet Volume 7.3 fL (7.4-10.4); Platelet Count 172 thou/uL (130-400); RBC Distribution Width 14.1 % (11.5-14.5); Red Blood Cell (RBC) Count 2.67 mill/uL (4.20-5.40); White Blood Cell (WBC) Count 6.3 thou/uL (4.8-10.8)
[2019-05-26 05:55] LABS: Anion Gap 7 mmol/L (10-20); BUN (Urea Nitrogen) 7 mg/dL (9.8-20.1); Calc. Creatinine Clearance 168 mL/min (70-130); Carbon Dioxide 24 mmol/L (23-31); Chloride 113 mmol/L (98-107); Estimated GFR-MDRD Greater than 90; Glucose 95 mg/dL (80-115); Potassium 3.9 mmol/L (3.5-5.1); Sodium 140 mmol/L (136-145)
[2019-05-26] MEDS: Aspirin 81 mg Enteric Coated Tablet PO SCH (08:30)
[2019-05-26] MEDS: Clopidogrel Bisulfate 75 MG TAB PO SCH (08:31)
[2019-05-26] MEDS: Aspirin Chewable 81 MG TAB PO SCH (08:31)
[2019-05-26] MEDS: Metoprolol Tartrate 25 MG TAB PO SCH ×2 (08:31→20:31)
[2019-05-26] MEDS ORDERED: Fentanyl 250 MCG/5 ML VIAL ONE (11:01)
[2019-05-26] MEDS ORDERED: Fentanyl 100 MCG/2 ML VIAL ONE ×2 (13:28→13:39)
[2019-05-26] MEDS ORDERED: Promethazine HCl 25 MG/ML VIAL ONE (13:42)
[2019-05-26] MEDS ORDERED: Promethazine HCl 25 MG/ML VIAL SLOW IVP PRN (13:52)
[2019-05-26] MEDS ORDERED: Promethazine HCl 25 MG/ML VIAL IM PRN (13:52)
[2019-05-26] MEDS ORDERED: Ondansetron HCl/PF 4 MG/2 ML Vial IVP PRN (13:52)
[2019-05-26] MEDS ORDERED: HYDROmorphone 2 MG/ML VIAL SLOW IVP PRN (13:52)
[2019-05-26] MEDS ORDERED: HYDROmorphone 2 MG/ML VIAL ONE (13:53)
[2019-05-26] MEDS: HYDROmorphone 2 MG TAB PO PRN ×2 (14:51→20:06)
--- NOTE | 2019-05-26 16:03 | OP ---
DATE OF PROCEDURE: 05/26/2019 PROCEDURES PERFORMED: Left below-knee amputation. PREOPERATIVE DIAGNOSES: Peripheral vascular disease with left lower extremity ischemic rest pain and tissue loss. POSTOPERATIVE DIAGNOSES: Peripheral vascular disease with left lower extremity ischemic rest pain and tissue loss. ANESTHESIA: General endotracheal anesthesia. INDICATIONS: The patient is a 63-year-old woman, who has failed her early attempts at limb salvage and is now taken to the operating room for amputation. NARRATIVE REPORT: After informed consent was obtained, the patient was taken to the operating room and placed in supine position on the operating table. After the induction of general endotracheal anesthesia, the dressings were removed from her wounds and the drain tubing was transected near the bulb. Her left lower extremity was then prepped and draped in sterile fashion. The sutures of the calf incision over the posterior tibial artery had been exposed were removed. A transverse incision was made over the anterior half of the leg about a handbreadth below the knee and extended distally just anterior to the fibula and incorporating the previous medial incision. The electrocautery was used to achieve hemostasis and to carry the incision through the anterior lateral compartment musculature. The tibial vessels in that compartment were ligated and divided. The periosteal elevator was used to strip the tibia and the fibula. The fibula was transected with bone carlita and the tibia was transected with a Gigli saw. An amputation knife was used to complete the amputation, creating a posterior flap. The posterior flap was inspected for hemostasis was achieved with the use of silk ligatures and the electrocautery. The fibula was smoothed with a rongeur and rasp. The tibia was smoothed with a rasp and the posterior flap was tailored using a knife and electrocautery. The drain was followed up its tract to above the knee and brought out through an incision there to allow for preservation of the drain in the thigh wounds. It was secured with suture. The posterior flap was swung anteriorly and tacked at the fascia layer with multiple interrupted Vicryl sutures. The skin was then closed with interrupted nylon sutures. There was a small area of dehiscence of the lesser saphenous harvest site at the skin level, which was also reclosed with interrupted nylon. The wound was dressed with a bulky dressing and Advide wrap being applied and she was awakened in the operating room and extubated. She was taken to the recovery area in stable condition. Job ID: [id number]
--- NOTE | 2019-05-26 16:04 | PRG ---
DATE OF SERVICE: 05/26/2019 SERVICE: Pulmonary Medicine. INTERVAL HISTORY: The patient is doing really well from a breathing standpoint. She denies any chest pain, fevers, or chills. She has significant stump discomfort. She is immediately postop from her above-knee amputation. Otherwise, there has been no change to her condition. PHYSICAL EXAMINATION: VITAL SIGNS: Afebrile, pulse 74, blood pressure 152/95, respirations 19, and saturation is 100% on room air. GENERAL: The patient is awake and alert, in no apparent distress. LUNGS: Decent air entry without any prolonged expiratory phase or wheezing present. HEART: Normal rate and regular. ABDOMEN: Soft, nontender, and nondistended. Bowel sounds are positive. MUSCULOSKELETAL: No cyanosis or clubbing. There is no pitting in the bilateral lower extremities. The left lower extremity is surgically absent below the knee. NEUROLOGIC: Grossly nonfocal. LABORATORY DATA: WBC 6.3, hemoglobin 8.2, and platelets 172,000. INR 1.4. The pH 7.44, pCO2 of 30, and PO2 of 100. Basic metabolic profile is unremarkable otherwise. Most recent cultures are negative. Clostridium difficile antigen and toxin were unremarkable from the 12th. Lactoferrin was normal. Pseudomonas, Peptostreptococcus, Propionibacterium, Haemophilus, and Enterobacter have all been growing from various spots. ASSESSMENT: 1. Peripheral vascular disease, severe, status post multiple operations. 2. Below-knee amputation on the left, postop day zero. 3. Acute blood loss anemia. 4. Bacteremia secondary to Pseudomonas, though polymicrobial involvement is likely. 5. Sepsis without end-organ damage, resolving. DISCUSSION AND PLAN: Supportive care will be continued through time. Pulmonary/Critical Care will follow while she remains in this location. Hopefully, she will not have additional bleeding events in the left groin. We will repeat hemoglobin and hematocrit in the morning. Job ID: [id number]
[2019-05-26] MEDS ORDERED: Rocuronium Bromide 10 MG/ML (10ML VIAL) ONE (16:13)
[2019-05-26] MEDS ORDERED: Glycopyrrolate 0.2 MG/ML 5 ML SYRINGE ONE (16:13)
[2019-05-26] MEDS ORDERED: Ondansetron PF 4 MG/2 ML Vial ONE (16:13)
[2019-05-26] MEDS ORDERED: PROPOFOL 200 MG/20 ML VIAL ONE (16:13)
[2019-05-26] MEDS ORDERED: Dexamethasone 20 MG/5 ML VIAL ONE (16:13)
--- NOTE | 2019-05-26 17:36 | PRG ---
DATE OF SERVICE: 05/26/2019 SUBJECTIVE: Ms. Whaley unfortunately lost her left foot at the BKA level and on the she required an emergency left groin exploration to control anastomotic bleeding, explantation of cadaveric vein and common femoral artery, posterior tibial artery bypass with incision and drainage with multiple leg incisions. OBJECTIVE: VITAL SIGNS: Showed normal temperature and blood pressure 113/55, pulse is 73. GENERAL: She is awake, in no distress, oriented. LUNGS: Clear. HEART: S1 and S2. Regular rate. ABDOMEN: Soft with dressing over the left groin. EXTREMITIES: Left BKA site dressing not removed. LABORATORY DATA: White cell count is 6.3, hemoglobin 8.2, platelets 172, 67% neutrophils, 20% lymphocytes. Sodium 140, creatinine 0.61. Microbiology from the groin catheter site still pending. She had a C. diff from May 23 which showed negative antigen and toxin. Gram stain from the samples with no organisms seen and a few wbc's. Previous cultures with organisms described. ASSESSMENT AND DISCUSSION: Peripheral vascular disease, coronary artery disease, multiple vascular procedures, now redo procedure which unfortunately was not successful. The patient developed Pseudomonas aeruginosa infection and also other organisms part of the process and she will continue with antimicrobial as planned previously for a protracted period of time. I believe we will extend the duration of therapy until June 28 very likely there is involvement of vascular structures at the groin site. Job ID: [id number]
[2019-05-26] MEDS: Atorvastatin Calcium 40 MG TAB PO SCH (20:05)
[2019-05-26] MEDS: traZODone HCl 50 MG TAB PO SCH (20:05)
[2019-05-26] MEDS: Melatonin 3 MG TAB PO SCH (20:06)
[2019-05-26] MEDS: Cepastat Lozenges 1 LOZ PO PRN (20:29)
[2019-05-27] MEDS: Sodium Chloride 0.9% 1,000 ML IV SCH (00:08)
[2019-05-27] MEDS: Piperacillin/Tazobactam 4.5 GM in Sodium Chloride 0.9% 100 ML IVPB SCH ×3 (00:09→15:31)
[2019-05-27] MEDS: HYDROmorphone 2 MG TAB PO PRN ×6 (00:28→20:29)
[2019-05-27 04:50] LABS: Hemoglobin 8.2 g/dL (12.0-16.0)
[2019-05-27] MEDS: Clopidogrel Bisulfate 75 MG TAB PO SCH (08:33)
[2019-05-27] MEDS: Aspirin Chewable 81 MG TAB PO SCH ×2 (08:33→08:34)
[2019-05-27] MEDS: Metoprolol Tartrate 25 MG TAB PO SCH ×2 (08:34→20:31)
[2019-05-27] MEDS: Aspirin 81 mg Enteric Coated Tablet PO SCH (08:36)
--- NOTE | 2019-05-27 13:21 | PRG ---
DATE OF SERVICE: 05/27/2019 SERVICE: Pulmonary Medicine. INTERVAL HISTORY: The patient is doing fine from a respiratory standpoint. She is breathing comfortably. Has no complaints of chest discomfort, nausea, or vomiting. Otherwise, there has been no change to her condition. PHYSICAL EXAMINATION: VITAL SIGNS: Afebrile, pulse 74, blood pressure 120/68, respirations 14, and saturation 98% on room air. GENERAL: The patient is awake and alert, in no apparent distress. LUNGS: Very good air entry without any prolonged expiratory phase, wheezing, or crackles. HEART: Normal rate, regular. ABDOMEN: Soft, nontender, nondistended. Bowel sounds are positive. MUSCULOSKELETAL: No cyanosis or clubbing. No pitting in the bilateral lower extremities. The left lower extremity is surgically absent below the knee. NEUROLOGIC: Nonfocal. LABORATORY DATA: Hemoglobin 8.2. All culture results from the onward are unremarkable. ASSESSMENT: 1. Peripheral vascular disease, severe, status post multiple operations. 2. Below-knee amputation, postop day #1. 3. Acute blood loss anemia, stable. 4. Bacteremia secondary to pseudomonas. 5. Sepsis without end-organ damage, resolving. DISCUSSION AND PLAN: The patient is doing fine from a respiratory standpoint. From a purely lung standpoint, she is currently stable for transition out of the hospital. Pulmonary will continue to follow while she remains in-house, however. Laboratory holiday will be provided for Ms. Whaley. Job ID: [id number]
[2019-05-27] MEDS: Enoxaparin Sodium 40 MG/0.4 ML SYRINGE SC SCH (20:29)
[2019-05-27] MEDS: Atorvastatin Calcium 40 MG TAB PO SCH (20:31)
[2019-05-27] MEDS: traZODone HCl 50 MG TAB PO SCH (20:32)
[2019-05-27] MEDS: Melatonin 3 MG TAB PO SCH (20:32)
[2019-05-28] MEDS: HYDROmorphone 2 MG TAB PO PRN ×6 (00:36→21:09)
[2019-05-28] MEDS: Piperacillin/Tazobactam 4.5 GM in Sodium Chloride 0.9% 100 ML IVPB SCH ×4 (00:36→23:54)
[2019-05-28] MEDS: Aspirin Chewable 81 MG TAB PO SCH (08:23)
[2019-05-28] MEDS: Metoprolol Tartrate 25 MG TAB PO SCH ×2 (08:23→21:19)
[2019-05-28] MEDS: Clopidogrel Bisulfate 75 MG TAB PO SCH (08:23)
[2019-05-28 09:10] LABS: Fungus Stain Final report (.)
--- NOTE | 2019-05-28 10:13 | PRG ---
DATE OF SERVICE: 05/28/2019 SERVICE: Pulmonary Medicine. INTERVAL HISTORY: The patient is doing fine from respiratory standpoint. Denies any current fevers, chills, nausea, vomiting, or diarrhea. Otherwise, there has been no interval change to her condition. She had a laboratory holiday this morning. She did not have any events overnight. Pain control is her major issue here. PHYSICAL EXAMINATION: VITAL SIGNS: Afebrile, pulse 75, blood pressure 152/76, respirations 16, and saturation 97% on room air. GENERAL: The patient is awake and alert, in no apparent distress. LUNGS: Decent air entry. There is no prolonged expiratory phase, wheezing, rhonchi, or crackles present. HEART: Normal rate and regular. ABDOMEN: Soft, nontender, and nondistended. Bowel sounds are positive. MUSCULOSKELETAL: No cyanosis or clubbing. No pitting in the bilateral lower extremities. NEUROLOGIC: Grossly nonfocal. ASSESSMENT: 1. Peripheral vascular disease, severe, status post multiple operations. 2. Below-knee amputation, postop day #2. 3. Acute blood loss anemia, stable. 4. Bacteremia secondary to Pseudomonas. 5. Sepsis without end-organ damage. DISCUSSION AND PLAN: The patient remains stable for transition out of the IMCU to the surgical unit once again. Pain control is her major issue. From a purely respiratory standpoint, she is stable for transition out of the hospital. I will follow intermittently while the patient remains inhouse. Please notify me if she has any additional setbacks. Job ID: [id number]
[2019-05-28 13:25] LABS: Actual Bicarbonate (HCO3a) 19.8 mEq/L (22-28); Analyzer IN Cardio OR; Base Excess (BEa) -4.6 mEq/L (-2.0 to +3.0); CO2 Tension 33.4 mmHg (35.0-45.0); Calcium, Ionized 1.16 mmol/L (1.12-1.30); Carboxyhemoglobin (COHb) 0.9 gm% (0.0-3.0); Hemoglobin (Hb) 7.9 g/dL (12.0-16.0); Potassium - ABG Lab 3.44 mmol/L (3.70-5.30); pH, Arterial 7.39 (7.35-7.45)
[2019-05-28 13:26] LABS: Puncture Site ALINE
[2019-05-28 13:26] LABS: Actual Bicarbonate (HCO3a) 17.5 mEq/L (22-28); Analyzer IN Cardio OR; Base Excess (BEa) -8.1 mEq/L (-2.0 to +3.0); CO2 Tension 35.7 mmHg (35.0-45.0); Carboxyhemoglobin (COHb) 1.2 gm% (0.0-3.0); Hemoglobin (Hb) 7.4 g/dL (12.0-16.0); O2 Tension (PaO2) 455.9 mmHg (> 80.0); Potassium - ABG Lab 3.61 mmol/L (3.70-5.30); pH, Arterial 7.31 (7.35-7.45)
[2019-05-28 13:35] LABS: Puncture Site ALINE
[2019-05-28] MEDS: traZODone HCl 50 MG TAB PO SCH (21:09)
[2019-05-28] MEDS: Atorvastatin Calcium 40 MG TAB PO SCH (21:09)
[2019-05-28] MEDS: Melatonin 3 MG TAB PO SCH (21:09)
[2019-05-28] MEDS: Enoxaparin Sodium 40 MG/0.4 ML SYRINGE SC SCH (21:10)
[2019-05-28] MEDS: Cepastat Lozenges 1 LOZ PO PRN (21:18)
[2019-05-29] MEDS: HYDROmorphone 2 MG TAB PO PRN ×6 (01:10→22:05)
[2019-05-29] MEDS: Metoprolol Tartrate 25 MG TAB PO SCH ×2 (09:41→20:50)
[2019-05-29] MEDS: Clopidogrel Bisulfate 75 MG TAB PO SCH (09:41)
[2019-05-29] MEDS: Aspirin Chewable 81 MG TAB PO SCH (09:41)
[2019-05-29] MEDS: Piperacillin/Tazobactam 4.5 GM in Sodium Chloride 0.9% 100 ML IVPB SCH ×3 (09:43→23:57)
[2019-05-29 18:39] LABS: Puncture Site ALINE
[2019-05-29] MEDS: traZODone HCl 50 MG TAB PO SCH (20:49)
[2019-05-29] MEDS: Atorvastatin Calcium 40 MG TAB PO SCH (20:49)
[2019-05-29] MEDS: Melatonin 3 MG TAB PO SCH (20:49)
[2019-05-29] MEDS: Enoxaparin Sodium 40 MG/0.4 ML SYRINGE SC SCH (20:50)
[2019-05-29] MEDS: Cepastat Lozenges 1 LOZ PO PRN (20:57)
[2019-05-30] MEDS: HYDROmorphone 2 MG TAB PO PRN ×4 (06:31→20:47)
[2019-05-30] MEDS: Piperacillin/Tazobactam 4.5 GM in Sodium Chloride 0.9% 100 ML IVPB SCH ×3 (09:03→23:10)
[2019-05-30] MEDS: Metoprolol Tartrate 25 MG TAB PO SCH ×2 (09:04→20:43)
[2019-05-30] MEDS: Clopidogrel Bisulfate 75 MG TAB PO SCH (09:04)
[2019-05-30] MEDS: Aspirin Chewable 81 MG TAB PO SCH (09:04)
--- NOTE | 2019-05-30 10:34 | PRG ---
DATE OF SERVICE: 05/30/2019 SERVICE: Pulmonary Medicine. INTERVAL HISTORY: The patient is doing outstanding from respiratory standpoint. She has yet to be too terribly mobile. Most of this is because she is scared of moving. She has had 2 life-threatening bleeding events associated with moving. As such, she continues to make efforts to take it slowly. She denies any fevers. She is eating comfortably. PHYSICAL EXAMINATION: VITAL SIGNS: Afebrile, pulse 85, blood pressure 114/66, respirations 16, saturation 96% on room air. GENERAL: The patient is awake and alert, in no apparent distress. LUNGS: Very good air entry. No prolonged expiratory phase or wheezing is present. HEART: Normal rate and regular. ABDOMEN: Soft, nontender, nondistended. Bowel sounds are positive. MUSCULOSKELETAL: No cyanosis or clubbing. There is no pitting in the right lower extremity. Left lower extremity is surgically absent below the knee. ASSESSMENT: 1. Peripheral vascular disease, severe, status post multiple operations. 2. Below-knee amputation. 3. Acute blood loss anemia, stable. 4. Bacteremia secondary to Pseudomonas. 5. Sepsis without end-organ damage, resolved. DISCUSSION AND PLAN: The patient is doing fine from respiratory standpoint. She remains stable for transition out of the hospital from purely respiratory standpoint. We will get a Glover catheter out of her to prevent a catheter associated infection. If she has difficulty mobilizing, we can certainly use a sure wick urine collection system. I will continue to follow intermittently while the patient remains inhouse. If she gets into trouble, please give me a phone call. Job ID: [id number] MTDD
[2019-05-30] MEDS: Atorvastatin Calcium 40 MG TAB PO SCH (20:43)
[2019-05-30] MEDS: Melatonin 3 MG TAB PO SCH (20:43)
[2019-05-30] MEDS: traZODone HCl 50 MG TAB PO SCH (20:43)
[2019-05-30] MEDS: Enoxaparin Sodium 40 MG/0.4 ML SYRINGE SC SCH (20:44)
[2019-05-31] MEDS: Piperacillin/Tazobactam 4.5 GM in Sodium Chloride 0.9% 100 ML IVPB SCH ×3 (09:05→23:50)
[2019-05-31] MEDS: Aspirin Chewable 81 MG TAB PO SCH (09:05)
[2019-05-31] MEDS: Metoprolol Tartrate 25 MG TAB PO SCH ×2 (09:05→20:54)
[2019-05-31 20:07] LABS: Fungus Stain Final report (.)
[2019-05-31] MEDS: Enoxaparin Sodium 40 MG/0.4 ML SYRINGE SC SCH (20:54)
[2019-05-31] MEDS: Atorvastatin Calcium 40 MG TAB PO SCH (20:55)
[2019-05-31] MEDS: Melatonin 3 MG TAB PO SCH (20:55)
[2019-05-31] MEDS: HYDROmorphone 2 MG TAB PO PRN (20:55)
[2019-05-31] MEDS: traZODone HCl 50 MG TAB PO SCH (20:55)
[2019-06-01] MEDS: HYDROmorphone 2 MG TAB PO PRN ×3 (08:45→21:46)
[2019-06-01] MEDS: Aspirin Chewable 81 MG TAB PO SCH (08:46)
[2019-06-01] MEDS: Metoprolol Tartrate 25 MG TAB PO SCH ×2 (08:46→20:48)
[2019-06-01] MEDS: Piperacillin/Tazobactam 4.5 GM in Sodium Chloride 0.9% 100 ML IVPB SCH ×3 (08:46→23:23)
[2019-06-01] MEDS: Enoxaparin Sodium 40 MG/0.4 ML SYRINGE SC SCH (20:47)
[2019-06-01] MEDS: traZODone HCl 50 MG TAB PO SCH (20:48)
[2019-06-01] MEDS: Melatonin 3 MG TAB PO SCH (20:48)
[2019-06-01] MEDS: Atorvastatin Calcium 40 MG TAB PO SCH (20:48)
[2019-06-02] MEDS: HYDROmorphone 2 MG TAB PO PRN ×5 (01:40→21:37)
[2019-06-02] MEDS: Piperacillin/Tazobactam 4.5 GM in Sodium Chloride 0.9% 100 ML IVPB SCH ×2 (09:44→15:57)
[2019-06-02] MEDS: Aspirin Chewable 81 MG TAB PO SCH (09:44)
[2019-06-02] MEDS: Metoprolol Tartrate 25 MG TAB PO SCH ×2 (09:44→21:33)
--- NOTE | 2019-06-02 13:44 | PRG ---
DATE OF SERVICE: 06/02/2019 SERVICE: Pulmonary Medicine. INTERVAL HISTORY: The patient is doing okay from respiratory standpoint. Breathing comfortably. No complaints of chest pain, fevers, cough, nausea, or vomiting. Otherwise, there has been no interval change to her condition. She has been able to get up and out of bed. She sat at a bedside chair. She has not had any additional bleeding events. PHYSICAL EXAMINATION: VITAL SIGNS: Afebrile, pulse is 61, blood pressure 105/57, respirations 14, saturation 95% on room air. GENERAL: The patient is awake and alert, in no apparent distress. LUNGS: Very good air entry without any prolonged expiratory phase or wheezing. HEART: Normal rate, regular. ABDOMEN: Soft, nontender, nondistended. Bowel sounds are positive. MUSCULOSKELETAL: No cyanosis or clubbing. There is no pitting in the bilateral lower extremities. Her left lower extremity is absent below the knee. Her wound is clean, dry, and intact. That being said, there is minimal duskiness to parts of the skin at the suture line. ASSESSMENT: 1. Peripheral vascular disease, severe, status post multiple operations. 2. Below-knee amputation of the left lower extremity. 3. Acute blood loss anemia, stable. 4. Bacteremia secondary to Pseudomonas. 5. Sepsis without end-organ damage. DISCUSSION AND PLAN: I will check CBC, basic metabolic profile, magnesium, and phosphorus tomorrow morning. Pulmonary will continue to follow, intermittently while the patient remains inhouse. From purely respiratory perspective, she remained stable for transition out of the hospital. Job ID: [id number]
[2019-06-02] MEDS: Enoxaparin Sodium 40 MG/0.4 ML SYRINGE SC SCH (21:31)
[2019-06-02] MEDS: traZODone HCl 50 MG TAB PO SCH (21:32)
[2019-06-02] MEDS: Atorvastatin Calcium 40 MG TAB PO SCH (21:32)
[2019-06-02] MEDS: Melatonin 3 MG TAB PO SCH (21:32)
[2019-06-03] MEDS: HYDROmorphone 2 MG TAB PO PRN ×3 (03:16→20:31)
[2019-06-03 03:36] LABS: #Eosinphils 0.2 thou/uL (0.0-0.7); #Lymphocytes 1.3 thou/uL (1.20-3.40); #Monocytes 0.5 thou/uL (0.11-0.59); #Neutrophils 2.9 thou/uL (1.40-6.50); %Eosinophils 3.6 % (0.0-10.0); %Lymphocytes 27.2 % (21.0-51.0); %Monocytes 9.9 % (0.0-10.0); %Neutrophils 59.3 % (42.0-75.0); Hemoglobin 9.1 g/dL (12.0-16.0); Mean Corpuscular HGB CONC 31.9 g/dL (32.0-36.0); Mean Corpuscular Hemoglobin 28.2 pg (27.0-31.0); Mean Corpuscular Volume 88.5 fL (78.0-98.0); Mean Platelet Volume 7.3 fL (7.4-10.4); Platelet Count 231 thou/uL (130-400); RBC Distribution Width 14.2 % (11.5-14.5); Red Blood Cell (RBC) Count 3.23 mill/uL (4.20-5.40); White Blood Cell (WBC) Count 4.9 thou/uL (4.8-10.8)
[2019-06-03 03:48] LABS: Anion Gap 10 mmol/L (10-20); BUN (Urea Nitrogen) 11 mg/dL (9.8-20.1); Calc. Creatinine Clearance 146 mL/min (70-130); Calcium 10.2 mg/dL (7.8-10.44); Carbon Dioxide 26 mmol/L (23-31); Chloride 106 mmol/L (98-107); Estimated GFR-MDRD Greater than 90; Glucose 99 mg/dL (80-115); Magnesium 1.8 mg/dL (1.6-2.6); Phosphorus 3.2 mg/dL (2.3-4.7); Potassium 4.2 mmol/L (3.5-5.1); Sodium 138 mmol/L (136-145)
[2019-06-03] MEDS: Metoprolol Tartrate 25 MG TAB PO SCH ×2 (10:08→20:33)
[2019-06-03] MEDS: Aspirin Chewable 81 MG TAB PO SCH (10:08)
[2019-06-03] MEDS: Piperacillin/Tazobactam 4.5 GM in Sodium Chloride 0.9% 100 ML IVPB SCH ×2 (10:09→17:41)
[2019-06-03] MEDS: traZODone HCl 50 MG TAB PO SCH (20:31)
[2019-06-03] MEDS: Melatonin 3 MG TAB PO SCH (20:31)
[2019-06-03] MEDS: Atorvastatin Calcium 40 MG TAB PO SCH (20:31)
[2019-06-03] MEDS: Enoxaparin Sodium 40 MG/0.4 ML SYRINGE SC SCH (20:32)
[2019-06-04] MEDS: Piperacillin/Tazobactam 4.5 GM in Sodium Chloride 0.9% 100 ML IVPB SCH ×4 (00:57→23:34)
[2019-06-04] MEDS: HYDROmorphone 2 MG TAB PO PRN ×4 (03:02→21:31)
[2019-06-04] MEDS: Aspirin Chewable 81 MG TAB PO SCH (09:50)
[2019-06-04] MEDS: Metoprolol Tartrate 25 MG TAB PO SCH ×2 (09:50→20:46)
--- NOTE | 2019-06-04 12:45 | PRG ---
DATE OF SERVICE: 06/04/2019 SERVICE: Pulmonary Medicine. INTERVAL HISTORY: The patient had a spot open at rehab yesterday, but refused to go. She is really quite afraid about getting out of the hospital at this point. There has been no interval change to her condition otherwise. PHYSICAL EXAMINATION: VITAL SIGNS: Afebrile, pulse is 63, blood pressure 91/41, respirations 16, and saturation 94% on room air. GENERAL: The patient is awake and alert, in no apparent distress. LUNGS: Decent air entry. No prolonged expiratory phase or wheezing is appreciated. HEART: Normal rate and regular. ABDOMEN: Soft, nontender, and nondistended. Bowel sounds are positive. MUSCULOSKELETAL: No cyanosis or clubbing. No pitting in the bilateral lower extremities. NEUROLOGIC: Grossly nonfocal. LABORATORY DATA: WBC 4.9, hemoglobin 9.1, and platelets 231,000. INR 1.4. Basic metabolic profile, magnesium and phosphorus were completely unremarkable. ASSESSMENT: 1. Acute blood loss anemia, improving. 2. Below-knee amputation of the left lower extremity. 3. Peripheral vascular disease, severe, status post multiple operations. 4. Bacteremia, secondary to Pseudomonas, resolved. 5. Sepsis without end-organ damage. DISCUSSION AND PLAN: The patient is stable for transition out of the hospital. She will be transferred to the floor. I will continue to follow the patient intermittently while she remains in-house. At this point, from my perspective, she has no additional requirements for inpatient monitoring from a medical perspective. She may need to be in-house from a surgical perspective, but I have to leave that up to my colleague. Job ID: [id number]
[2019-06-04] MEDS: Atorvastatin Calcium 40 MG TAB PO SCH (20:44)
[2019-06-04] MEDS: traZODone HCl 50 MG TAB PO SCH (20:46)
[2019-06-04] MEDS: Enoxaparin Sodium 40 MG/0.4 ML SYRINGE SC SCH (20:46)
[2019-06-04] MEDS: Melatonin 3 MG TAB PO SCH (20:46)
[2019-06-05] MEDS: Aspirin Chewable 81 MG TAB PO SCH (10:07)
[2019-06-05] MEDS: Metoprolol Tartrate 25 MG TAB PO SCH ×2 (10:07→20:43)
[2019-06-05] MEDS: Piperacillin/Tazobactam 4.5 GM in Sodium Chloride 0.9% 100 ML IVPB SCH ×2 (10:07→16:56)
[2019-06-05] MEDS: HYDROmorphone 2 MG TAB PO PRN (10:13)
[2019-06-05] MEDS ORDERED: HYDROmorphone 2 MG TAB PO PRN ×2 (16:36→16:37)
[2019-06-05] MEDS: Enoxaparin Sodium 40 MG/0.4 ML SYRINGE SC SCH (20:35)
[2019-06-05] MEDS: Melatonin 3 MG TAB PO SCH (20:42)
[2019-06-05] MEDS: Atorvastatin Calcium 40 MG TAB PO SCH (20:43)
[2019-06-05] MEDS: traZODone HCl 50 MG TAB PO SCH (20:44)
[2019-06-06] MEDS: Piperacillin/Tazobactam 4.5 GM in Sodium Chloride 0.9% 100 ML IVPB SCH ×3 (03:49→20:31)
[2019-06-06 05:10] VITALS: BMI 39.4
[2019-06-06] MEDS ORDERED: HYDROmorphone 2 MG TAB PO PRN (06:49)
[2019-06-06] MEDS: Aspirin Chewable 81 MG TAB PO SCH (08:23)
[2019-06-06] MEDS: Metoprolol Tartrate 25 MG TAB PO SCH ×2 (08:23→20:33)
--- NOTE | 2019-06-06 09:51 | PRG ---
DATE OF SERVICE: 06/06/2019 SERVICE: Pulmonary Medicine. INTERVAL HISTORY: The patient is doing fine from Respiratory standpoint. Breathing comfortably. Denies any current chest pain, cough, nausea, vomiting, fevers, or chills. She is breathing comfortably. There were no significant bleeding events. She did not have any events overnight or fevers. PHYSICAL EXAMINATION: VITAL SIGNS: Afebrile, pulse 64, blood pressure 125/77, respirations 16, saturation 95% on room air. GENERAL: The patient is awake and alert, in no apparent distress. LUNGS: Decent air entry. No prolonged expiratory phase or wheezing. HEART: Normal rate regular. ABDOMEN: Soft, nontender, and nondistended. Bowel sounds are positive. MUSCULOSKELETAL: No cyanosis or clubbing. There is no pitting in the right lower extremity. The left lower extremity is surgically absent below the knee. ASSESSMENT: 1. Acute blood loss anemia, stable. 2. Below-knee amputation on the left. 3. Peripheral vascular disease, status post multiple operations. 4. Bacteremia secondary to Pseudomonas, resolved. 5. Sepsis without end-organ damage, resolved. DISCUSSION AND PLAN: The patient is stable for transition out of the hospital. Pulmonary will continue to follow, intermittently while she remains in-house. If she has a significant setback, please call my colleague through the weekend. Job ID: [id number]
[2019-06-06] MEDS: HYDROmorphone 2 MG TAB PO PRN ×2 (18:09→22:03)
[2019-06-06] MEDS: Atorvastatin Calcium 40 MG TAB PO SCH (20:31)
[2019-06-06] MEDS: Melatonin 3 MG TAB PO SCH (20:31)
[2019-06-06] MEDS: traZODone HCl 50 MG TAB PO SCH (20:31)
[2019-06-06] MEDS: Enoxaparin Sodium 40 MG/0.4 ML SYRINGE SC SCH (20:32)
[2019-06-07] MEDS: Piperacillin/Tazobactam 4.5 GM in Sodium Chloride 0.9% 100 ML IVPB SCH ×3 (04:06→20:22)
[2019-06-07] MEDS: HYDROmorphone 2 MG TAB PO PRN ×4 (04:09→19:55)
[2019-06-07] MEDS: Metoprolol Tartrate 25 MG TAB PO SCH ×2 (09:52→20:23)
[2019-06-07] MEDS: Aspirin Chewable 81 MG TAB PO SCH (09:52)
[2019-06-07 18:47] LABS: #Eosinphils 0.2 thou/uL (0.0-0.7); #Lymphocytes 1.5 thou/uL (1.20-3.40); #Monocytes 0.5 thou/uL (0.11-0.59); #Neutrophils 2.8 thou/uL (1.40-6.50); %Basophils 0.2 % (0.0-1.0); %Eosinophils 4.5 % (0.0-10.0); %Lymphocytes 30.1 % (21.0-51.0); %Monocytes 9.2 % (0.0-10.0); Hemoglobin 10.4 g/dL (12.0-16.0); Mean Corpuscular HGB CONC 33.8 g/dL (32.0-36.0); Mean Corpuscular Hemoglobin 29.7 pg (27.0-31.0); Mean Corpuscular Volume 87.9 fL (78.0-98.0); Mean Platelet Volume 7.4 fL (7.4-10.4); Platelet Count 222 thou/uL (130-400); RBC Distribution Width 14.3 % (11.5-14.5)
[2019-06-07] MEDS: Atorvastatin Calcium 40 MG TAB PO SCH (20:23)
[2019-06-07] MEDS: Melatonin 3 MG TAB PO SCH (20:23)
[2019-06-07] MEDS: traZODone HCl 50 MG TAB PO SCH (20:23)
[2019-06-07] MEDS: Enoxaparin Sodium 40 MG/0.4 ML SYRINGE SC SCH (20:24)
[2019-06-08] MEDS: Piperacillin/Tazobactam 4.5 GM in Sodium Chloride 0.9% 100 ML IVPB SCH ×3 (03:34→20:24)
[2019-06-08] MEDS: HYDROmorphone 2 MG TAB PO PRN ×4 (03:35→20:22)
[2019-06-08] MEDS: Aspirin Chewable 81 MG TAB PO SCH (08:44)
[2019-06-08] MEDS: Metoprolol Tartrate 25 MG TAB PO SCH ×2 (08:44→20:25)
[2019-06-08] MEDS: Enoxaparin Sodium 40 MG/0.4 ML SYRINGE SC SCH (20:24)
[2019-06-08] MEDS: Melatonin 3 MG TAB PO SCH (20:25)
[2019-06-08] MEDS: traZODone HCl 50 MG TAB PO SCH (20:25)
[2019-06-08] MEDS: Atorvastatin Calcium 40 MG TAB PO SCH (20:25)
[2019-06-09] MEDS: HYDROmorphone 2 MG TAB PO PRN ×5 (00:41→20:35)
[2019-06-09] MEDS: Piperacillin/Tazobactam 4.5 GM in Sodium Chloride 0.9% 100 ML IVPB SCH ×3 (04:20→20:13)
--- NOTE | 2019-06-09 09:52 | PRG ---
DATE OF SERVICE: 06/09/2019 SERVICE: Pulmonary Medicine. INTERVAL HISTORY: The patient is doing really well from respiratory standpoint. Breathing comfortably. Has no complaints of chest pain, nausea, or vomiting. She did not have any significant overnight events. She did have a little bit of spotting or bleeding previously, but the site that was previously bleeding was not. They actually could not figure out, where the blood was coming from. PHYSICAL EXAMINATION: VITAL SIGNS: Afebrile, pulse 91, blood pressure 110/67, respirations 16, and saturation 93% on 3 L nasal cannula. GENERAL: The patient is awake and alert, in no apparent distress. LUNGS: Very good air entry with no prolonged expiratory phase, wheezing, or crackles. HEART: Normal rate. Regular. ABDOMEN: Soft, nontender, and nondistended. Bowel sounds are positive. MUSCULOSKELETAL: No cyanosis or clubbing. The left lower extremity is surgically absent below the knee. The inferior margin of the incision has a blackened/darkened appearance to it. The superior margin of the skin looks very healthy. ASSESSMENT: 1. Acute blood loss anemia, improving. 2. Below-knee amputation on the left. 3. Peripheral vascular disease, status post multiple operations. 4. Bacteremia secondary to Pseudomonas, resolving. 5. Sepsis without end-organ damage, resolved. DISCUSSION AND PLAN: At this point, the patient remains stable from respiratory and hemodynamic standpoint. She has no further requirements for inpatient Pulmonary/Critical Care opinion, and I will sign off. We will need to pay close attention to the inferior margin of the below-knee amputation incision. There is a possibility that this may not have adequate blood flow for appropriate healing. Please call with additional questions or concerns through time. Job ID: [id number]
[2019-06-09] MEDS: Metoprolol Tartrate 25 MG TAB PO SCH ×2 (09:56→21:52)
[2019-06-09] MEDS: Aspirin Chewable 81 MG TAB PO SCH (09:56)
[2019-06-09] MEDS: Atorvastatin Calcium 40 MG TAB PO SCH (20:13)
[2019-06-09] MEDS: Melatonin 3 MG TAB PO SCH (20:13)
[2019-06-09] MEDS: Enoxaparin Sodium 40 MG/0.4 ML SYRINGE SC SCH (20:13)
[2019-06-09] MEDS: traZODone HCl 50 MG TAB PO SCH (20:13)
[2019-06-10] MEDS: Piperacillin/Tazobactam 4.5 GM in Sodium Chloride 0.9% 100 ML IVPB SCH ×3 (04:15→20:52)
[2019-06-10] MEDS: HYDROmorphone 2 MG TAB PO PRN ×3 (05:34→15:48)
[2019-06-10] MEDS ORDERED: Sterile Water 10 ML VIAL IVP SCH (05:53)
[2019-06-10] MEDS ORDERED: Activase 2 MG VIAL CATH SCH (05:53)
[2019-06-10] MEDS: Metoprolol Tartrate 25 MG TAB PO SCH ×2 (08:56→20:54)
[2019-06-10] MEDS: Aspirin Chewable 81 MG TAB PO SCH (08:58)
[2019-06-10] MEDS: traZODone HCl 50 MG TAB PO SCH (20:53)
[2019-06-10] MEDS: Atorvastatin Calcium 40 MG TAB PO SCH (20:53)
[2019-06-10] MEDS: Enoxaparin Sodium 40 MG/0.4 ML SYRINGE SC SCH (20:53)
[2019-06-10] MEDS: Melatonin 3 MG TAB PO SCH (20:53)
[2019-06-11] MEDS: HYDROmorphone 2 MG TAB PO PRN ×4 (02:17→16:18)
[2019-06-11] MEDS: Piperacillin/Tazobactam 4.5 GM in Sodium Chloride 0.9% 100 ML IVPB SCH ×2 (03:57→12:38)
[2019-06-11 04:01] VITALS: TEMP 98.2
[2019-06-11] MEDS: Metoprolol Tartrate 25 MG TAB PO SCH (09:04)
[2019-06-11] MEDS: Aspirin Chewable 81 MG TAB PO SCH (09:04)
[2019-06-11 11:53] VITALS: BP 124/75
--- NOTE | 2019-06-11 16:19 | DIS ---
DATE OF ADMISSION: 05/07/2019 DATE OF DISCHARGE: 06/11/2019 PRINCIPAL DIAGNOSES: Peripheral vascular disease, ischemic rest pain, and nonhealing wound left lower extremity. SECONDARY DIAGNOSES: Postoperative bleeding and Pseudomonas aeruginosa sepsis. PROCEDURES PERFORMED: Left common femoral artery endarterectomy with [place] greater saphenous vein patch angioplasty with left common femoral artery to posterior tibial artery bypass with composite right and left lesser saphenous vein and left greater saphenous vein tributary graft 05/07/2019. Emergent left groin exploration with control of anastomotic bleeding and redo left common femoral artery to posterior tibial artery bypass with reversed cadaveric greater saphenous vein and posterior tibial artery thrombectomy on 05/14/2019. Emergent left groin exploration with control of anastomotic bleeding and explantation of cadaveric vein graft and incision and drainage of multiple leg incisions on 05/24/2019. Left below-knee amputation on 05/26/2019. HISTORY OF PRESENT ILLNESS AND HOSPITAL COURSE: The patient is a 63-year-old woman, who recently moved here from the [place], [place] area. There in [place], she had undergone multiple open and percutaneous left lower extremity revascularization procedures. She was admitted to the hospital with sudden onset of pain in her left foot that had persisted, but then gradually resolved, but she did have residual severe claudication. Arteriography at that time demonstrated a superficial femoral artery occlusion on that side with luminal irregularity of the infrageniculate popliteal and small, but apparently intact tibial vessels. Multiple stents in the superficial femoral and the popliteal artery could be visualized. She had already had greater saphenous vein harvested from that leg for one of her procedures and the plan at that time was to attempt conservative management to see if collaterals could be recruited to the point that her claudication was more tolerable. When seen for the first time as an outpatient, she had in the interim, had a trivial trauma to the dorsum of that foot when a dog stepped on it and scratched it, that wound had scant evidence a healing and she developed rest pain. Ultrasonographic examination in the office suggested intact lesser saphenous vein in both calves and a modest amount of distal greater saphenous in the asymptomatic leg. After discussing options with her that included revascularization options or primary amputation, she opted for a composite grafting technique utilizing lesser saphenous vein. At the time of that surgery, the completed graft seemed to have marginal flow and upon re-exploration and revision while still in the operating room what had appeared to represent adequate lesser saphenous vein and several areas had scant lumen tributary to the remnant of the greater saphenous system in the proximal thigh, was used as an interposition graft to replace a stenotic segment, but it was still difficult to identify Doppler pulse in the foot, even though one could be easily appreciated within the wounds. The following day, a weak signal could be found transcutaneously a little bit above the knee, that in retrospect may have represented a geniculate collateral as over the next few days, her foot remained painful and progressive discoloration. Discussions about proceeding to amputation doing nothing using saphenous from the contralateral leg or using cadaveric vein were undertaken and by her description at a family member's urging she opted for a use of cadaveric vein. In spite of the known short duration of patency that is typically seen with such grafts. Arrangements were made to obtain an appropriate length cadaveric vein and while in the holding area awaiting her surgery, she went to the bathroom and began having profuse bleeding from the groin incision. Pressure was held. She was taken to the operating room while she was resuscitated. Bleeding was brought under control and then a more formal prep and drape was undertaken and then the composite autologous vein was explanted and replaced with cadaveric vein. In the early postoperative period following her original procedure, she had an isolated fever spike and empiric mendoza culturing showed both blood cultures growing out a Pseudomonas aeruginosa overnight. Her urine culture grew an Enterobacter cloacae and her respiratory culture grew Haemophilus influenzae. Although at the time of her second procedure, all of the incisions looked fine. Empiric cultures were taken and white growth of a Pseudomonas with similar biogram as in the blood culture was grown. Her antibiotic regimen was consolidated from Zosyn and Levaquin to adjust Zosyn and Dr. Lovell with Infectious Disease made recommendations for duration of therapy. She was beginning to demarcate some eschar on the tips of her toes and her wounds seem to be healing well in an abundance of caution. She was to be observed for several extra days pending transfer to a swing bed, where she could complete her antibiotics and participate in physical therapy as part of her convalescence. When on the late afternoon on the , she roughly 10 days postoperatively following her cadaveric vein bypass, she had a second episode of profuse bleeding. Breakdown of the cadaveric vein graft on the proximal anastomotic esparza was brought under control in a fashion similar to how her bleeding had been brought under control at the previous procedure, but it seemed to be unwise to attempt to salvage this bypass and it was explanted. The degree of adhesion to the surrounding common femoral was such that complete isolation of the common femoral in order to remove the greater saphenous vein patch as well as the cadaveric vein graft was difficult and seemed problematic. The vein patch itself seemed to be in excellent shape and it was retained and closed in 2 layers. This was done with the full knowledge that this would be committing the patient to an amputation. The following day, this was discussed the day after that Sunday the . She underwent a below-knee amputation. A drain was left in place. Again in an abundance of caution, transferred to rehabilitation was deferred to try to ease everyone's including mine about making it through the window of time that her third bleeding episode could possibly happen. She was accepted to rehab, but was sufficiently reluctant to go that negotiated alternate plan was made to keep her an additional week before transferring. When she refused rehab transfer the following week that acceptance from by the rehab unit was rescinded and as an alternate plan swing bed an episode was arranged for, where she can complete her course of antibiotics. The groin and thigh wounds are healing well. There is a rim of eschar affecting the incision of the BKA itself as well as an area of the lesser saphenous harvest site on the posterior flap. There is no gross dehiscence, but it is anticipated that there will be eschar separation at some point she will require local wound care to complete healing before she can candy before she can be considered for fitting for a prosthesis. I will plan on seeing her in my office shortly after she is released from [facility]. Job ID: [id number]
== END 2019-06-11 18:49 | DRG 239 ==
LOC: SURG A 05-07 05:43 → CCU 05-07 18:21 → SJJU 05-09 11:24 → CCU 05-14 10:44 → IMCU/EMU 05-21 19:07 → CCU 05-24 21:47 → IMCU/EMU 05-27 13:55 → SURG A 06-04 18:57
PROVIDERS: ADMIT Thoracic Surgery (Cardiothoracic Vascular Surgery); ATTEND Thoracic Surgery (Cardiothoracic Vascular Surgery)
PROC: 04CL0ZZ Extirpation of Matter from Left Femoral Artery, Open Approach (ICD-10-PCS; 2019-05-07)
PROC: 04UL07Z Supplement Left Femoral Artery with Autologous Tissue Substitute, Open Approach (ICD-10-PCS; 2019-05-07)
PROC: 041L09N Bypass Left Femoral Artery to Posterior Tibial Artery with Autologous Venous Tissue, Open Approach (ICD-10-PCS; 2019-05-07)
PROC: 06BQ0ZZ Excision of Left Saphenous Vein, Open Approach (ICD-10-PCS; 2019-05-07)
PROC: 06BP0ZZ Excision of Right Saphenous Vein, Open Approach (ICD-10-PCS; 2019-05-07)
PROC: 0Y380ZZ Control Bleeding in Left Femoral Region, Open Approach (ICD-10-PCS; 2019-05-14)
PROC: 04CS0ZZ Extirpation of Matter from Left Posterior Tibial Artery, Open Approach (ICD-10-PCS; 2019-05-14)
PROC: 30233K1 Transfusion of Nonautologous Frozen Plasma into Peripheral Vein, Percutaneous Approach (ICD-10-PCS; 2019-05-14)
PROC: 30233N1 Transfusion of Nonautologous Red Blood Cells into Peripheral Vein, Percutaneous Approach (ICD-10-PCS; 2019-05-14)
PROC: 30233M1 Transfusion of Nonautologous Plasma Cryoprecipitate into Peripheral Vein, Percutaneous Approach (ICD-10-PCS; 2019-05-14)
PROC: 02HV33Z Insertion of Infusion Device into Superior Vena Cava, Percutaneous Approach (ICD-10-PCS; 2019-05-22)
PROC: B548ZZA Ultrasonography of Superior Vena Cava, Guidance (ICD-10-PCS; 2019-05-22)
PROC: 0Y380ZZ Control Bleeding in Left Femoral Region, Open Approach (ICD-10-PCS; 2019-05-24)
PROC: 5A1935Z Respiratory Ventilation, Less than 24 Consecutive Hours (ICD-10-PCS; 2019-05-24)
PROC: 0Y6J0Z1 Detachment at Left Lower Leg, High, Open Approach (ICD-10-PCS; principal; 2019-05-26)
DX: I70.222 Atherosclerosis of native arteries of extremities with rest pain, left leg (principal); A41.52 Sepsis due to Pseudomonas; J96.90 Respiratory failure, unspecified, unspecified whether with hypoxia or hypercapnia; T81.31XA Disruption of external operation (surgical) wound, not elsewhere classified, initial encounter; D62 Acute posthemorrhagic anemia; N39.0 Urinary tract infection, site not specified; T82.312A Breakdown (mechanical) of femoral arterial graft (bypass), initial encounter; T82.838A Hemorrhage due to vascular prosthetic devices, implants and grafts, initial encounter; R19.7 Diarrhea, unspecified; B96.89 Other specified bacterial agents as the cause of diseases classified elsewhere; Y83.9 Surgical procedure, unspecified as the cause of abnormal reaction of the patient, or of later complication, without mention of misadventure at the time of the procedure; Y92.239 Unspecified place in hospital as the place of occurrence of the external cause; I10 Essential (primary) hypertension; I25.10 Atherosclerotic heart disease of native coronary artery without angina pectoris; E66.01 Morbid (severe) obesity due to excess calories; Z95.5 Presence of coronary angioplasty implant and graft; Z88.6 Allergy status to analgesic agent; Z88.4 Allergy status to anesthetic agent; Z88.5 Allergy status to narcotic agent; Z88.8 Allergy status to other drugs, medicaments and biological substances; Z90.49 Acquired absence of other specified parts of digestive tract; Z98.51 Tubal ligation status; Z87.891 Personal history of nicotine dependence; I25.2 Old myocardial infarction; Z86.73 Personal history of transient ischemic attack (TIA), and cerebral infarction without residual deficits; Z68.39 Body mass index [BMI] 39.0-39.9, adult
CPT/HCPCS: 36415; 36416; 36430; 36569; 71045; 71046; 80048; 82805; 83630; 83735; 84100; 85007; 85014; 85018; 85025; 85027; 85384; 85610; 85730; 86850; 86900; 86901; 86921; 87040; 87070; 87076; 87077; 87086; 87102; 87149; 87186; 87205; 87206; 87324; 87449; 88307; 94002; 94003; C1751; C1769; G0283-GP; J0690; J1100; J1170; J1630; J1642; J1644; J1650; J1815; J1956; J2250; J2370; J2405; J2440; J2543; J2550; J2704; J2720; J2997; J3010; J3475; J3490; J7050; P9012; P9016; P9035; P9045; P9059